=== PATIENT | female | born 1935 | race Caucasian/White ===

== ENCOUNTER 2018-03-11 20:31 | Inpatient (IN) | payer MEDICARE, OTHER ==
[2018-03-11] MEDS ORDERED: SODIUM CHLORIDE 0.9% 500 ML IV STA (21:39)
[2018-03-11] MEDS ORDERED: MORPHINE SULFATE 4 MG/ML SYRINGE IV STA (21:39)
[2018-03-11] MEDS ORDERED: ONDANSETRON 4 MG/2 ML VIAL IVP STA (21:39)
--- NOTE | 2018-03-11 21:50 | ED ---
Abdominal Pain HPI - General Chief Complaint: Abdominal Pain Stated Complaint: Abd Pain Time Seen by Provider: 03/11/18 21:25 Source: patient, family Mode of arrival: ambulatory Limitations: no limitations - History of Present Illness Initial Comments: Patient is an 82-year-old female presented for abdominal pain. She states that she called her PCP today and PCP told her that she was concerned about as by mouth because her last bowel movement was 3 days ago. The abdominal pain is described as diffuse and associated with bloating. The pain feels stabbing and constant and is better with laying down and worse with movement. She denies any fevers or chills as well as nausea/vomiting/diarrhea or urinary complaints. She also admits to some back pain for last 2 weeks - Related Data Home Medications Medication Instructions Recorded Confirmed Albuterol Sulfate [Proair Hfa] 1 - 2 puff INHALATION Q6HR PRN 03/03/16 03/03/16 Aspirin [Adult Low Dose Aspirin EC] 81 mg PO DAILY 03/03/16 03/03/16 Atorvastatin [Lipitor] 20 mg PO HS 03/03/16 03/03/16 Cetirizine HCl [Zyrtec] 10 mg PO DAILY 03/03/16 03/03/16 Cholecalciferol [Vitamin D3] 2,000 unit PO DAILY 03/03/16 03/03/16 Cyanocobalamin (Vitamin B-12) 5,000 mcg PO DAILY 03/03/16 03/03/16 [Vitamin B12] DULoxetine HCL [Cymbalta] 60 mg PO DAILY 03/03/16 03/03/16 Furosemide [Lasix] 20 mg PO DAILY PRN 03/03/16 03/03/16 HYDROcodone/APAP 10-325MG [[place] 1 tab PO Q6H PRN 03/03/16 03/03/16 10-325] Hyoscyamine Sulfate [Levsin] 0.125 mg PO AC-BRKFST 03/03/16 03/03/16 LORazepam [Ativan] 1 mg PO BID 03/03/16 03/03/16 Levothyroxine Sodium [Synthroid] 175 mcg PO DAILY 03/03/16 03/03/16 Losartan Potassium 100 mg PO DAILY 03/03/16 03/03/16 Metoprolol Succinate (ER) [Toprol 25 mg PO DAILY 03/03/16 03/03/16 Xl] Mometasone/Formoterol [Dulera 100 2 puff INHALATION BID PRN 03/03/16 03/03/16 Mcg/5 Mcg Inhaler] Multivit-Min36/Iron/Folic Acid 1 each PO DAILY 03/03/16 03/03/16 [Geritol Complete Tablet] Olympia-3 Fatty Acids [[place]-3] 1,000 mg PO DAILY 03/03/16 03/03/16 Omeprazole 40 mg PO BID 03/03/16 03/03/16 traZODone HCL [Desyrel] 100 mg PO HS 03/03/16 03/03/16 Allergies Allergy/AdvReac Type Severity Reaction Status Date / Time grass pollen Allergy Unknown Verified 03/11/18 20:59 Sulfa (Sulfonamide Allergy Rash/Hives Verified 03/11/18 21:00 Antibiotics) dust AdvReac Unknown Uncoded 03/11/18 20:59 Review of Systems ROS Statement: Those systems with pertinent positive or pertinent negative responses have been documented in the HPI. Constitutional: Negative for chills, fatigue and fever. HENT: Negative for congestion. Respiratory: Negative for chest tightness, shortness of breath and wheezing. Negative for cough Cardiovascular: Negative for chest pain and palpitations. Gastrointestinal: Positive for abdominal pain. Negative for abdominal distention , diarrhea, nausea and vomiting. Genitourinary: Negative for dysuria. Musculoskeletal: Positive for back pain, negative for neck pain and neck stiffness. Skin: Negative for color change. Neurological: Negative for dizziness, speech difficulty, weakness and light- headedness. Psychiatric/Behavioral: Negative for agitation and confusion. Negative for anxiety ROS Other: All systems not noted in ROS Statement are negative. Past Medical History Past Medical History: Asthma, Fibromyalgia, GERD/Reflux, Hyperlipidemia, Hypertension, Rheumatoid Arthritis (RA), Thyroid Disorder History of Any Multi-Drug Resistant Organisms: None Reported Past Surgical History: Appendectomy, Bariatric Surgery, Cholecystectomy, Heart Catheterization With Stent, Hysterectomy, Orthopedic Surgery Additional Past Surgical History / Comment(s): lap band 05/06/2004, left shoulder replaced, Right ear growth Past Anesthesia/Blood Transfusion Reactions: No Reported Reaction Date of Last Stent Placement:: 03/19/2010 Past Psychological History: Depression Smoking Status: Former smoker Past Alcohol Use History: Rare Past Drug Use History: None Reported - Past Family History Mother Family Medical History: Congestive Heart Failure (CHF) General Exam - General Exam Comments Initial Comments: Constitutional: Pt is oriented to person, place, and time. Pt appears well- developed and well-nourished. No distress. HENT: Head: Normocephalic and atraumatic. Eyes: EOM are normal. Neck: Normal range of motion. Neck supple. Cardiovascular: Normal rate, regular rhythm, S1 normal, S2 normal and normal heart sounds. Exam reveals no gallop and no friction rub. No murmur heard. Pulmonary/Chest: Effort normal and breath sounds normal. No tachypnea and no bradypnea. No respiratory distress. No wheezes or rales noted. Abdominal: Soft. Bowel sounds are normal. Pt exhibits no shifting dullness, no distension, no pulsatile liver, no fluid wave, no abdominal bruit and no ascites. There is no tenderness. There is no rigidity, no rebound, no guarding, no tenderness at McBurney's point and negative Abraham's sign. Musculoskeletal: Normal range of motion. Tenderness to palpation of the right paraspinal muscles in the thoracic region. No midline tenderness. Neurological: Pt is alert and oriented to person, place, and time. No cranial nerve deficit. Skin: Skin is warm and dry. No rash noted. Pt is not diaphoretic. No erythema. No pallor. Psychiatric: Pt has a normal mood and affect. Pt behavior is normal. Thought content normal. Limitations: no limitations Course Vital Signs 03/11/18 03/11/18 20:54 22:26 Temperature 99.4 F Pulse Rate 100 94 Respiratory 20 15 Rate Blood Pressure 145/69 155/67 O2 Sat by Pulse 95 93 L Oximetry Medical Decision Making - Medical Decision Making Sepsis was identified at approximately 11:30 PM secondary to diverticulitis. There is also a leukocytosis of 24 and patient was started on Rocephin and Flagyl. She was also given 30 ml/kg bolus of ideal body weight. CT was read as inflammatory changes consistent with diverticulitis in the proximal and mid sigmoid colon. Because of the significant leukocytosis and patient's comorbidities, it is felt that the patient was a poor candidate for outpatient treatment. Because of this, the patient will be admitted to the hospital. - Lab Data Result diagrams: 03/11/18 22:14 03/11/18 22:14 Lab Results 03/11/18 03/11/18 03/11/18 Range/Units 22:14 22:14 22:14 WBC 24.0 H (3.8-10.6) k/uL RBC 4.85 (3.80-5.40) m/uL Hgb 14.7 (11.4-16.0) gm/dL Hct 45.8 (34.0-46.0) % MCV 94.4 (80.0-100.0) fL MCH 30.4 (25.0-35.0) pg MCHC 32.2 (31.0-37.0) g/dL RDW 14.1 (11.5-15.5) % Plt Count 375 (150-450) k/uL Neutrophils % 85 % Lymphocytes % 8 % Monocytes % 5 % Eosinophils % 1 % Basophils % 0 % Neutrophils # 20.4 H (1.3-7.7) k/uL Lymphocytes # 2.0 (1.0-4.8) k/uL Monocytes # 1.2 H (0-1.0) k/uL Eosinophils # 0.2 (0-0.7) k/uL Basophils # 0.1 (0-0.2) k/uL Sodium 136 L (137-145) mmol/L Potassium 4.5 (3.5-5.1) mmol/L Chloride 98 (98-107) mmol/L Carbon Dioxide 25 (22-30) mmol/L Anion Gap 13 mmol/L BUN 48 H (7-17) mg/dL Creatinine 1.30 H (0.52-1.04) mg/dL Est GFR (CKD-EPI)AfAm 44 (>60 ml/min/1.73 sqM) Est GFR (CKD-EPI)NonAf 38 (>60 ml/min/1.73 sqM) Glucose 176 H (74-99) mg/dL Calcium 9.9 (8.4-10.2) mg/dL Magnesium 2.0 (1.6-2.3) mg/dL Total Bilirubin 2.1 H (0.2-1.3) mg/dL AST 17 (14-36) U/L ALT 29 (9-52) U/L Alkaline Phosphatase 75 (38-126) U/L Total Protein 6.5 (6.3-8.2) g/dL Albumin 3.9 (3.5-5.0) g/dL Lipase 37 (23-300) U/L Urine Color Yellow Urine Appearance Cloudy H (Clear) Urine pH 5.5 (5.0-8.0) Ur Specific [place] 1.016 (1.001-1.035) Urine Protein Trace H (Negative) Urine Glucose (UA) Negative (Negative) Urine Ketones Negative (Negative) Urine Blood Negative (Negative) Urine Nitrite Negative (Negative) Urine Bilirubin Negative (Negative) Urine Urobilinogen <2.0 (<2.0) mg/dL Ur Leukocyte Esterase Moderate H (Negative) Urine RBC <1 (0-5) /hpf Urine WBC 14 H (0-5) /hpf Ur Squamous Epith Cells 8 H (0-4) /hpf Hyaline Casts 3 H (0-2) /lpf Urine Mucus Rare H (None) /hpf Disposition Clinical Impression: Diverticulitis, Sepsis Disposition: ADMITTED IP TO THIS [facility] Condition: Fair Referrals: Kristin Pollard MD [Primary Care Provider] - 1-2 days Decision to Admit Reason: Admit from EC Decision Date: 03/12/18 Decision Time: 00:14
[2018-03-11 22:28] LABS: Appearance,Urine Cloudy (Clear); Basophils # (A) 0.1 k/uL (0-0.2); Basophils % (A) 0 %; Bilirubin,Urine Negative (Negative); Blood,Urine Negative (Negative); Color,Urine Yellow; Eosinophils # (A) 0.2 k/uL (0-0.7); Eosinophils % (A) 1 %; Glucose,Urine (UA) Negative (Negative); HCT 45.8 % (34.0-46.0); HGB 14.7 gm/dL (11.4-16.0); Hyaline Casts,Urine 3 /lpf (0-2); Ketones,Urine Negative (Negative); Leukocyte Esterase,Urine Moderate (Negative); Lymphocytes % (A) 8 %; MCH 30.4 pg (25.0-35.0); MCHC 32.2 g/dL (31.0-37.0); MCV 94.4 fL (80.0-100.0); Mean Platelet Volume 7.2; Monocytes # (A) 1.2 k/uL (0-1.0); Monocytes % (A) 5 %; Mucus,Urine Rare /hpf; Neutrophils # (A) 20.4 k/uL (1.3-7.7); Neutrophils % (A) 85 %; Nitrite,Urine Negative (Negative); PH, Urine 5.5 (5.0-8.0); Platelet Count 375 k/uL (150-450); Protein,Urine Trace (Negative); RBC 4.85 m/uL (3.80-5.40); RBC,Urine <1 /hpf (0-5); RDW 14.1 % (11.5-15.5); Specific Gravity,Urine 1.016 (1.001-1.035); Squamous Epithelial Cell,Urine 8 /hpf (0-4); Urobilinogen,Urine <2.0 mg/dL (<2.0); WBC,Urine 14 /hpf (0-5)
[2018-03-11 22:37] LABS: Albumin 3.9 g/dL (3.5-5.0); Calcium 9.9 mg/dL (8.4-10.2); Potassium 4.5 mmol/L (3.5-5.1); Total Bilirubin 2.1 mg/dL (0.2-1.3); Total Protein 6.5 g/dL (6.3-8.2)
--- NOTE | 2018-03-11 23:04 | CT ---
EXAMINATION TYPE: CT abdomen pelvis wo con DATE OF EXAM: 03/11/2018 COMPARISON: 06/12/2011 HISTORY: Right flank pain and constipation. CT DLP: 1361.5 mGycm Automated exposure control for dose reduction was used. TECHNIQUE: Helical acquisition of images was performed from the lung bases through the pelvis. FINDINGS: Lung bases are clear. There is no pleural effusion. There is small hiatal hernia. There is a gastric sleeve. There are clips from cholecystectomy. Liver and spleen appear normal. There is no pancreatic mass. Bi le ducts are not dilated. There is no adrenal mass. Kidneys have normal size. There is 4.5 cm cyst on the lower pole right kidn ey. There is no hydronephrosis. Ureters are not dilated. There is inferior vena cava filter noted. Ab dominal aorta is atheromatous. There is some fat stranding around the proximal sigmoid colon and mid sigmoid colon. There are taisha us sigmoid diverticula. There is umbilical hernia that contains fat. The lumbar vertebra have normal alignment. There is no compression fracture. Bladder distends smoothly. There is no pelvic mass. IMPRESSION: THERE ARE INFLAMMATORY CHANGES CONSISTENT WITH DIVERTICULITIS IN THE PROXIMAL AND MID SIGMOID COLON. THIS IS NEW COMPARED TO OLD CT SCAN. RIGHT RENAL CORTICAL CYST.
[2018-03-12] MEDS ORDERED: cefTRIAXone IN SWFI 1,000 MG/10 ML SYRINGE IVP STA (00:02)
[2018-03-12] MEDS ORDERED: ONDANSETRON 4 MG/2 ML VIAL IVP PRN (00:07)
[2018-03-12] MEDS ORDERED: NALOXONE 0.4 MG/ML 1 ML VIAL IV PRN (00:07)
[2018-03-12] MEDS ORDERED: metroNIDAZOLE-NS PMX 500 MG in SALINE 1 100ML.BAG IVPB ONE (00:15)
[2018-03-12] MEDS: SODIUM CHLORIDE 0.9% 500 ML IV SCH ×2 (00:46→01:42)
[2018-03-12] MEDS: MORPHINE SULFATE 4 MG/ML SYRINGE IV PRN ×4 (01:03→21:50)
[2018-03-12] MEDS: metroNIDAZOLE-NS PMX 500 MG in SALINE 1 100ML.BAG IVPB SCH ×3 (08:30→23:53)
[2018-03-12 12:14] LABS: Albumin 2.9 g/dL (3.5-5.0); Potassium 4.7 mmol/L (3.5-5.1); Total Bilirubin 1.3 mg/dL (0.2-1.3); Total Protein 5.2 g/dL (6.3-8.2)
[2018-03-12 12:16] LABS: Basophils # (A) 0.1 k/uL (0-0.2); Basophils % (A) 0 %; Eosinophils # (A) 0.2 k/uL (0-0.7); Eosinophils % (A) 1 %; HCT 39.2 % (34.0-46.0); HGB 12.6 gm/dL (11.4-16.0); Lymphocytes # (A) 1.6 k/uL (1.0-4.8); Lymphocytes % (A) 9 %; MCH 30.6 pg (25.0-35.0); MCHC 32.2 g/dL (31.0-37.0); MCV 94.8 fL (80.0-100.0); Mean Platelet Volume 7.3; Monocytes % (A) 5 %; Neutrophils # (A) 15.8 k/uL (1.3-7.7); Neutrophils % (A) 84 %; Platelet Count 277 k/uL (150-450); RBC 4.14 m/uL (3.80-5.40); RDW 13.8 % (11.5-15.5); WBC 18.8 k/uL (3.8-10.6)
[2018-03-12] MEDS: LEVOFLOXACIN 500MG-D5W PMX 500 MG in DEXTROSE/WATER 1 100ML.BAG IVPB SCH (12:50)
[2018-03-12] MEDS: HEPARIN SODIUM,PORCINE 5,000 UNIT/ML 1 ML VIAL SQ SCH ×2 (15:34→23:54)
[2018-03-12] MEDS ORDERED: FAMOTIDINE 20 MG TAB PO PRN (17:07)
[2018-03-12] MEDS ORDERED: KETOTIFEN 0.025% OPHTH DROPS 5 ML BTL BOTH EYES PRN (17:07)
[2018-03-12] MEDS: ATORVASTATIN 20 MG TAB PO SCH (21:50)
[2018-03-12] MEDS: GABAPENTIN 300 MG CAP PO SCH (21:50)
[2018-03-13] MEDS: LORazepam 1 MG TAB PO SCH ×3 (03:25→20:50)
[2018-03-13] MEDS: LEVOTHYROXINE 100 MCG TAB PO SCH (06:23)
[2018-03-13] MEDS: metroNIDAZOLE-NS PMX 500 MG in SALINE 1 100ML.BAG IVPB SCH ×3 (07:38→23:39)
[2018-03-13] MEDS: ASPIRIN 81 MG PO SCH (07:38)
[2018-03-13] MEDS: DULoxetine HCL 60 MG CAPSULE.DR PO SCH (07:38)
[2018-03-13] MEDS: HEPARIN SODIUM,PORCINE 5,000 UNIT/ML 1 ML VIAL SQ SCH ×3 (07:38→21:57)
[2018-03-13] MEDS: CHOLECALCIFEROL 1,000 UNIT TAB PO SCH (07:38)
[2018-03-13] MEDS: MULTIVITAMINS, THERA 1 EACH TAB PO SCH (07:39)
[2018-03-13] MEDS: GABAPENTIN 300 MG CAP PO SCH ×3 (07:39→20:50)
[2018-03-13] MEDS: MONTELUKAST 10 MG TAB PO SCH (07:39)
[2018-03-13] MEDS: LOSARTAN 50 MG TAB PO SCH (07:39)
[2018-03-13] MEDS: LORATADINE 10 MG TAB PO SCH (07:39)
[2018-03-13 08:24] LABS: Basophils % (A) 0 %; Eosinophils # (A) 0.3 k/uL (0-0.7); Eosinophils % (A) 2 %; HCT 35.3 % (34.0-46.0); HGB 11.5 gm/dL (11.4-16.0); Lymphocytes # (A) 1.8 k/uL (1.0-4.8); Lymphocytes % (A) 14 %; MCH 31.1 pg (25.0-35.0); MCHC 32.6 g/dL (31.0-37.0); MCV 95.3 fL (80.0-100.0); Mean Platelet Volume 7.2; Monocytes # (A) 0.8 k/uL (0-1.0); Monocytes % (A) 6 %; Neutrophils % (A) 77 %; Platelet Count 259 k/uL (150-450); RDW 13.8 % (11.5-15.5); WBC 13.1 k/uL (3.8-10.6)
[2018-03-13 08:32] LABS: Albumin 2.7 g/dL (3.5-5.0); Calcium 8.9 mg/dL (8.4-10.2); Potassium 4.2 mmol/L (3.5-5.1); Total Protein 4.9 g/dL (6.3-8.2)
[2018-03-13] MEDS: LEVOFLOXACIN 500MG-D5W PMX 500 MG in DEXTROSE/WATER 1 100ML.BAG IVPB SCH (13:26)
[2018-03-13] MEDS ORDERED: SODIUM CHLORIDE 0.9% 500 ML IV ONE (14:27)
--- NOTE | 2018-03-13 18:44 | P.HPIM ---
History of Present Illness H&P Date: 03/12/18 Chief Complaint: Abdominal pain Patient is a 80-year-old female with a known history of hypertension, hyperlipidemia, coronary artery disease and stent placement, rheumatoid arthritis and fibromyalgia as well as hypothyroidism presented to ER with complaints of abdominal pain started about 3 days ago. Patient was also having constipation and not eating very well. Patient was having nausea and vomiting.Abdominalpainismainlydiffuseandassociatedwithbloating-likefeeling. Patient does have subjective fevers and denied any chills. Denied any dysuria or hematuria. No commerce of chest pain or shortness of breath. CT of the abdominal pelvis in the ER showed there are inflammatory changes consistent with diverticulitis in the proximal sigmoid colon. This is new compared to old computed tomography scan. Right renal cortical cyst. WBC 24 on admission. Review of Systems Constitutional: Patient denies any fever or chills . No generalized weakness or weight loss. Abdomen: Patient does have diffuse abdominal pain and nausea. No vomiting. Patient does have constipation. Cardiovascular: Patient denies any chest pain or short of breath no palpitations. Respiratory: patient denied any cough is from production. No shortness of breath Neurologic: Patient denied any numbness or tingling headache. Musculoskeletal: Patient denies any complaints of joint swelling or deformity. Skin: Negative Psychiatric: Negative Endocrine: No heat or cold intolerance. No recent weight gain. Genitourinary: No dysuria or hematuria. All other 14 point ROS negative except the above Past Medical History Past Medical History: Asthma, Fibromyalgia, GERD/Reflux, Hyperlipidemia, Hypertension, Rheumatoid Arthritis (RA), Thyroid Disorder History of Any Multi-Drug Resistant Organisms: None Reported Past Surgical History: Appendectomy, Bariatric Surgery, Cholecystectomy, Heart Catheterization With Stent, Hysterectomy, Orthopedic Surgery Additional Past Surgical History / Comment(s): lap band 05/06/2004, left shoulder replaced, Right ear growth Past Anesthesia/Blood Transfusion Reactions: No Reported Reaction Date of Last Stent Placement:: 03/19/2010 Past Psychological History: Depression Smoking Status: Former smoker Past Alcohol Use History: Rare Past Drug Use History: None Reported - Past Family History Mother Family Medical History: Congestive Heart Failure (CHF) Medications and Allergies Home Medications Medication Instructions Recorded Confirmed Type Aspirin [Adult Low Dose Aspirin EC] 81 mg PO DAILY 03/03/16 03/12/18 History Atorvastatin [Lipitor] 20 mg PO HS 03/03/16 03/12/18 History Cetirizine HCl [Zyrtec] 10 mg PO DAILY 03/03/16 03/12/18 History Cholecalciferol [Vitamin D3] 2,000 unit PO DAILY 03/03/16 03/12/18 History DULoxetine HCL [Cymbalta] 60 mg PO DAILY 03/03/16 03/12/18 History HYDROcodone/APAP 10-325MG [[place] 1 tab PO Q6H PRN 03/03/16 03/12/18 History 10-325] Hyoscyamine Sulfate [Levsin] 0.125 mg PO DAILY 03/03/16 03/12/18 History LORazepam [Ativan] 1 mg PO BID 03/03/16 03/12/18 History Multivit-Min36/Iron/Folic Acid 1 tab PO DAILY 03/03/16 03/12/18 History [Geritol Complete Tablet] Famotidine [Pepcid] 20 mg PO DAILY PRN 03/12/18 03/12/18 History Gabapentin 600 mg PO TID 03/12/18 03/12/18 History Levothyroxine Sodium [Synthroid] 200 mcg PO DAILY 03/12/18 03/12/18 History Losartan [Cozaar] 50 mg PO DAILY 03/12/18 03/12/18 History Montelukast [Singulair] 10 mg PO DAILY 03/12/18 03/12/18 History Olopatadine HCl [Pataday] 1 - 2 drop BOTH EYES Q8H PRN 03/12/18 03/12/18 History Allergies Allergy/AdvReac Type Severity Reaction Status Date / Time grass pollen Allergy Unknown Verified 03/12/18 12:34 Sulfa (Sulfonamide Allergy Rash/Hives Verified 03/12/18 12:34 Antibiotics) dust AdvReac Unknown Uncoded 03/11/18 20:59 Physical Exam Vitals: Vital Signs Temp Pulse Pulse Resp BP BP Pulse Ox 03/12/18 05:57 96.6 F L 78 18 145/58 96 03/12/18 01:39 97.5 F L 87 18 110/56 90 L 03/12/18 01:30 87 18 03/12/18 00:59 97.5 F L 64 16 134/60 98 03/11/18 22:26 94 15 155/67 93 L 03/11/18 20:54 99.4 F 100 20 145/69 95 Intake and Output 03/11/18 03/12/18 03/12/18 22:59 06:59 14:59 Other: # Voids 1 Weight 117.934 kg PHYSICAL EXAMINATION: Patient is lying in the bed comfortably, no acute distress, awake alert and oriented.. HEENT: Normocephalic. Neck is supple. Pupils reactive. Nostrils clear. Oral cavity is moist. Ears reveal no drainage. Neck reveals no JVD, carotid bruits, or thyromegaly. CHEST EXAMINATION: Trachea is central. Symmetrical expansion. Lung peck clear to auscultation and percussion. CARDIAC: Normal S1, S2 with no gallops. No murmurs ABDOMEN: Soft. Mild lower abdominal tenderness. Bowel sounds diminished. No organomegaly. No abdominal bruits. Extremities: reveal no edema. No clubbing or cyanosis Neurologically awake, alert, oriented x3 with well-coordinated movements. No focal deficits noted Skin: No rash or skin lesions. Psychiatric: Coperative. Nonsuicidal Musculoskeletal: No joint swelling or deformity. Normal range of motion. Results CBC & Chem 7: 03/13/18 07:32 03/13/18 07:32 Labs: Abnormal Lab Results - Last 24 Hours (Table) 03/11/18 03/11/18 03/11/18 Range/Units 22:14 22:14 22:14 WBC 24.0 H (3.8-10.6) k/uL Neutrophils # 20.4 H (1.3-7.7) k/uL Monocytes # 1.2 H (0-1.0) k/uL Sodium 136 L (137-145) mmol/L BUN 48 H (7-17) mg/dL Creatinine 1.30 H (0.52-1.04) mg/dL Glucose 176 H (74-99) mg/dL Total Bilirubin 2.1 H (0.2-1.3) mg/dL Urine Appearance Cloudy H (Clear) Urine Protein Trace H (Negative) Ur Leukocyte Esterase Moderate H (Negative) Urine WBC 14 H (0-5) /hpf Ur Squamous Epith Cells 8 H (0-4) /hpf Hyaline Casts 3 H (0-2) /lpf Urine Mucus Rare H (None) /hpf Microbiology - Last 24 Hours (Table) 03/12/18 00:00 Urine Culture - Preliminary Urine,Clean Catch Thrombosis Risk Factor Assmnt - DVT/VTE Prophylaxis DVT/VTE Prophylaxis: Pharmacologic Prophylaxis ordered - Choose All That Apply Any of the Below Risk Factors Present?: Yes Each Factor Represents 1 point: Abnormal pulmonary function (COPD), Heart failure (<1month), Medical pt on bed rest, Obesity (BMI >25) Other Risk Factors: Yes Each Risk Factor Represents 3 Points: Age 75 years or older, History of DVT/PE Thrombosis Risk Factor Assessment Total Risk Factor Score: 10 Thrombosis Risk Factor Assessment Level: High Risk Assessment and Plan Assessment: Abdominal pain secondary to acute diverticulitis Possible urinary tract infection Sepsis secondary to above Hypertension Hyperlipidemia Rheumatoid arthritis Fibromyalgia Asthma stable Coronary artery disease with history of stent placement Hypothyroidism Depression History of smoking Osteoarthritis Morbid obesity BMI 50.8 DVT prophylaxis with heparin subcu Plan: Patient be continued on antibiotics in the form of Levaquin and Flagyl. Continue with IV fluids and pain management. Continue with nothing by mouth for now and start on liquid diet when symptomatically improves. Follow-up CBC and renal function. We'll check TSH and free T4 level Continue with home medications and further recommendations based on the clinical course. Time with Patient: Greater than 30
--- NOTE | 2018-03-13 18:49 | P.PN ---
Subjective Progress Note Date: 03/13/18 Principal diagnosis: Acute diverticulitis Patient is a 80-year-old female with a known history of hypertension, hyperlipidemia, coronary artery disease and stent placement, rheumatoid arthritis and fibromyalgia as well as hypothyroidism presented to ER with complaints of abdominal pain started about 3 days ago. Patient was also having constipation and not eating very well. Patient was having nausea and vomiting.Abdominalpainismainlydiffuseandassociatedwithbloating-likefeeling. Patient does have subjective fevers and denied any chills. Denied any dysuria or hematuria. No commerce of chest pain or shortness of breath. CT of the abdominal pelvis in the ER showed there are inflammatory changes consistent with diverticulitis in the proximal sigmoid colon. This is new compared to old computed tomography scan. Right renal cortical cyst. WBC 24 on admission. 03/13/2018 Patient says that she is having generalized weakness and fatigue. Abdominal pain improved otherwise. WBC count improved to 13.1 today. Creatinine still at 1.3. Otherwise urine culture showed Pseudomonas species. Patient is being continued on antibiotics and IV fluids. will consult ID for antibiotic regimen. Patient did not have any bowel movement for the last 2-3 days.. Stool soft will be added. Patient is tolerating liquid diet. All other review of systems negative except the above Current medications reviewed Objective - Vital Signs Vital signs: Vital Signs Temp 98.4 F 03/13/18 14:45 Pulse 68 03/13/18 15:31 Resp 16 03/13/18 14:45 BP 111/52 03/13/18 15:31 Pulse Ox 90 L 03/13/18 14:45 Intake & Output 03/12/18 03/13/18 03/13/18 18:59 06:59 18:59 Other: Voiding Method Toilet Toilet # Voids 3 2 2 # Bowel Movements 0 0 - Exam PHYSICAL EXAMINATION: Patient is lying in the bed comfortably, no acute distress, awake alert and oriented.. HEENT: Normocephalic. Neck is supple. Pupils reactive. Nostrils clear. Oral cavity is moist. Ears reveal no drainage. Neck reveals no JVD, carotid bruits, or thyromegaly. CHEST EXAMINATION: Trachea is central. Symmetrical expansion. Lung peck clear to auscultation and percussion. CARDIAC: Normal S1, S2 with no gallops. No murmurs ABDOMEN: Soft. Mild lower abdominal tenderness. Bowel sounds diminished. No organomegaly. No abdominal bruits. Extremities: reveal no edema. No clubbing or cyanosis Neurologically awake, alert, oriented x3 with well-coordinated movements. No focal deficits noted Skin: No rash or skin lesions. Psychiatric: Coperative. Nonsuicidal Musculoskeletal: No joint swelling or deformity. Normal range of motion. - Labs CBC & Chem 7: 03/13/18 07:32 03/13/18 07:32 Labs: Abnormal Lab Results - Last 24 Hours (Table) 03/13/18 03/13/18 Range/Units 07:32 07:32 WBC 13.1 H (3.8-10.6) k/uL RBC 3.70 L (3.80-5.40) m/uL Neutrophils # 10.0 H (1.3-7.7) k/uL Sodium 135 L (137-145) mmol/L Carbon Dioxide 31 H (22-30) mmol/L BUN 43 H (7-17) mg/dL Creatinine 1.38 H (0.52-1.04) mg/dL Glucose 109 H (74-99) mg/dL AST 12 L (14-36) U/L Total Protein 4.9 L (6.3-8.2) g/dL Albumin 2.7 L (3.5-5.0) g/dL Microbiology - Last 24 Hours (Table) 03/12/18 00:00 Urine Culture - Preliminary Urine,Clean Catch Pseudomonas spec 03/12/18 00:34 Blood Culture - Preliminary Blood No Growth after 24 hours Assessment and Plan Assessment: Abdominal pain secondary to acute diverticulitis Pseudomonas urinary tract infection. Urine culture showed 10-49,000 CFU Sepsis secondary to above Hypertension Hyperlipidemia Rheumatoid arthritis Fibromyalgia Asthma stable Coronary artery disease with history of stent placement Hypothyroidism Depression History of smoking Osteoarthritis Morbid obesity BMI 50.8 DVT prophylaxis with heparin subcu Plan: Patient be continued on antibiotics in the form of Levaquin and Flagyl. Continue with IV fluids and pain management. Continue with nothing by mouth for now and start on liquid diet when symptomatically improves. Follow-up CBC and renal function. We'll check TSH and free T4 level Continue with home medications and further recommendations based on the clinical course. Time with Patient: Greater than 30
[2018-03-13] MEDS: SODIUM CHLORIDE 0.9% 1,000 ML IV SCH (20:48)
[2018-03-13] MEDS: ATORVASTATIN 20 MG TAB PO SCH (20:50)
[2018-03-13] MEDS: DOCUSATE 100 MG CAP PO SCH (20:50)
[2018-03-13] MEDS: Acetaminophen-Codeine 300-30mg TAB PO PRN (21:55)
[2018-03-14] MEDS: SODIUM CHLORIDE 0.9% 1,000 ML IV SCH ×3 (06:08→23:57)
[2018-03-14] MEDS: LEVOTHYROXINE 100 MCG TAB PO SCH (06:26)
[2018-03-14 08:22] LABS: Basophils % (A) 0 %; Eosinophils # (A) 0.2 k/uL (0-0.7); Eosinophils % (A) 2 %; HCT 34.4 % (34.0-46.0); HGB 11.1 gm/dL (11.4-16.0); Lymphocytes # (A) 1.9 k/uL (1.0-4.8); Lymphocytes % (A) 19 %; MCHC 32.2 g/dL (31.0-37.0); MCV 96.1 fL (80.0-100.0); Mean Platelet Volume 7.4; Monocytes # (A) 0.6 k/uL (0-1.0); Monocytes % (A) 6 %; Neutrophils # (A) 6.8 k/uL (1.3-7.7); Neutrophils % (A) 70 %; Platelet Count 253 k/uL (150-450); RBC 3.57 m/uL (3.80-5.40); RDW 13.9 % (11.5-15.5); WBC 9.6 k/uL (3.8-10.6)
[2018-03-14 08:46] LABS: Calcium 8.6 mg/dL (8.4-10.2); Potassium 3.9 mmol/L (3.5-5.1)
[2018-03-14] MEDS: HEPARIN SODIUM,PORCINE 5,000 UNIT/ML 1 ML VIAL SQ SCH ×3 (09:01→23:57)
[2018-03-14] MEDS: metroNIDAZOLE-NS PMX 500 MG in SALINE 1 100ML.BAG IVPB SCH (09:01)
[2018-03-14] MEDS: GABAPENTIN 300 MG CAP PO SCH ×3 (09:02→21:43)
[2018-03-14] MEDS: MULTIVITAMINS, THERA 1 EACH TAB PO SCH (09:02)
[2018-03-14] MEDS: CHOLECALCIFEROL 1,000 UNIT TAB PO SCH (09:02)
[2018-03-14] MEDS: DULoxetine HCL 60 MG CAPSULE.DR PO SCH (09:02)
[2018-03-14] MEDS: MONTELUKAST 10 MG TAB PO SCH (09:02)
[2018-03-14] MEDS: ASPIRIN 81 MG PO SCH (09:02)
[2018-03-14] MEDS: LORATADINE 10 MG TAB PO SCH (09:02)
[2018-03-14] MEDS: LORazepam 1 MG TAB PO SCH (09:03)
[2018-03-14] MEDS: DOCUSATE 100 MG CAP PO SCH ×2 (09:04→21:44)
--- NOTE | 2018-03-14 09:42 | XR ---
EXAMINATION TYPE: XR abdomen 1V DATE OF EXAM: 03/14/2018 COMPARISON: None INDICATION: Distention, diverticulitis TECHNIQUE: Single view abdomen supine view FINDINGS: There is a normal bowel gas pattern. Psoas margins are normal. No organomegaly is present. Filter is within the inferior vena cava region. Port and lap band are present. Surgical clips from ch olecystectomy are evident. IMPRESSION: 1. Unremarkable Abdomen
[2018-03-14 09:57] LABS: T4, Free (Free Thyroxine) 1.68 ng/dL (0.78-2.19)
[2018-03-14] MEDS: Acetaminophen-Codeine 300-30mg TAB PO PRN ×2 (11:25→21:49)
[2018-03-14] MEDS: LOSARTAN 50 MG TAB PO SCH (11:56)
[2018-03-14] MEDS ORDERED: LEVOFLOXACIN 250MG-D5W PMX 250 MG in DEXTROSE/WATER 1 50ML.BAG IVPB SCH (12:30)
[2018-03-14] MEDS: metroNIDAZOLE 500 MG TAB PO SCH ×2 (15:53→21:43)
--- NOTE | 2018-03-14 16:34 | P.PN ---
Subjective Progress Note Date: 03/14/18 Progress note being dictated for for Dr. Rodarte Interval history:Patient is a 80-year-old female with a known history of hypertension, hyperlipidemia, coronary artery disease and stent placement, rheumatoid arthritis and fibromyalgia as well as hypothyroidism presented to ER with complaints of abdominal pain started about 3 days ago. Patient was also having constipation and not eating very well. Patient was having nausea and vomiting.Abdominalpainismainlydiffuseandassociatedwithbloating-likefeeling. Patient does have subjective fevers and denied any chills. Denied any dysuria or hematuria. No commerce of chest pain or shortness of breath. CT of the abdominal pelvis in the ER showed there are inflammatory changes consistent with diverticulitis in the proximal sigmoid colon. This is new compared to old computed tomography scan. Right renal cortical cyst. WBC 24 on admission. 03/13/2018 Patient says that she is having generalized weakness and fatigue. Abdominal pain improved otherwise. WBC count improved to 13.1 today. Creatinine still at 1.3. Otherwise urine culture showed Pseudomonas species. Patient is being continued on antibiotics and IV fluids. will consult ID for antibiotic regimen. Patient did not have any bowel movement for the last 2-3 days.. Stool soft will be added. Patient is tolerating liquid diet. All other review of systems negative except the above Current medications reviewed 03/14/2018 tolerating regular diet. Mild nausea with diarrhea earlier this morning. Denies abdominal pain .abdominal x-ray, unremarkable .Urine cultures reporting pseudomonas aeruginosa. Antibiotics adjusted, Levaquin discontinued, ceftazidime initiated. Maintained on gentle IV fluid hydration with creatinine 1.53. Complains of right lower posterior shoulder blade pain, reports it has been present prior to admission-had slept on couch and woke up with it. Objective - Vital Signs Vital signs: Vital Signs Temp 97.1 F L 03/14/18 15:00 Pulse 73 03/14/18 15:00 Resp 16 03/14/18 15:00 BP 130/68 03/14/18 15:00 Pulse Ox 96 03/14/18 15:00 Intake & Output 03/13/18 03/14/18 03/14/18 18:59 06:59 18:59 Other: Voiding Method Toilet Toilet Toilet Bedside Commode Bedside Commode # Voids 2 4 2 # Bowel Movements 0 4 2 - Exam PHYSICAL EXAMINATION: Patient is sitting up in the bed comfortably, no acute distress, awake alert and oriented.. HEENT: Normocephalic. Neck is supple. Pupils reactive. Nostrils clear. Oral cavity is moist. Neck reveals no JVD, carotid bruits, or thyromegaly. CHEST EXAMINATION: Trachea is central. Symmetrical expansion. Lung peck clear to auscultation and percussion. CARDIAC: Normal S1, S2 with no gallops. No murmurs ABDOMEN: Soft. Mild lower abdominal tenderness. Bowel sounds diminished. No organomegaly. No abdominal bruits. Extremities: reveal no edema. No clubbing or cyanosis Neurologically awake, alert, oriented x3 with well-coordinated movements. No focal deficits noted Skin: No rash or skin lesions. Psychiatric: Coperative. Nonsuicidal Musculoskeletal: No joint swelling or deformity. Normal range of motion. - Labs CBC & Chem 7: 03/14/18 07:20 03/14/18 07:20 Labs: Abnormal Lab Results - Last 24 Hours (Table) 03/14/18 03/14/18 Range/Units 07:20 07:20 RBC 3.57 L (3.80-5.40) m/uL Hgb 11.1 L (11.4-16.0) gm/dL Sodium 135 L (137-145) mmol/L BUN 42 H (7-17) mg/dL Creatinine 1.53 H (0.52-1.04) mg/dL Glucose 112 H (74-99) mg/dL TSH 0.198 L (0.465-4.680) mIU/L Microbiology - Last 24 Hours (Table) 03/12/18 00:00 Urine Culture - Final Urine,Clean Catch Pseudomonas aeruginosa 03/12/18 00:34 Blood Culture - Preliminary Blood No Growth after 48 hours Assessment and Plan Assessment: Abdominal pain secondary to acute diverticulitis Pseudomonas urinary tract infection. Urine culture showed 10-49,000 CFU Sepsis secondary to above Hypertension Hyperlipidemia Rheumatoid arthritis Fibromyalgia Asthma stable Coronary artery disease with history of stent placement Hypothyroidism Depression History of smoking Osteoarthritis Morbid obesity BMI 50.8 DVT prophylaxis with heparin subcu Plan: Continue on current medication regime ,monitoring. Maintain Fortaz , Flagyl. Continue with IV fluids and pain management. Cozaar and morphine have been discontinued . Close monitoring of renal function with Follow-up CBC and renal function. Discharge planning in progress for tomorrow to subacute rehab. The impression and plan of care has been dictated as directed. : I performed a history and examination of this patient, discussed the same with the dictator. I agree with the dictator's note ,documented as a scribe. Any additional findings or plans will be noted.
[2018-03-14] MEDS: ATORVASTATIN 20 MG TAB PO SCH (21:43)
[2018-03-14] MEDS: LORazepam 1 MG TAB PO PRN (21:49)
[2018-03-15] MEDS: LEVOTHYROXINE 100 MCG TAB PO SCH (06:20)
[2018-03-15] MEDS: HEPARIN SODIUM,PORCINE 5,000 UNIT/ML 1 ML VIAL SQ SCH ×2 (08:12→16:17)
[2018-03-15] MEDS: ASPIRIN 81 MG PO SCH (08:12)
[2018-03-15] MEDS: GABAPENTIN 300 MG CAP PO SCH ×3 (08:13→22:11)
[2018-03-15] MEDS: metroNIDAZOLE 500 MG TAB PO SCH ×3 (08:13→22:11)
[2018-03-15] MEDS: DULoxetine HCL 60 MG CAPSULE.DR PO SCH (08:13)
[2018-03-15] MEDS: LORATADINE 10 MG TAB PO SCH (08:13)
[2018-03-15] MEDS: DOCUSATE 100 MG CAP PO SCH ×2 (08:13→22:10)
[2018-03-15] MEDS: CHOLECALCIFEROL 1,000 UNIT TAB PO SCH (08:13)
[2018-03-15] MEDS: MONTELUKAST 10 MG TAB PO SCH (08:14)
--- NOTE | 2018-03-15 09:38 | CONS ---
CONSULTATION DATE OF SERVICE: 03/14/2018. REASON FOR CONSULTATION: Pseudomonas urinary tract infection. HISTORY OF PRESENT ILLNESS: The patient is an 82-year-old female presenting to the ER at [facility] 03/11/2018 with chief complaint of abdominal pain. The patient's pain has been lower abdominal, more of a diffuse in nature. This was associated with bloating with intensity about 6 to 7 to 8 out of 10, and no radiation. The patient at times felt stabbing. The patient's abdominal pain was associated with constipation for 3 days. The patient nausea, but no vomiting. With these symptoms, the patient was evaluated by the ER physician. The patient did have abdomen and pelvis CT that was suggestive of a diverticulitis acute. The patient on presentation did have a low-grade fever of 99.4. She did have elevated white count 24,000. The patient also did have UA which did show moderate leukocyte esterases, 14 WBCs with culture positive for Pseudomonas aeruginosa and Infectious Disease was consulted for further recommendation. The patient has been complaining of pain mostly in the low back area, now more of dull aching pain, 4 to 5 out of 10 and no radiation. REVIEW OF SYSTEMS: CONSTITUTIONAL: Positive for weakness and low-grade fever. EYES: No complaint. ENT: No complaint. RESPIRATORY: No complaint. CARDIOVASCULAR: No complaint. GENITOURINARY: No complaint. GASTROINTESTINAL: As per HPI. MUSCULOSKELETAL: As per HPI. INTEGUMENTARY: No complaint. PSYCHOLOGICAL: No complaint. ENDOCRINE: No complaint. NEUROLOGIC: No complaint. PAST MEDICAL HISTORY: Hypertension, hyperlipidemia, gastroesophageal reflux disease, fibromyalgia, asthma, hypothyroidism, rheumatoid arthritis, and depression. PAST SURGICAL HISTORY: Lap band, left shoulder replaced, heart catheterization, cholecystectomy, bariatric surgery and appendectomy. SOCIAL HISTORY: Remote history of smoking. No drinking or any drug use. FAMILY HISTORY: Mother with history of congestive heart failure. ALLERGIES: Allergies to SULFA. MEDICATION: Medications include the patient is currently on Tylenol No.3. She is on aspirin, Lipitor, Levaquin, vitamin D3, Colace, Cymbalta, Pepcid, Neurontin, heparin, Synthroid, Claritin, Ativan, Flagyl, Singulair, Theragran, Narcan, Zofran. PHYSICAL EXAMINATION: On examination, her blood pressure is 130/68 with a pulse of 73, temperature 97.1. She is 96% on 2 L nasal cannula. General description is an elderly female up in the chair in no distress. No tachypnea or accessory muscle of respiration use. HEENT examination shows slight pallor, no scleral icterus. Oral mucosa is dry. No pharyngeal erythema or thrush. NECK: Trachea central. No thyromegaly. LUNGS: Unlabored breathing, clear to auscultation. No wheeze or crackle. HEART: S1, S2. Regular rate and rhythm. No added sound. ABDOMEN: Soft, no tenderness. No guarding or rigidity. EXTREMITIES: No edema feet. SKIN EXAMINATION: No rashes or masses palpable. NEUROLOGICAL: Patient is awake, alert, oriented x3. Mood and affect normal. LABS: Hemoglobin is 11.1, white count 13, admission white count 24,000. The BUN of 42, creatinine 1.53. Urine has been positive, urine culture with Pseudomonas aeruginosa. Blood culture has been negative. DIAGNOSTIC IMPRESSION AND PLAN: Patient admitted to the hospital with abdominal pain and constipation for the diagnosis of acute diverticulitis in the patient who also had a positive UA with underlying urinary tract infection secondary to Pseudomonas being colonized with this pathogen underlying diverticulitis could be related to the same pathogen. PLAN: 1. Discontinue Levaquin. 2. We will start the patient on Fortaz 2 gram q.8 and continue the oral Flagyl. 3. Depending upon her clinical response as well as cultures, will adjust her medications further if needed. Thank you for this consultation. Will follow this patient along with you. MMODL / IJN: [id number] /
[2018-03-15] MEDS: SODIUM CHLORIDE 0.9% 1,000 ML IV SCH ×2 (10:56→22:10)
[2018-03-15] MEDS: MULTIVITAMINS, THERA 1 EACH TAB PO SCH (11:31)
[2018-03-15] MEDS: Acetaminophen-Codeine 300-30mg TAB PO PRN (14:51)
[2018-03-15 15:39] LABS: Calcium 9.3 mg/dL (8.4-10.2); Potassium 4.4 mmol/L (3.5-5.1)
--- NOTE | 2018-03-15 16:11 | PN ---
PROGRESS NOTE DATE OF SERVICE: 03/15/2018 REASON FOR FOLLOWUP: 1. Acute sigmoid diverticulitis. 2. UTI. INTERVAL HISTORY: The patient did have a low-grade fever this morning of 99.4. The patient is breathing comfortably. Denies having any chest pain, shortness of breath or cough. Abdominal pain has improved. No diarrhea. Her back pain has improved as well. PHYSICAL EXAMINATION: Blood pressure 121/51 with a pulse of 72, temperature 99.4. She is 92% on room air. General description is an elderly female lying in bed in no distress. RESPIRATORY SYSTEM: Unlabored breathing. Clear to auscultation anteriorly. HEART: S1, S2. Regular rate and rhythm. ABDOMEN: Soft. No tenderness. EXTREMITIES: No edema of the feet. LABS: Hemoglobin is 11.1, white count normalized to 9.6 with a BUN of 42, creatinine 1.53. DIAGNOSTIC IMPRESSION AND PLAN: Patient admitted to hospital with abdominal pain in a patient who has been diagnosed with acute sigmoid diverticulitis, and the patient also has evidence of Pseudomonas aeruginosa urinary tract infection. Plan at this time is to give the patient Fortaz and Flagyl, and if she continues to improve, to finish therapy with oral Cipro 500 mg b.i.d. along with the Flagyl 500 mg t.i.d. for another 10 days with close outpatient followup. MMODL / IJN: [id number] /
[2018-03-15] MEDS: CHOLESTYRAMINE (WITH SUGAR) 4 GM PACKET PO SCH ×2 (16:16→18:21)
--- NOTE | 2018-03-15 18:17 | P.PN ---
Subjective Progress Note Date: 03/15/18 Progress note being dictated for for Dr. Rodarte Interval history:Patient is a 80-year-old female with a known history of hypertension, hyperlipidemia, coronary artery disease and stent placement, rheumatoid arthritis and fibromyalgia as well as hypothyroidism presented to ER with complaints of abdominal pain started about 3 days ago. Patient was also having constipation and not eating very well. Patient was having nausea and vomiting.Abdominalpainismainlydiffuseandassociatedwithbloating-likefeeling. Patient does have subjective fevers and denied any chills. Denied any dysuria or hematuria. No commerce of chest pain or shortness of breath. CT of the abdominal pelvis in the ER showed there are inflammatory changes consistent with diverticulitis in the proximal sigmoid colon. This is new compared to old computed tomography scan. Right renal cortical cyst. WBC 24 on admission. 03/13/2018 Patient says that she is having generalized weakness and fatigue. Abdominal pain improved otherwise. WBC count improved to 13.1 today. Creatinine still at 1.3. Otherwise urine culture showed Pseudomonas species. Patient is being continued on antibiotics and IV fluids. will consult ID for antibiotic regimen. Patient did not have any bowel movement for the last 2-3 days.. Stool soft will be added. Patient is tolerating liquid diet. All other review of systems negative except the above Current medications reviewed 03/14/2018 tolerating regular diet. Mild nausea with diarrhea earlier this morning. Denies abdominal pain .abdominal x-ray, unremarkable .Urine cultures reporting pseudomonas aeruginosa. Antibiotics adjusted, Levaquin discontinued, ceftazidime initiated. Maintained on gentle IV fluid hydration with creatinine 1.53. Complains of right lower posterior shoulder blade pain, reports it has been present prior to admission-had slept on couch and woke up with it. 03/15/18 reports couple episodes of diarrhea last night, once today. T-max 99.4. No nausea. Denies abdominal pain. Back pain controlled/better. Gentle IV fluid hydration with significant improvement in renal function. Objective - Vital Signs Vital signs: Vital Signs Temp 97.8 F 03/15/18 15:00 Pulse 94 03/15/18 15:00 Resp 16 03/15/18 15:00 BP 144/80 03/15/18 15:00 Pulse Ox 92 L 03/15/18 15:00 Intake & Output 03/14/18 03/15/18 03/15/18 18:59 06:59 18:59 Intake Total 1000 Balance 1000 Intake: Oral 1000 Other: Voiding Method Toilet Toilet Bedside Commode Bedside Commode # Voids 2 3 2 # Bowel Movements 2 3 1 - Exam PHYSICAL EXAMINATION: Patient is sitting up at bedside chair, no acute distress, awake alert and oriented.. HEENT: Normocephalic. Neck is supple. Pupils reactive. Nostrils clear. Oral cavity is moist. Neck reveals no JVD, carotid bruits, or thyromegaly. CHEST EXAMINATION: Trachea is central. Symmetrical expansion. Lung peck clear to auscultation and percussion. CARDIAC: Normal S1, S2 with no gallops. No murmurs ABDOMEN: Soft. Mild lower abdominal tenderness. Bowel sounds diminished. No organomegaly. No abdominal bruits. Extremities: reveal no edema. No clubbing or cyanosis Neurologically awake, alert, oriented x3 with well-coordinated movements. No focal deficits noted Skin: No rash or skin lesions. Psychiatric: Coperative. Nonsuicidal Musculoskeletal: No joint swelling or deformity. Normal range of motion. - Labs CBC & Chem 7: 03/14/18 07:20 03/15/18 15:11 Labs: Abnormal Lab Results - Last 24 Hours (Table) 03/15/18 Range/Units 15:11 Chloride 111 H (98-107) mmol/L BUN 22 H (7-17) mg/dL Creatinine 1.08 H (0.52-1.04) mg/dL Glucose 158 H (74-99) mg/dL Microbiology - Last 24 Hours (Table) 03/12/18 00:34 Blood Culture - Preliminary Blood No Growth after 72 hours Assessment and Plan Assessment: Abdominal pain secondary to acute diverticulitis Acute urinary tract infection with Pseudomonas. Urine culture showed 10-49,000 CFU Sepsis secondary to above Hypertension Hyperlipidemia Rheumatoid arthritis Fibromyalgia Asthma stable Coronary artery disease with history of stent placement Hypothyroidism Depression History of smoking Osteoarthritis Morbid obesity BMI 50.8 DVT prophylaxis with heparin subcu Plan: Continue on current medication regime ,monitoring. Maintain IV antibiotics as per infectious disease. Close monitoring of diarrhea with culture ordred for C. difficile colitis. Discharge planning in progress for tomorrow to subacute rehab. The impression and plan of care has been dictated as directed. : I performed a history and examination of this patient, discussed the same with the dictator. I agree with the dictator's note ,documented as a scribe. Any additional findings or plans will be noted.
[2018-03-15] MEDS: ATORVASTATIN 20 MG TAB PO SCH (22:10)
[2018-03-16] MEDS: Acetaminophen-Codeine 300-30mg TAB PO PRN (00:04)
[2018-03-16] MEDS: HEPARIN SODIUM,PORCINE 5,000 UNIT/ML 1 ML VIAL SQ SCH ×3 (00:04→09:05)
[2018-03-16] MEDS: LORazepam 1 MG TAB PO PRN (03:15)
[2018-03-16] MEDS: SODIUM CHLORIDE 0.9% 1,000 ML IV SCH (06:29)
[2018-03-16] MEDS: LEVOTHYROXINE 100 MCG TAB PO SCH (06:29)
[2018-03-16] MEDS: metroNIDAZOLE 500 MG TAB PO SCH (08:55)
[2018-03-16] MEDS: LORATADINE 10 MG TAB PO SCH (08:55)
[2018-03-16] MEDS: GABAPENTIN 300 MG CAP PO SCH (08:55)
[2018-03-16] MEDS: MONTELUKAST 10 MG TAB PO SCH (08:56)
[2018-03-16] MEDS: CHOLECALCIFEROL 1,000 UNIT TAB PO SCH (08:56)
[2018-03-16] MEDS: DOCUSATE 100 MG CAP PO SCH (08:56)
[2018-03-16] MEDS: ASPIRIN 81 MG PO SCH (08:58)
[2018-03-16] MEDS: DULoxetine HCL 60 MG CAPSULE.DR PO SCH (08:58)
[2018-03-16] MEDS: MULTIVITAMINS, THERA 1 EACH TAB PO SCH (08:58)
[2018-03-16] MEDS: CHOLESTYRAMINE (WITH SUGAR) 4 GM PACKET PO SCH (08:58)
[2018-03-16 09:02] VITALS: BP 152/68; PULSE 70; RESP 16; TEMP 99.6
--- NOTE | 2018-03-16 10:29 | P.DS ---
Providers Date of admission: 03/12/18 00:11 Expected date of discharge: 03/16/18 Attending physician: Sarah Rodarte Consults: 03/13/18 18:40 Consult Physician Routine Consulting Provider: Rosalina Carter Consult Reason/Comments: Pseudomonas UTI Do you want consulting provider notified?: Yes Primary care physician: Kristin Pollard Hospital Course: Final Diagnoses: Abdominal pain secondary to acute diverticulitis Acute urinary tract infection with Pseudomonas. Urine culture showed 10-49,000 CFU Sepsis secondary to above Acute renal failure secondary to the above Hypertension Hyperlipidemia Rheumatoid arthritis Fibromyalgia Asthma stable Coronary artery disease with history of stent placement Hypothyroidism Depression History of smoking Osteoarthritis Morbid obesity BMI 50.8 Hospital course:Patient is a 80-year-old female with a known history of hypertension, hyperlipidemia, coronary artery disease and stent placement, rheumatoid arthritis and fibromyalgia as well as hypothyroidism presented to ER with complaints of abdominal pain started about 3 days ago, renal failure. Patient was also having constipation and not eating very well. Patient was having nausea and vomiting.Abdominalpainismainlydiffuseandassociatedwithbloating -likefeeling. Patient does have subjective fevers and denied any chills. Denied any dysuria or hematuria. No commerce of chest pain or shortness of breath. CT of the abdominal pelvis in the ER showed there are inflammatory changes consistent with diverticulitis in the proximal sigmoid colon. This is new compared to old computed tomography scan. Right renal cortical cyst. WBC 24 on admission.Urine cultures reported pseudomonas aeruginosa. Evaluated by infectious disease. Maintained on antibiotics and IV fluids. Mild diarrhea yesterday, subsided. Significant clinical improvement. Cleared by infectious disease for discharge. Patient is being discharged to [facility] subacute rehab in a stable condition with guarded prognosis. Exam General: no acute distress, alert and oriented 3 CHEST EXAMINATION: Trachea is central. Symmetrical expansion. Lung peck clear to auscultation and percussion. CARDIAC: Normal S1, S2 with no gallops. No murmurs ABDOMEN: Soft. Mild lower abdominal tenderness. Bowel sounds diminished. Neurologically No focal deficits noted The impression and plan of care has been dictated as directed. : I performed a history and examination of this patient, discussed the same with the dictator. I agree with the dictator's note ,documented as a scribe. Any additional findings or plans will be noted. Time taken: 35 minutes Patient Condition at Discharge: Stable Plan - Discharge Summary New Discharge Prescriptions: New Ciprofloxacin HCl [Cipro] 500 mg PO Q12HR #20 tablet metroNIDAZOLE [Flagyl] 500 mg PO TID #30 tab Cholestyramine (with Sugar) [Questran Packet] 4 gm PO TID BETWEEN MEALS packet Continue Cholecalciferol [Vitamin D3] 2,000 unit PO DAILY Cetirizine HCl [Zyrtec] 10 mg PO DAILY DULoxetine HCL [Cymbalta] 60 mg PO DAILY Hyoscyamine Sulfate [Levsin] 0.125 mg PO DAILY Atorvastatin [Lipitor] 20 mg PO HS Multivit-Min36/Iron/Folic Acid [Geritol Complete Tablet] 1 tab PO DAILY Aspirin [Adult Low Dose Aspirin EC] 81 mg PO DAILY Gabapentin 600 mg PO TID Olopatadine HCl [Pataday] 1 - 2 drop BOTH EYES Q8H PRN PRN Reason: ITCHING EYE(S) Levothyroxine Sodium [Synthroid] 200 mcg PO DAILY Famotidine [Pepcid] 20 mg PO DAILY PRN PRN Reason: Heartburn Montelukast [Singulair] 10 mg PO DAILY Changed LORazepam [Ativan] 1 mg PO BID PRN #6 tab PRN Reason: Anxiety Discontinued HYDROcodone/APAP 10-325MG [[place] 10-325] 1 tab PO Q6H PRN PRN Reason: Pain Discharge Medication List Aspirin [Adult Low Dose Aspirin EC] 81 mg PO DAILY 03/03/16 [History] Atorvastatin [Lipitor] 20 mg PO HS 03/03/16 [History] Cetirizine HCl [Zyrtec] 10 mg PO DAILY 03/03/16 [History] Cholecalciferol [Vitamin D3] 2,000 unit PO DAILY 03/03/16 [History] DULoxetine HCL [Cymbalta] 60 mg PO DAILY 03/03/16 [History] Hyoscyamine Sulfate [Levsin] 0.125 mg PO DAILY 03/03/16 [History] Multivit-Min36/Iron/Folic Acid [Geritol Complete Tablet] 1 tab PO DAILY [History] Famotidine [Pepcid] 20 mg PO DAILY PRN 03/12/18 [History] Gabapentin 600 mg PO TID 03/12/18 [History] Levothyroxine Sodium [Synthroid] 200 mcg PO DAILY 03/12/18 [History] Montelukast [Singulair] 10 mg PO DAILY 03/12/18 [History] Olopatadine HCl [Pataday] 1 - 2 drop BOTH EYES Q8H PRN 03/12/18 [History] Ciprofloxacin HCl [Cipro] 500 mg PO Q12HR #20 tablet 03/15/18 [Rx] metroNIDAZOLE [Flagyl] 500 mg PO TID #30 tab 03/15/18 [Rx] Cholestyramine (with Sugar) [Questran Packet] 4 gm PO TID BETWEEN MEALS packet 03/16/18 [Rx] LORazepam [Ativan] 1 mg PO BID PRN #6 tab 03/16/18 [Rx] Follow up Appointment(s)/Referral(s): Wing Garcia MD [STAFF PHYSICIAN] - 3 Days (while at subacute rehab) Kristin Pollard MD [Primary Care Provider] - 3 Days (After DC from ECF) Rosalina Carter MD [STAFF PHYSICIAN] - 1 Week Patient Instructions/Handouts: Diverticulitis (DC) Activity/Diet/Wound Care/Special Instructions: Ana Rosa NOBLES, BMP in 3 days Diet: Soft bland Activity: As tolerated Discharge Disposition: TRANSFER TO SNF/ECF
[2018-03-16] MEDS ORDERED: traMADol 50 MG TAB PO PRN (10:44)
--- NOTE | 2018-03-16 10:57 | PN ---
PROGRESS NOTE DATE OF SERVICE: 03/16/2018. REASON FOR FOLLOWUP: 1. Acute sigmoid diverticulitis. 2. Pseudomonas urinary tract infection. INTERVAL HISTORY: The patient is afebrile. She is breathing comfortably. Denies having any chest pain or any cough. No abdominal pain. No diarrhea. The back pain has improved as well. PHYSICAL EXAMINATION: Blood pressure 152/68 with a pulse of 70, temperature of 99.6. She is 94% on room air. General description is an elderly female up in the bed in no distress. RESPIRATORY SYSTEM: Unlabored breathing, clear to auscultation anteriorly. HEART: S1, S2. Regular rate and rhythm. ABDOMEN: Soft, no tenderness. LABS: White count 9.6. Creatinine 1.08. DIAGNOSTIC IMPRESSION AND PLAN: Patient with acute sigmoid diverticulitis, also with Pseudomonas aeruginosa urinary tract infection, currently on Fortaz and Flagyl that will be transitioned to oral Cipro and Flagyl for 10 days with close outpatient followup. MMODL / IJN: [id number] /
== END 2018-03-16 14:27 | DRG 872 ==
LOC: EC 20:31 → 4MS4W 03-12 00:11
PROVIDERS: ADMIT Hospitalist; ATTEND Hospitalist
DX: A41.9 Sepsis, unspecified organism (principal); K57.32 Diverticulitis of large intestine without perforation or abscess without bleeding; N39.0 Urinary tract infection, site not specified; N17.9 Acute kidney failure, unspecified; Z68.43 Body mass index [BMI] 50.0-59.9, adult; E66.01 Morbid (severe) obesity due to excess calories; E03.9 Hypothyroidism, unspecified; E78.5 Hyperlipidemia, unspecified; F32.9 Major depressive disorder, single episode, unspecified; I10 Essential (primary) hypertension; I25.10 Atherosclerotic heart disease of native coronary artery without angina pectoris; J45.909 Unspecified asthma, uncomplicated; K21.9 Gastro-esophageal reflux disease without esophagitis; B96.5 Pseudomonas (aeruginosa) (mallei) (pseudomallei) as the cause of diseases classified elsewhere; K59.00 Constipation, unspecified; M06.9 Rheumatoid arthritis, unspecified; M19.90 Unspecified osteoarthritis, unspecified site; M79.7 Fibromyalgia; Z79.51 Long term (current) use of inhaled steroids; Z79.82 Long term (current) use of aspirin; Z82.49 Family history of ischemic heart disease and other diseases of the circulatory system; Z87.891 Personal history of nicotine dependence; Z90.710 Acquired absence of both cervix and uterus; Z95.5 Presence of coronary angioplasty implant and graft; Z96.612 Presence of left artificial shoulder joint; Z79.890 Hormone replacement therapy; Z79.899 Other long term (current) drug therapy; Z88.2 Allergy status to sulfonamides; Z98.84 Bariatric surgery status
CPT/HCPCS: 36415; 74018; 74176; 80048; 80053; 81001; 83605; 83690; 83735; 84439; 84443; 85025; 87040; 87077; 87086; 87186; 96361; 96374; 96375; 99285

== ENCOUNTER 2019-01-05 19:32 | Emergency (ER) | payer MEDICARE, OTHER ==
--- NOTE | 2019-01-05 19:56 | ED ---
SOB HPI - General Chief Complaint: Shortness of Breath Stated Complaint: Possible PE Time Seen by Provider: 01/05/19 19:49 Source: patient, RN notes reviewed, old records reviewed Mode of arrival: wheelchair Limitations: no limitations - History of Present Illness Initial Comments: This is an 83-year-old female who presents for evaluation recheck secondary to abnormal lab tests. Patient was sent in for abnormal with a bleeding with a d- dimer per daughter. Denies really any significant complaint has been feeling good as of late with no fevers cough or congestion no exertional dyspnea no chest pain no leg pain no leg swelling. 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 MD Complaint: shortness of breath (Patient without any real significant complaint) -: unknown Radiation: other (Patient has no pain or shortness of breath) Severity: mild Quality: other (Again patient without complaint here for abnormal lab value) Improves With: nothing Worsens With: nothing - Related Data Home Medications Medication Instructions Recorded Confirmed Aspirin [Adult Low Dose Aspirin EC] 81 mg PO DAILY 03/03/16 01/05/19 Atorvastatin [Lipitor] 20 mg PO HS 03/03/16 01/05/19 Cetirizine HCl [Zyrtec] 10 mg PO DAILY 03/03/16 01/05/19 Cholecalciferol [Vitamin D3 (25 2,000 unit PO DAILY 03/03/16 01/05/19 Mcg = 1000 Iu)] Hyoscyamine Sulfate [Levsin] 0.125 mg PO DAILY 03/03/16 01/05/19 Multivit-Min36/Iron/Folic Acid 1 tab PO DAILY 03/03/16 01/05/19 [Geritol Complete Tablet] Famotidine [Pepcid] 20 mg PO BID 03/12/18 01/05/19 Montelukast [Singulair] 10 mg PO DAILY 03/12/18 01/05/19 Albuterol Inhaler [Ventolin Hfa 1 - 2 puff INHALATION RT-Q6H PRN 01/05/19 01/05/19 Inhaler] Albuterol Nebulized [Ventolin 2.5 mg INHALATION RT-QID PRN 01/05/19 01/05/19 Nebulized] DULoxetine HCL [Cymbalta] 60 mg PO DAILY 01/05/19 01/05/19 Fluticasone Nasal [place] [Flonase 1 spray EA NOSTRIL DAILY 01/05/19 01/05/19 Nasal [place]] Fluticasone/Salmeterol [Advair 1 puff INHALATION RT-HS 01/05/19 01/05/19 250-50 Diskus] Furosemide [Lasix] 20 mg PO DAILY PRN 01/05/19 01/05/19 HYDROcodone/APAP 10-325MG [[place] 1 tab PO BID 01/05/19 01/05/19 10-325] LORazepam [Ativan] 1 mg PO HS PRN 01/05/19 01/05/19 Levothyroxine Sodium [Synthroid] 25 mcg PO HS 01/05/19 01/05/19 Levothyroxine Sodium [Synthroid] 200 mcg PO DAILY 01/05/19 01/05/19 Losartan [Cozaar] 50 mg PO DAILY 01/05/19 01/05/19 Metoprolol Succinate (ER) [Toprol 25 mg PO HS 01/05/19 01/05/19 Xl] [place]-3 Fatty Acids [[place]-3] 1,000 mg PO DAILY 01/05/19 01/05/19 Temazepam 7.5 mg PO HS 01/05/19 01/05/19 diphenhydrAMINE HCL [Benadryl] 25 mg PO HS 01/05/19 01/05/19 Allergies Allergy/AdvReac Type Severity Reaction Status Date / Time grass pollen Allergy Unknown Verified 01/05/19 20:35 Sulfa (Sulfonamide Allergy Rash/Hives Verified 01/05/19 20:35 Antibiotics) dust AdvReac Unknown Uncoded 01/05/19 19:45 Review of Systems ROS Statement: Those systems with pertinent positive or pertinent negative responses have been documented in the HPI. ROS Other: All systems not noted in ROS Statement are negative. Past Medical History Past Medical History: Asthma, Fibromyalgia, GERD/Reflux, Hyperlipidemia, H ypertension, Rheumatoid Arthritis (RA), Thyroid Disorder History of Any Multi-Drug Resistant Organisms: None Reported Past Surgical History: Appendectomy, Bariatric Surgery, Cholecystectomy, Heart Catheterization With Stent, Hysterectomy, Orthopedic Surgery Additional Past Surgical History / Comment(s): lap band 05/06/2004, left shoulder replaced, Right ear growth Past Anesthesia/Blood Transfusion Reactions: No Reported Reaction Date of Last Stent Placement:: 03/19/2010 Past Psychological History: Depression Smoking Status: Former smoker Past Alcohol Use History: Rare Past Drug Use History: None Reported - Past Family History Mother Family Medical History: Congestive Heart Failure (CHF) General Exam Limitations: no limitations General appearance: alert, in no apparent distress Head exam: Present: atraumatic, normocephalic, normal inspection Eye exam: Present: normal appearance, PERRL, EOMI. Absent: scleral icterus, conjunctival injection, periorbital swelling ENT exam: Present: normal exam, mucous membranes moist Neck exam: Present: normal inspection. Absent: tenderness, meningismus, lymphadenopathy Respiratory exam: Present: normal lung sounds bilaterally. Absent: respiratory distress, wheezes, rales, rhonchi, stridor Cardiovascular Exam: Present: regular rate, normal rhythm, normal heart sounds. Absent: systolic murmur, diastolic murmur, rubs, gallop, clicks GI/Abdominal exam: Present: soft, normal bowel sounds. Absent: distended, tenderness, guarding, rebound, rigid Extremities exam: Present: normal inspection, full ROM, normal capillary refill. Absent: tenderness, pedal edema, joint swelling, calf tenderness Back exam: Present: normal inspection Neurological exam: Present: alert, oriented X3, CN II-XII intact Psychiatric exam: Present: normal affect, normal mood Skin exam: Present: warm, dry, intact, normal color. Absent: rash Course Vital Signs 01/05/19 01/05/19 01/05/19 19:42 20:41 20:49 Temperature 98.4 F Pulse Rate 81 79 79 Respiratory 20 Rate Blood Pressure 156/62 O2 Sat by Pulse 95 Oximetry - Reevaluation(s) Reevaluation #1: 01/05/19 22:39 Medical records reviewed Reevaluation #2: 01/05/19 22:39 Patient was sent to ER for evaluation of abnormal lab tests, patient remains without complaint or distress here in the ER Medical Decision Making - Medical Decision Making 83 female the ER for evaluation, patient has no acute findings, CTA is negative for PE ultrasound lower extremities negative for DVT and patient can be discharged home - Lab Data Result diagrams: 01/05/19 20:13 01/05/19 20:13 Lab Results 01/05/19 01/05/19 01/05/19 Range/Units 20:13 20:13 20:13 WBC 9.9 (3.8-10.6) k/uL RBC 4.10 (3.80-5.40) m/uL Hgb 12.6 (11.4-16.0) gm/dL Hct 39.6 (34.0-46.0) % MCV 96.5 (80.0-100.0) fL MCH 30.7 (25.0-35.0) pg MCHC 31.8 (31.0-37.0) g/dL RDW 13.8 (11.5-15.5) % Plt Count 292 (150-450) k/uL Neutrophils % 81 % Lymphocytes % 12 % Monocytes % 5 % Eosinophils % 2 % Basophils % 0 % Neutrophils # 8.0 H (1.3-7.7) k/uL Lymphocytes # 1.2 (1.0-4.8) k/uL Monocytes # 0.4 (0-1.0) k/uL Eosinophils # 0.2 (0-0.7) k/uL Basophils # 0.0 (0-0.2) k/uL PT (9.0-12.0) sec INR (<1.2) APTT (22.0-30.0) sec Sodium 140 (137-145) mmol/L Potassium 4.1 (3.5-5.1) mmol/L Chloride 107 (98-107) mmol/L Carbon Dioxide 26 (22-30) mmol/L Anion Gap 7 mmol/L BUN 28 H (7-17) mg/dL Creatinine 0.98 (0.52-1.04) mg/dL Est GFR (CKD-EPI)AfAm 62 (>60 ml/min/1.73 sqM) Est GFR (CKD-EPI)NonAf 54 (>60 ml/min/1.73 sqM) Glucose 78 (74-99) mg/dL Calcium 10.0 (8.4-10.2) mg/dL Magnesium 2.0 (1.6-2.3) mg/dL Total Bilirubin 0.8 (0.2-1.3) mg/dL AST 17 (14-36) U/L ALT 11 (9-52) U/L Alkaline Phosphatase 71 (38-126) U/L Troponin I (0.000-0.034) ng/mL NT-Pro-B Natriuret Pep 601 pg/mL Total Protein 6.5 (6.3-8.2) g/dL Albumin 4.0 (3.5-5.0) g/dL 01/05/19 01/05/19 Range/Units 20:13 20:13 WBC (3.8-10.6) k/uL RBC (3.80-5.40) m/uL Hgb (11.4-16.0) gm/dL Hct (34.0-46.0) % MCV (80.0-100.0) fL MCH (25.0-35.0) pg MCHC (31.0-37.0) g/dL RDW (11.5-15.5) % Plt Count (150-450) k/uL Neutrophils % % Lymphocytes % % Monocytes % % Eosinophils % % Basophils % % Neutrophils # (1.3-7.7) k/uL Lymphocytes # (1.0-4.8) k/uL Monocytes # (0-1.0) k/uL Eosinophils # (0-0.7) k/uL Basophils # (0-0.2) k/uL PT 10.0 (9.0-12.0) sec INR 0.9 (<1.2) APTT 22.1 (22.0-30.0) sec Sodium (137-145) mmol/L Potassium (3.5-5.1) mmol/L Chloride (98-107) mmol/L Carbon Dioxide (22-30) mmol/L Anion Gap mmol/L BUN (7-17) mg/dL Creatinine (0.52-1.04) mg/dL Est GFR (CKD-EPI)AfAm (>60 ml/min/1.73 sqM) Est GFR (CKD-EPI)NonAf (>60 ml/min/1.73 sqM) Glucose (74-99) mg/dL Calcium (8.4-10.2) mg/dL Magnesium (1.6-2.3) mg/dL Total Bilirubin (0.2-1.3) mg/dL AST (14-36) U/L ALT (9-52) U/L Alkaline Phosphatase (38-126) U/L Troponin I <0.012 (0.000-0.034) ng/mL NT-Pro-B Natriuret Pep pg/mL Total Protein (6.3-8.2) g/dL Albumin (3.5-5.0) g/dL - EKG Data -: EKG Interpreted by Me (EKG shows sinus rhythm areas of 87, AR 140, QRS 86, QTc 457) - Radiology Data Radiology results: report reviewed (CTA negative for PE, ultrasound bilateral lower extremity is negative for PE), image reviewed Disposition Clinical Impression: Abnormal laboratory test Disposition: HOME SELF-CARE Condition: Good Instructions (If sedation given, give patient instructions): Normal Exam (ED) Is patient prescribed a controlled substance at d/c from ED?: No Referrals: Kristin Pollard MD [Primary Care Provider] - 1-2 days
[2019-01-05] MEDS ORDERED: IPRATROPIUM-ALBUTEROL 3 ML NEB INHALATION STA (20:15)
[2019-01-05] MEDS ORDERED: SODIUM CHLORIDE 0.9% 1,000 ML IV STA (20:25)
[2019-01-05 20:31] LABS: Basophils % (A) 0 %; Eosinophils # (A) 0.2 k/uL (0-0.7); Eosinophils % (A) 2 %; HCT 39.6 % (34.0-46.0); HGB 12.6 gm/dL (11.4-16.0); Lymphocytes # (A) 1.2 k/uL (1.0-4.8); Lymphocytes % (A) 12 %; MCH 30.7 pg (25.0-35.0); MCHC 31.8 g/dL (31.0-37.0); MCV 96.5 fL (80.0-100.0); Mean Platelet Volume 7.1; Monocytes # (A) 0.4 k/uL (0-1.0); Monocytes % (A) 5 %; Neutrophils % (A) 81 %; Platelet Count 292 k/uL (150-450); RDW 13.8 % (11.5-15.5); WBC 9.9 k/uL (3.8-10.6)
[2019-01-05 20:35] LABS: Potassium 4.1 mmol/L (3.5-5.1); Total Bilirubin 0.8 mg/dL (0.2-1.3); Total Protein 6.5 g/dL (6.3-8.2)
[2019-01-05 20:46] LABS: INR 0.9 (<1.2); Partial Thromboplastin Time 22.1 sec (22.0-30.0)
--- NOTE | 2019-01-05 21:41 | US ---
EXAMINATION TYPE: US venous doppler duplex LE BI DATE OF EXAM: 01/05/2019 9:30 PM COMPARISON: US CLINICAL HISTORY: Pain. Pain bilateral leg x 5 years intermittently. Hx PE, esthela filter in plac e. Pt takes baby aspirin. SIDE PERFORMED: Bilateral TECHNIQUE: The lower extremity deep venous system is examined utilizing real time linear array sonog neo with graded compression, doppler sonography and color-flow sonography. VESSELS IMAGED: External Iliac Vein (EIV) Common Femoral Vein Deep Femoral Vein Greater Saphenous Vein * Femoral Vein Popliteal Vein Proximal Calf Veins (* superficial vessels) Very limited due to large pt body habitus and pt's inability to tolerate compressions in the bilat eral femoral vein mid - distal. Right Leg: No evidence of DVT, although exam is limited. Left Leg: No evidence of DVT , although exam is limited. IMPRESSION: Negative bilateral leg duplex venous sonogram.
--- NOTE | 2019-01-05 22:04 | CT ---
EXAMINATION TYPE: CT angio chest DATE OF EXAM: 01/05/2019 9:52 PM COMPARISON: 06/09/2011 HISTORY: chest pain/sob/ elevated d dimmer CT DLP: 701.6 mGycm Automated exposure control for dose reduction was used. CONTRAST: CTA scan of the thorax is performed with IV Contrast, patient injected with 80 mL of Isovue 370, pulm onary embolism protocol. . There are 3-D post processed images. FINDINGS: There is coarse reticular interstitial density in the lung bases. There is no suspicious pulmonary ma ss. Thoracic aorta is atheromatous. There is normal contrast opacification of the pulmonary arteries. There are no filling defects. There is a few mediastinal lymph nodes that measure up to 1 cm. There are no hilar masses. Bony thorax is intact. There is 10% anterior wedging of T9 vertebra that appears old. IMPRESSION: NO EVIDENCE OF PULMONARY EMBOLISM. INTERSTITIAL PULMONARY FIBROTIC CHANGES.
[2019-01-05 23:27] VITALS: BP 187/66; PULSE 76; RESP 16; TEMP 98
== END 2019-01-05 23:27 | disposition home or self-care (01) ==
LOC: EC 19:32
DX: R79.89 Other specified abnormal findings of blood chemistry (principal); J45.909 Unspecified asthma, uncomplicated; M79.7 Fibromyalgia; K21.9 Gastro-esophageal reflux disease without esophagitis; E78.5 Hyperlipidemia, unspecified; I10 Essential (primary) hypertension; M06.9 Rheumatoid arthritis, unspecified; E07.9 Disorder of thyroid, unspecified; F32.9 Major depressive disorder, single episode, unspecified; Z87.891 Personal history of nicotine dependence; Z79.51 Long term (current) use of inhaled steroids; Z79.890 Hormone replacement therapy; Z79.899 Other long term (current) drug therapy; Z79.82 Long term (current) use of aspirin; Z88.2 Allergy status to sulfonamides; Z91.09 Other allergy status, other than to drugs and biological substances; Z91.048 Other nonmedicinal substance allergy status; Z96.612 Presence of left artificial shoulder joint
CPT/HCPCS: 36415; 94640; 93005; 83880; 80053; 83735; 84484; 85025; 85610; 85730; 93970; 71275; 99285; 96360; 96361 ×2; Q9967

== ENCOUNTER → 2019-01-05 | Outpatient (CLI) | payer MEDICARE, OTHER ==
[2019-01-05 15:42] LABS: African American GFR (CKD) 62 (>60 ml/min/1.73 sqM); Anion Gap 8 mmol/L; Blood Urea Nitrogen 23 mg/dL (7-17); Calcium 9.7 mg/dL (8.4-10.2); Carbon Dioxide 25 mmol/L (22-30); Chloride 106 mmol/L (98-107); Glucose 135 mg/dL (74-99); Potassium 4.4 mmol/L (3.5-5.1); Sodium 139 mmol/L (137-145)
== END | disposition home or self-care (01) ==
LOC: LABWHC1 15:17
PROVIDERS: ATTEND Internal Medicine
DX: R06.00 Dyspnea, unspecified (principal)
CPT/HCPCS: 36415; 80048; 85379

== ENCOUNTER 2019-04-19 17:41 | Observation (INO) | payer MEDICARE, OTHER ==
[2019-04-19] MEDS ORDERED: IPRATROPIUM-ALBUTEROL 3 ML NEB INHALATION STA (18:02)
--- NOTE | 2019-04-19 18:30 | XR ---
EXAMINATION TYPE: XR chest 2V DATE OF EXAM: 04/19/2019 COMPARISON: 06/07/2015 HISTORY: Shortness of breath with history of asthma TECHNIQUE: Frontal and lateral views of the chest are obtained. FINDINGS: There is new mild pulmonary vascular congestion and trace layering pleural effusions. Card iomediastinal silhouette is enlarged. Left humeral arthroplasty is partially visualized. Lung bases a re suboptimally evaluated given patient body habitus. No sizable pneumothorax. Moderate degenerative changes of the thoracic spine. IMPRESSION: Fluid overload with trace pleural effusions and new pulmonary vascular congestion. Consi natalie congestive heart failure.
[2019-04-19 18:34] LABS: Basophils # (A) 0.1 k/uL (0-0.2); Basophils % (A) 1 %; Eosinophils # (A) 0.1 k/uL (0-0.7); Eosinophils % (A) 2 %; HCT 39.2 % (34.0-46.0); HGB 13.4 gm/dL (11.4-16.0); Lymphocytes # (A) 0.8 k/uL (1.0-4.8); Lymphocytes % (A) 10 %; MCHC 34.1 g/dL (31.0-37.0); MCV 93.9 fL (80.0-100.0); Mean Platelet Volume 7.5; Monocytes # (A) 0.4 k/uL (0-1.0); Monocytes % (A) 5 %; Neutrophils # (A) 6.7 k/uL (1.3-7.7); Neutrophils % (A) 81 %; Platelet Count 287 k/uL (150-450); RBC 4.18 m/uL (3.80-5.40); RDW 14.4 % (11.5-15.5); WBC 8.2 k/uL (3.8-10.6)
--- NOTE | 2019-04-19 18:42 | ED ---
Chest Pain HPI - General Chief Complaint: Chest Pain Stated Complaint: SOB/chest pain Time Seen by Provider: 04/19/19 18:02 Source: patient, RN notes reviewed, old records reviewed Mode of arrival: wheelchair Limitations: no limitations - History of Present Illness Initial Comments: This is an 83-year-old female the effects for evaluation. Patient resents today for evaluation of chest pain chest pain shortness of breath 2 days. Symptoms began after taking Keflex for urinary tract infection 2 days ago. Patient was told initial antibiotic coverage was not going to switch to Keflex took it once began to experience chest pain. Patient is anxious here in the ER complaining of chest pain not feeling well and shortness of breath. She does have history of asthma high blood pressure high cholesterol MD Complaint: chest pain, other (Shortness of breath) -: days(s) (2) Onset: during rest, other (After taking antibiotics) Pain Location: substernal, left chest Pain Radiation: none Severity: mild Quality: tightness, heaviness Consistency: constant Improves With: nothing Worsens With: nothing Context: recent illness (Ureter tract infection) Anginal Symptoms: dyspnea, sense of impending doom Other Symptoms: palpitations Treatments Prior to Arrival: none - Related Data Home Medications Medication Instructions Recorded Confirmed Aspirin [Adult Low Dose Aspirin EC] 81 mg PO DAILY 03/03/16 04/19/19 Atorvastatin [Lipitor] 20 mg PO HS 03/03/16 04/19/19 Cholecalciferol [Vitamin D3 (25 2,000 unit PO DAILY 03/03/16 04/19/19 Mcg = 1000 Iu)] Hyoscyamine Sulfate [Levsin] 0.125 mg PO DAILY 03/03/16 04/19/19 Multivit-Min36/Iron/Folic Acid 1 tab PO DAILY 03/03/16 04/19/19 [Geritol Complete Tablet] Famotidine [Pepcid] 20 mg PO BID 03/12/18 04/19/19 Montelukast [Singulair] 10 mg PO DAILY 03/12/18 04/19/19 Albuterol Nebulized [Ventolin 2.5 mg INHALATION RT-QID PRN 01/05/19 04/19/19 Nebulized] DULoxetine HCL [Cymbalta] 60 mg PO DAILY 01/05/19 04/19/19 Fluticasone Nasal [place] [Flonase 1 spray EA NOSTRIL HS 01/05/19 04/19/19 Nasal [place]] Fluticasone/Salmeterol [Advair 1 puff INHALATION RT-HS 01/05/19 04/19/19 250-50 Diskus] Furosemide [Lasix] 20 mg PO DAILY PRN 01/05/19 04/19/19 HYDROcodone/APAP 10-325MG [[place] 1 tab PO BID PRN 01/05/19 04/19/19 10-325] LORazepam [Ativan] 1 mg PO BID 01/05/19 04/19/19 Levothyroxine Sodium [Synthroid] 25 mcg PO HS 01/05/19 04/19/19 Levothyroxine Sodium [Synthroid] 200 mcg PO DAILY 01/05/19 04/19/19 [place]-3 Fatty Acids [[place]-3] 1,000 mg PO DAILY 01/05/19 04/19/19 diphenhydrAMINE HCL [Benadryl] 25 mg PO HS 01/05/19 04/19/19 Gabapentin [Neurontin] 300 mg PO BID 04/19/19 04/19/19 Losartan [Cozaar] 50 mg PO DAILY 04/19/19 04/19/19 Metoprolol Succinate [Toprol XL] 25 mg PO DAILY 04/19/19 04/19/19 Allergies Allergy/AdvReac Type Severity Reaction Status Date / Time grass pollen Allergy Unknown Verified 04/19/19 18:28 Sulfa (Sulfonamide Allergy Rash/Hives Verified 04/19/19 18:28 Antibiotics) cephalexin [From Keflex] AdvReac Chest Pain Verified 04/19/19 18:28 dust AdvReac Unknown Uncoded 04/19/19 17:51 Review of Systems ROS Statement: Those systems with pertinent positive or pertinent negative responses have been documented in the HPI. ROS Other: All systems not noted in ROS Statement are negative. EKG Findings - EKG Comments: EKG Findings:: EKG shows sinus rhythm rate of 70, NH 134, QRS 80, QTC 440 Past Medical History Past Medical History: Asthma, Fibromyalgia, GERD/Reflux, Hyperlipidemia, Hypertension, Rheumatoid Arthritis (RA), Thyroid Disorder History of Any Multi-Drug Resistant Organisms: None Reported Past Surgical History: Appendectomy, Bariatric Surgery, Cholecystectomy, Heart Catheterization With Stent, Hysterectomy, Orthopedic Surgery Additional Past Surgical History / Comment(s): lap band 05/06/2004, left shoulder replaced, Right ear growth Past Anesthesia/Blood Transfusion Reactions: No Reported Reaction Date of Last Stent Placement:: 03/19/2010 Past Psychological History: Depression Smoking Status: Former smoker Past Alcohol Use History: Rare Past Drug Use History: None Reported - Past Family History Mother Family Medical History: Congestive Heart Failure (CHF) General Exam Limitations: no limitations General appearance: alert, in no apparent distress, anxious Head exam: Present: atraumatic, normocephalic, normal inspection Eye exam: Present: normal appearance, PERRL, EOMI. Absent: scleral icterus, conjunctival injection, periorbital swelling ENT exam: Present: normal exam, mucous membranes moist Neck exam: Present: normal inspection. Absent: tenderness, meningismus, lymphadenopathy Respiratory exam: Present: normal lung sounds bilaterally. Absent: respiratory distress, wheezes, rales, rhonchi, stridor Cardiovascular Exam: Present: regular rate, normal rhythm, normal heart sounds. Absent: systolic murmur, diastolic murmur, rubs, gallop, clicks GI/Abdominal exam: Present: soft, normal bowel sounds. Absent: distended, tenderness, guarding, rebound, rigid Extremities exam: Present: normal inspection, full ROM, normal capillary refill. Absent: tenderness, pedal edema, joint swelling, calf tenderness Back exam: Present: normal inspection Neurological exam: Present: alert, oriented X3, CN II-XII intact Psychiatric exam: Present: normal affect, normal mood Skin exam: Present: warm, dry, intact, normal color. Absent: rash Course Vital Signs 04/19/19 04/19/19 04/19/19 17:46 18:08 18:10 Temperature 97.9 F Pulse Rate 81 71 73 Respiratory 20 Rate Blood Pressure 180/74 O2 Sat by Pulse 98 98 79 L Oximetry 04/19/19 04/19/19 04/19/19 18:20 18:30 18:38 Temperature Pulse Rate 71 70 Respiratory Rate Blood Pressure 145/94 145/94 O2 Sat by Pulse 97 Oximetry 04/19/19 04/19/19 04/19/19 18:40 18:50 18:52 Temperature Pulse Rate 71 67 66 Respiratory Rate Blood Pressure 152/79 152/79 O2 Sat by Pulse 97 100 Oximetry Chest Pain MDM - MDM 83 female with chest pain chest pain 2 days feels like heaviness or someone standing on her chest. Patient is mildly anxious no shortness of breath currently no diaphoresis. Chest x-ray negative troponin negative EKG is unchanged Critical Care Time Critical Care Time: Yes Total Critical Care Time: 31 Disposition Clinical Impression: Chest pain Disposition: ADMITTED IP TO THIS HOSP Condition: Undetermined Is patient prescribed a controlled substance at d/c from ED?: No Referrals: Kristin Pollard MD [Primary Care Provider] - 1-2 days
[2019-04-19 18:45] LABS: INR 0.9 (<1.2); Partial Thromboplastin Time 22.5 sec (22.0-30.0)
[2019-04-19 18:47] LABS: Albumin 3.7 g/dL (3.5-5.0); Calcium 9.9 mg/dL (8.4-10.2); Magnesium 2.2 mg/dL (1.6-2.3); Potassium 4.2 mmol/L (3.5-5.1); Total Bilirubin 0.9 mg/dL (0.2-1.3); Total Protein 6.6 g/dL (6.3-8.2)
[2019-04-19] MEDS ORDERED: HEPARIN SODIUM,PORCINE 5,000 UNIT/ML 1 ML VIAL IV ONE (19:10)
[2019-04-19] MEDS ORDERED: ASPIRIN 81 MG PO STA (19:10)
[2019-04-19] MEDS ORDERED: HEPARIN SODIUM,PORCINE 5,000 UNIT/ML 1 ML VIAL IV PRN (19:10)
[2019-04-19] MEDS ORDERED: NITROGLYCERIN SL TABS 0.4 MG TAB SUBLINGUAL PRN (19:10)
[2019-04-19] MEDS ORDERED: HEPARIN SOD,PORK IN 0.45% NACL 25,000 UNIT in 0.45% NACL 1 250ML.BAG IV SCH (19:15)
[2019-04-19] MEDS: SODIUM CHLORIDE 0.9% 1,000 ML IV SCH (20:26)
[2019-04-19] MEDS ORDERED: CYCLOBENZAPRINE 10 MG TAB PO PRN (20:47)
[2019-04-19] MEDS ORDERED: ALBUTEROL NEBULIZED 2.5 MG/3 ML INHALATION PRN (20:47)
[2019-04-19] MEDS ORDERED: FUROSEMIDE 20 MG TAB PO PRN (20:47)
[2019-04-19] MEDS ORDERED: ATORVASTATIN 20 MG TAB PO SCH (21:00)
[2019-04-19] MEDS ORDERED: LEVOTHYROXINE 25 MCG TAB PO SCH (21:00)
[2019-04-19] MEDS: LORazepam 1 MG TAB PO SCH (21:53)
[2019-04-19] MEDS: FAMOTIDINE 20 MG TAB PO SCH (21:54)
[2019-04-19] MEDS: GABAPENTIN 300 MG CAP PO SCH (23:07)
[2019-04-19] MEDS: HYDROcodone/APAP 10-325MG 1 EACH TAB PO SCH (23:07)
[2019-04-20 05:45] LABS: Mean Platelet Volume 7.7; Platelet Count 265 k/uL (150-450)
[2019-04-20 05:54] LABS: Cholesterol 120 mg/dL (<200); HDL Cholesterol 34 mg/dL (40-60); LDL Cholesterol,Calculated 72 mg/dL (0-99); Triglycerides 71 mg/dL (<150)
[2019-04-20] MEDS: SODIUM CHLORIDE 0.9% 1,000 ML IV SCH ×2 (06:00→11:50)
[2019-04-20] MEDS ORDERED: LEVOTHYROXINE 100 MCG TAB PO SCH (06:30)
[2019-04-20 08:32] VITALS: RESP 16
[2019-04-20] MEDS: LORazepam 1 MG TAB PO SCH (08:46)
[2019-04-20] MEDS: HYDROcodone/APAP 10-325MG 1 EACH TAB PO SCH (08:46)
[2019-04-20] MEDS: GABAPENTIN 300 MG CAP PO SCH (08:46)
[2019-04-20] MEDS: FAMOTIDINE 20 MG TAB PO SCH (08:46)
[2019-04-20] MEDS ORDERED: MONTELUKAST 10 MG TAB PO SCH (09:00)
[2019-04-20] MEDS ORDERED: METOPROLOL SUCCINATE (ER) 25 MG TAB.ER.24H PO SCH (09:00)
[2019-04-20] MEDS ORDERED: LOSARTAN 50 MG TAB PO SCH (09:00)
[2019-04-20] MEDS ORDERED: ASPIRIN 81 MG PO SCH (09:00)
[2019-04-20] MEDS ORDERED: HYOSCYAMINE SULFATE 0.125 MG TAB PO SCH (09:00)
[2019-04-20] MEDS ORDERED: DULoxetine HCL 60 MG CAPSULE.DR PO SCH (09:00)
[2019-04-20] MEDS ORDERED: ASPIRIN 325 MG TAB PO SCH (09:00)
--- NOTE | 2019-04-20 09:40 | P.CRDCN ---
History of Present Illness History of present illness: This is a pleasant 83-year-old female past medical history significant for coronary artery disease status post stent placement approximately 6 years ago per the patient exact details unavailable, hypertension, dyslipidemia and rheumatoid arthritis. She follows with Dr. Gupta for cardiology. We have been asked to see the patient in consultation secondary to chest pain. She states this first started 2 days ago. She has been undergoing outpatient treatment for urinary tract infection per her primary care physician. She went to the office 2 days ago because her symptoms were worsening and her antibiotics were changed. She was placed on Keflex. She took her first dose of Keflex and about 30 minutes after she started feeling a discomfort in the midsternal region. This discomfort was worse with deep inspiration, cough or sneeze. She denies associated shortness of breath, dizziness, palpitations, nausea, vomiting or diaphoresis. Her PCP and rope cutter advised her to come to the hospital for further evaluation. She stayed home for the first day to see if her symptoms improved. When she woke up yesterday with ongoing chest discomfort with deep inspiration she came to the hospital for evaluation. She is seen and examined resting comfortably in bed in no acute distress. She continues to have discomfort in the chest. She states when she sneezed this morning she had significant pain. There is no radiation to the arm, back, neck or jaw. EKG reveals sinus mechanism with PACs. No acute ST or T wave abnormalities noted. Chest x-ray reveals trace pleural effusions and new pulmonary vascular congestion. Laboratory data reviewed, CBC unremarkable, d-dimer 0.53, sodium 139, potassium 4.2, creatinine 0.99, magnesium 2.2, cardiac enzymes negative 3, proBNP 490, LDL 72. Current daily cardiac medications include aspirin 81 mg daily, atorvastatin 20 mg daily, Toprol 25 mg daily, Lasix 20 mg daily as needed and losartan 50 mg daily. At the time of my exam: CONSTITUTIONAL: Denies fever. Denies chills. EYES: Denies blurred vision. Denies vision changes. Denies eye pain. EARS, NOSE, MOUTH & THROAT: Denies headache. Denies sore throat. Denies ear pain. CARDIOVASCULAR: Complains of pleuritic chest pain. Denies shortness of breath. Denies orthopnea. Denies PND. Denies palpitations. RESPIRATORY: Denies cough. GASTROINTESTINAL: Denies abdominal pain. Denies diarrhea. Denies constipation. Denies nausea. Denies vomiting. MUSCULOSKELETAL: Denies myalgias. INTEGUMENTARY: Denies pruitis. Denies rash. NEUROLOGIC: Denies numbness. Denies tingling. Denies weakness. PSYCHIATRIC: Denies anxiety. Denies depression. ENDOCRINE: Denies fatigue. Denies weight change. Denies polydipsia. Denies polyurina. GENITOURINARY: Denies burning, hematuria or urgency with micturation. HEMATOLOGIC: Denies history of anemia. Denies bleeding. Blood pressure 165/70 heart rate 60 afebrile maintaining oxygen saturation on nasal cannula GENERAL: This is a 83-year-old female in no apparent distress at the time of my examination. Morbidly obese. HEENT: Head is atraumatic, normocephalic. Pupils are equal, round. Sclerae anicteric. Conjunctivae are clear. Mucous membranes of the mouth are moist. Neck is supple. There is no jugular venous distention. No carotid bruit is heard. LUNGS: Clear to auscultation no wheezes, rales or rhonchi. No chest wall tenderness is noted on palpation or with deep breathing. Diminished bilaterally. HEART: Regular rate and rhythm with systolic ejection murmur at the left sternal border, no rubs or gallops. S1 and S2 heard. ABDOMEN: Soft, nontender. Bowel sounds are heard. No organomegaly noted. EXTREMITIES: No evidence of peripheral edema and no calf tenderness noted. VASCULAR: Radial and dorsalis pedis pulses palpated, no evidence of clubbing. NEUROLOGIC: Patient is awake, alert and oriented x3. ASSESSMENT Chest pain, pleuritic. Atypical for angina. An acute coronary event has been ruled out. History of underlying coronary artery disease s/p PCI Hypertension Dyslipidemia History of rheumatoid arthritis PLAN Pt had recent stress test with her rope cutter in the spring, we will request that record for review. Obtain 2D echocardiogram and doppler study to assess cardiac structure and function. Symptoms likely related to inflammation or musckuloskeletal strain. Follow up with Dr. Gupta upon discharge. Thank you kindly for this consultation. Nurse Practitioner note has been reviewed, I agree with a documented findings and plan of care. Patient was seen and examined. Past Medical History Past Medical History: Asthma, Fibromyalgia, GERD/Reflux, Hyperlipidemia, Hypertension, Rheumatoid Arthritis (RA), Thyroid Disorder History of Any Multi-Drug Resistant Organisms: None Reported Past Surgical History: Appendectomy, Bariatric Surgery, Cholecystectomy, Heart Catheterization With Stent, Hysterectomy, Orthopedic Surgery Additional Past Surgical History / Comment(s): lap band 05/06/2004, left shoulder replaced, Right ear growth, cardiac Stent Past Anesthesia/Blood Transfusion Reactions: No Reported Reaction Date of Last Stent Placement:: 03/19/2010 Past Psychological History: Depression Smoking Status: Former smoker Past Alcohol Use History: Rare Past Drug Use History: None Reported - Past Family History Mother Family Medical History: Congestive Heart Failure (CHF) Medications and Allergies Home Medications Medication Instructions Recorded Confirmed Type Aspirin [Adult Low Dose Aspirin EC] 81 mg PO DAILY 03/03/16 04/19/19 History Atorvastatin [Lipitor] 20 mg PO HS 03/03/16 04/19/19 History Cholecalciferol [Vitamin D3 (25 2,000 unit PO DAILY 03/03/16 04/19/19 History Mcg = 1000 Iu)] Hyoscyamine Sulfate [Levsin] 0.125 mg PO DAILY 03/03/16 04/19/19 History Multivit-Min36/Iron/Folic Acid 1 tab PO DAILY 03/03/16 04/19/19 History [Geritol Complete Tablet] Famotidine [Pepcid] 20 mg PO BID 03/12/18 04/19/19 History Montelukast [Singulair] 10 mg PO DAILY 03/12/18 04/19/19 History Albuterol Nebulized [Ventolin 2.5 mg INHALATION RT-QID PRN 01/05/19 04/19/19 History Nebulized] DULoxetine HCL [Cymbalta] 60 mg PO DAILY 01/05/19 04/19/19 History Fluticasone Nasal [place] [Flonase 1 spray EA NOSTRIL HS 01/05/19 04/19/19 History Nasal [place]] Fluticasone/Salmeterol [Advair 1 puff INHALATION RT-HS 01/05/19 04/19/19 History 250-50 Diskus] Furosemide [Lasix] 20 mg PO DAILY PRN 01/05/19 04/19/19 History HYDROcodone/APAP 10-325MG [[place] 1 tab PO TID 01/05/19 04/19/19 History 10-325] LORazepam [Ativan] 1 mg PO BID 01/05/19 04/19/19 History Levothyroxine Sodium [Synthroid] 25 mcg PO HS 01/05/19 04/19/19 History Levothyroxine Sodium [Synthroid] 200 mcg PO DAILY 01/05/19 04/19/19 History [place]-3 Fatty Acids [[place]-3] 1,000 mg PO DAILY 01/05/19 04/19/19 History diphenhydrAMINE HCL [Benadryl] 25 mg PO HS 01/05/19 04/19/19 History Cyclobenzaprine [Flexeril] 10 mg PO HS PRN 04/19/19 04/19/19 History Gabapentin [Neurontin] 600 mg PO TID 04/19/19 04/19/19 History Losartan [Cozaar] 50 mg PO DAILY 04/19/19 04/19/19 History Metoprolol Succinate [Toprol XL] 25 mg PO DAILY 04/19/19 04/19/19 History Allergies Allergy/AdvReac Type Severity Reaction Status Date / Time grass pollen Allergy Unknown Verified 04/19/19 18:28 Sulfa (Sulfonamide Allergy Rash/Hives Verified 04/19/19 18:28 Antibiotics) cephalexin [From Keflex] AdvReac Chest Pain Verified 04/19/19 18:28 dust AdvReac Unknown Uncoded 04/19/19 17:51 Physical Exam Vitals: Vital Signs Temp Pulse Pulse Resp BP BP Pulse Ox 04/20/19 07:52 97.9 F 60 20 165/70 97 04/20/19 07:31 96 04/20/19 03:58 98.0 F 69 15 151/78 96 04/20/19 03:40 61 16 04/19/19 23:43 98.2 F 69 16 126/54 97 04/19/19 23:42 82 15 04/19/19 20:15 97 04/19/19 20:00 97.9 F 82 15 117/54 97 04/19/19 19:32 79 20 126/84 04/19/19 18:52 66 04/19/19 18:50 67 152/79 100 04/19/19 18:40 71 152/79 97 04/19/19 18:38 70 04/19/19 18:30 71 145/94 97 04/19/19 18:20 145/94 04/19/19 18:10 73 79 L 04/19/19 18:08 71 98 04/19/19 17:46 97.9 F 81 20 180/74 98 Intake and Output 04/19/19 04/20/19 04/20/19 22:59 06:59 14:59 Intake Total 400 77.5 Balance 400 77.5 Intake: Intake, IV Titration 77.5 Amount Heparin Sod,Pork in 0.45% 77.5 NaCl 25,000 unit In 0.45 % NaCl 1 250ml.bag @ 8. 646 UNITS/KG/HR 10 mls/hr IV .Q24H [facility] Rx#: [id number] Oral 400 Other: # Voids 1 1 Weight 115.666 kg Results 04/20/19 05:32 04/19/19 18:00 Cardiac Enzymes 04/19/19 04/19/19 04/20/19 Range/Units 18:00 18:00 00:21 AST 29 (14-36) U/L Troponin I <0.012 <0.012 (0.000-0.034) ng/mL 04/20/19 Range/Units 05:32 AST (14-36) U/L Troponin I <0.012 (0.000-0.034) ng/mL Coagulation 04/19/19 04/20/19 Range/Units 18:00 02:24 PT 10.0 (9.0-12.0) sec APTT 22.5 34.7 H (22.0-30.0) sec Lipids 04/20/19 Range/Units 05:32 Triglycerides 71 (<150) mg/dL Cholesterol 120 (<200) mg/dL HDL Cholesterol 34 L (40-60) mg/dL CBC 04/19/19 04/20/19 Range/Units 18:00 05:32 WBC 8.2 (3.8-10.6) k/uL RBC 4.18 (3.80-5.40) m/uL Hgb 13.4 (11.4-16.0) gm/dL Hct 39.2 (34.0-46.0) % Plt Count 287 265 (150-450) k/uL Comprehensive Metabolic Panel 04/19/19 Range/Units 18:00 Sodium 139 (137-145) mmol/L Potassium 4.2 (3.5-5.1) mmol/L Chloride 103 (98-107) mmol/L Carbon Dioxide 28 (22-30) mmol/L BUN 29 H (7-17) mg/dL Creatinine 0.99 (0.52-1.04) mg/dL Glucose 106 H (74-99) mg/dL Calcium 9.9 (8.4-10.2) mg/dL AST 29 (14-36) U/L ALT 28 (9-52) U/L Alkaline Phosphatase 85 (38-126) U/L Total Protein 6.6 (6.3-8.2) g/dL Albumin 3.7 (3.5-5.0) g/dL Current Medications Generic Name Dose Route Start Last Admin Trade Name Freq PRN Reason Stop Dose Admin Hydrocodone Bitart/Acetaminophen 1 each 04/19/19 22:00 04/19/19 23:07 [place] 10 PO Not Given TID [facility] Albuterol Sulfate 2.5 mg 04/19/19 20:47 Ventolin Nebulized INHALATION RT-QID PRN Shortness Of Breath Aspirin 81 mg 04/20/19 09:00 Aspirin PO DAILY [facility] Atorvastatin Calcium 20 mg 04/19/19 21:00 04/19/19 21:53 Lipitor PO 20 mg HS [facility] Administration Budesonide/Formoterol Fumarate 2 puff 04/20/19 20:00 Symbicort 80-4.5 Mcg Inhaler INHALATION RT-BID [facility] Cyclobenzaprine HCl 10 mg 04/19/19 20:47 Flexeril PO HS PRN Pain Duloxetine HCl 60 mg 04/20/19 09:00 Cymbalta PO DAILY [facility] Famotidine 20 mg 04/19/19 21:00 04/19/19 21:54 Pepcid PO 20 mg BID [facility] Administration Furosemide 20 mg 04/19/19 20:47 Lasix PO DAILY PRN Edema Gabapentin 600 mg 04/19/19 22:00 04/19/19 23:07 Neurontin PO Not Given TID [facility] Heparin Sodium (Porcine) 0 unit 04/19/19 19:10 04/20/19 03:15 Heparin IV 4,000 unit Q6HR PRN Administration Low PTT Protocol Hyoscyamine 0.125 mg 04/20/19 09:00 Levsin PO DAILY [facility] Sodium Chloride 1,000 mls @ 100 mls/hr 04/19/19 19:15 04/20/19 06:00 Saline 0.9% IV Not Given .Q10H [facility] Levothyroxine Sodium 200 mcg 04/20/19 06:30 04/20/19 06:16 Synthroid PO 200 mcg DAILY@0630 [facility] Administration Levothyroxine Sodium 25 mcg 04/19/19 21:00 04/19/19 21:53 Synthroid PO 25 mcg HS [facility] Administration Lorazepam 1 mg 04/19/19 21:00 04/19/19 21:53 Ativan PO 1 mg BID [facility] Administration Losartan Potassium 50 mg 04/20/19 09:00 Cozaar PO DAILY [facility] Metoprolol Succinate 25 mg 04/20/19 09:00 Toprol Xl PO DAILY [facility] Montelukast Sodium 10 mg 04/20/19 09:00 Singulair PO DAILY [facility] Nitroglycerin 0.4 mg 04/19/19 19:10 Nitrostat SUBLINGUAL Q5M PRN Chest Pain Intake and Output 04/19/19 04/20/19 04/20/19 22:59 06:59 14:59 Intake Total 400 77.5 Balance 400 77.5 Intake: Intake, IV Titration 77.5 Amount Heparin Sod,Pork in 0.45% 77.5 NaCl 25,000 unit In 0.45 % NaCl 1 250ml.bag @ 8. 646 UNITS/KG/HR 10 mls/hr IV .Q24H [facility] Rx#: [id number] Oral 400 Other: # Voids 1 1 Weight 115.666 kg 04/20/19 05:32 04/19/19 18:00
--- NOTE | 2019-04-20 10:47 | ECHOF ---
Referral Reason:cp, sob MEASUREMENTS -------- HEIGHT: 154.9 cm WEIGHT: 115.7 kg BP: 165/70 RVIDd: 3.3 cm (< 3.3) IVSd: 1.2 cm (0.6 - 1.1) LVIDd: 3.6 cm (3.9 - 5.3) LVPWd: 1.2 cm (0.6 - 1.1) IVSs: 1.8 cm LVIDs: 2.6 cm LVPWs: 1.8 cm LA Diam: 3.5 cm (2.7 - 3.8) LAESV Index (A-L): 12.17 ml/m Ao Diam: 2.9 cm (2.0 - 3.7) AV Cusp: 2.0 cm (1.5 - 2.6) MV EXCURSION: 8.200 mm (> 18.000) MV EF SLOPE: 61 mm/s (70 - 150) EPSS: 0.3 cm MV E Carl: 0.76 m/s MV DecT: 220 ms MV A Carl: 0.89 m/s MV E/A Ratio: 0.86 RAP: 5.00 mmHg RVSP: 41.53 mmHg TAPSE: 18.74 mm FINDINGS -------- Sinus rhythm. This was a technically adequate study. The left ventricular size is normal. There is borderline concentric left ventricular hypertrophy. Overall left ventricular systolic function is normal with, an EF between 55 - 60 %. The right ventricle is mildly enlarged. Normal LA size by volume 22+/-6 ml/m2. The right atrial size is normal. The aortic valve is trileaflet, and appears structurally normal. No aortic stenosis or regurgitation. The mitral valve is normal. Mild tricuspid regurgitation present. There is mild pulmonary hypertension. The right ventricular systolic pressure, as measured by Doppler, is 41.53mmHg. The pulmonic valve was not well visualized. Trace/mild (physiologic) pulmonic regurgitation. The aortic root size is normal. IVC Not well visulized. There is no pericardial effusion. CONCLUSIONS -------- 1. Sinus rhythm. 2. This was a technically adequate study. 3. The left ventricular size is normal. 4. There is borderline concentric left ventricular hypertrophy. 5. Overall left ventricular systolic function is normal with, an EF between 55 - 60 %. 6. The right ventricle is mildly enlarged. 7. Normal LA size by volume 22+/-6 ml/m2. 8. The aortic valve is trileaflet, and appears structurally normal. No aortic stenosis or regurgitati on. 9. The mitral valve is normal. 10. Mild tricuspid regurgitation present. 11. There is mild pulmonary hypertension. 12. Trace/mild (physiologic) pulmonic regurgitation. 13. The aortic root size is normal. 14. IVC Not well visulized. 15. There is no pericardial effusion. PRODUCTION TECHNICIAN: Yumiko Gandhi RDCS
[2019-04-20 12:16] VITALS: BP 127/68; PULSE 75; TEMP 97.8
[2019-04-20] MEDS ORDERED: RX INFO: IV CONTRAST WAS GIVEN 1 EACH MISC MISCELLANE PRN (14:07)
--- NOTE | 2019-04-20 15:18 | CT ---
EXAMINATION TYPE: CT chest w con DATE OF EXAM: 04/20/2019 COMPARISON: 01/05/2019 HISTORY: Chest pain with shortness of breath. CT DLP: 747.2 mGycm, Automated exposure control for dose reduction was used. CONTRAST: Performed injected with 100 mL of Isovue 370. TECHNIQUE: Axial images were obtained at 5 mm thick sections. Reconstructed images are reviewed on [employer] computer in the coronal plane. FINDINGS: Portion of the thyroid visualized is normal. There is a small left pleural effusion. Small right pleural effusion with adjacent atelectasis is pre sent. No enlarged mediastinal or hilar adenopathy is evident. The ascending aorta diameter at the level o f the main pulmonary artery is 3.6 cm. The main pulmonary artery diameter at the bifurcation is 3.[address] sections are obtained through the upper abdomen. LAP Band is present. IMPRESSIONS: 1. Small bilateral pleural effusions. Some atelectasis is likely at the right lung base.
[2019-04-20] MEDS ORDERED: SYMBICORT 80-4.5 MCG INHALER INHALATION SCH (20:00)
--- NOTE | 2019-04-20 20:31 | P.HPIM ---
History of Present Illness H&P Date: 04/20/19 Chief Complaint: Chest pain History of presenting complaint: This is a very pleasant [address] Radha Pollard. Chronic stable medical conditions include asthma, fibromyalgia, GERD, hyperlipidemia, hypertension, rheumatoid arthritis, hypothyroid. Coronary artery disease with stent. In 2009. For 2 days has been having central sharp pain increasing with deep breath. Feels like a knife some shortness of breath. No fever no chills. No radiation. No fever no chills. No sputum production. Presented to rule out a cardiac cause. Review of systems: GEN.: None EYES: None HEENT: None NECK: None RESPIRATORY: As above CARDIOVASCULAR: As above GASTROINTESTINAL: None GENITOURINARY: None MUSCULOSKELETAL: Pain in joints LYMPHATICS: None HEMATOLOGICAL: None PSYCHIATRY: None NEUROLOGICAL: None Social history: Does smoke in the past. Alcohol rarely. Physical examination: VITAL SIGNS: 97.9, 81, 20, 1 4594, 98% room air GENERAL: BMI 48.2, sitting up not in distress. EYES: Pupils equal. Conjunctiva normal. HEENT: External appearance of nose and ears normal, oral cavity grossly normal. NECK: JVD not raised; masses not palpable. HEART: First and second heart sounds are normal; no edema. LUNGS: Respiratory rate normal; clear to auscultation. ABDOMEN: Soft, nontender, liver spleen not palpable, no masses palpable. PSYCH: Alert and oriented x3; mood and affect normal. NEUROLOGICAL: Cranial nerves grossly intact; no facial asymmetry, power and sensation grossly intact. LYMPHATICS: No lymph nodes palpable in the axilla and neck MUSCULOSKELETAL: Evidence of OA especially in the hands INVESTIGATIONS, reviewed in the clinical context: White count 8.2 hemoglobin 13.4 platelets 27 potassium 4.2 creatinine 0.99 line d-dimer 0.053 EKG tracing personally reviewed by me-normal sinus rhythm with PACs Chest x-ray film personally reviewed by me-possibly underpenetration ProBNP 419 Troponin I 3 negative Assessment: -Atypical chest pain in a patient known coronary artery disease -Asthma -Chronic outer margin -GERD -Hyperlipidemia -Essential hypertension -Rheumatoid arthritis -Hypothyroid -Coronary artery disease with stent in 2009 -Morbid obesity BMI 48.2 Plan: Cardiology was consulted. According to the notes patient had a recent stress test was negative. Did order 2-D echocardiogram. Usual patient's pain was very sharp symptoms are greatly improved. I did order a computed tomography scan scan of the chest with contrast Past Medical History Past Medical History: Asthma, Fibromyalgia, GERD/Reflux, Hyperlipidemia, Hypertension, Rheumatoid Arthritis (RA), Thyroid Disorder History of Any Multi-Drug Resistant Organisms: None Reported Past Surgical History: Appendectomy, Bariatric Surgery, Cholecystectomy, Heart Catheterization With Stent, Hysterectomy, Orthopedic Surgery Additional Past Surgical History / Comment(s): lap band 05/06/2004, left shoulder replaced, Right ear growth, cardiac Stent Past Anesthesia/Blood Transfusion Reactions: No Reported Reaction Date of Last Stent Placement:: 03/19/2010 Past Psychological History: Depression Smoking Status: Former smoker Past Alcohol Use History: Rare Past Drug Use History: None Reported - Past Family History Mother Family Medical History: Congestive Heart Failure (CHF) Medications and Allergies Home Medications Medication Instructions Recorded Confirmed Type Aspirin [Adult Low Dose Aspirin EC] 81 mg PO DAILY 03/03/16 04/19/19 History Atorvastatin [Lipitor] 20 mg PO HS 03/03/16 04/19/19 History Cholecalciferol [Vitamin D3 (25 2,000 unit PO DAILY 03/03/16 04/19/19 History Mcg = 1000 Iu)] Hyoscyamine Sulfate [Levsin] 0.125 mg PO DAILY 03/03/16 04/19/19 History Multivit-Min36/Iron/Folic Acid 1 tab PO DAILY 03/03/16 04/19/19 History [Geritol Complete Tablet] Famotidine [Pepcid] 20 mg PO BID 03/12/18 04/19/19 History Montelukast [Singulair] 10 mg PO DAILY 03/12/18 04/19/19 History Albuterol Nebulized [Ventolin 2.5 mg INHALATION RT-QID PRN 01/05/19 04/19/19 History Nebulized] DULoxetine HCL [Cymbalta] 60 mg PO DAILY 01/05/19 04/19/19 History Fluticasone Nasal [place] [Flonase 1 spray EA NOSTRIL HS 01/05/19 04/19/19 History Nasal [place]] Fluticasone/Salmeterol [Advair 1 puff INHALATION RT-HS 01/05/19 04/19/19 History 250-50 Diskus] Furosemide [Lasix] 20 mg PO DAILY PRN 01/05/19 04/19/19 History HYDROcodone/APAP 10-325MG [[place] 1 tab PO TID 01/05/19 04/19/19 History 10-325] LORazepam [Ativan] 1 mg PO BID 01/05/19 04/19/19 History Levothyroxine Sodium [Synthroid] 25 mcg PO HS 01/05/19 04/19/19 History Levothyroxine Sodium [Synthroid] 200 mcg PO DAILY 01/05/19 04/19/19 History [place]-3 Fatty Acids [[place]-3] 1,000 mg PO DAILY 01/05/19 04/19/19 History Cyclobenzaprine [Flexeril] 10 mg PO HS PRN 04/19/19 04/19/19 History Gabapentin [Neurontin] 600 mg PO TID 04/19/19 04/19/19 History Losartan [Cozaar] 50 mg PO DAILY 04/19/19 04/19/19 History Metoprolol Succinate [Toprol XL] 25 mg PO DAILY 04/19/19 04/19/19 History Melatonin 2 mg PO HS #1 tablet 04/20/19 Rx Allergies Allergy/AdvReac Type Severity Reaction Status Date / Time grass pollen Allergy Unknown Verified 04/19/19 18:28 Sulfa (Sulfonamide Allergy Rash/Hives Verified 04/19/19 18:28 Antibiotics) cephalexin [From Keflex] AdvReac Chest Pain Verified 04/19/19 18:28 dust AdvReac Unknown Uncoded 04/19/19 17:51 Physical Exam Vitals: Vital Signs Temp Pulse Pulse Resp BP BP Pulse Ox 04/20/19 08:00 16 04/20/19 07:52 97.9 F 60 20 165/70 97 04/20/19 07:31 96 04/20/19 03:58 98.0 F 69 15 151/78 96 04/20/19 03:40 61 16 04/19/19 23:43 98.2 F 69 16 126/54 97 04/19/19 23:42 82 15 04/19/19 20:15 97 04/19/19 20:00 97.9 F 82 15 117/54 97 04/19/19 19:32 79 20 126/84 04/19/19 18:52 66 04/19/19 18:50 67 152/79 100 04/19/19 18:40 71 152/79 97 04/19/19 18:38 70 04/19/19 18:30 71 145/94 97 04/19/19 18:20 145/94 04/19/19 18:10 73 79 L 04/19/19 18:08 71 98 04/19/19 17:46 97.9 F 81 20 180/74 98 Intake and Output 04/19/19 04/20/19 04/20/19 22:59 06:59 14:59 Intake Total 400 77.5 Balance 400 77.5 Intake: Intake, IV Titration 77.5 Amount Heparin Sod,Pork in 0.45% 77.5 NaCl 25,000 unit In 0.45 % NaCl 1 250ml.bag @ 8. 646 UNITS/KG/HR 10 mls/hr IV .Q24H [facility] Rx#: [id number] Oral 400 Other: Voiding Method Toilet # Voids 1 1 Weight 115.666 kg Results CBC & Chem 7: 04/20/19 05:32 04/19/19 18:00 Labs: Abnormal Lab Results - Last 24 Hours (Table) 04/19/19 04/19/19 04/20/19 Range/Units 18:00 18:00 02:24 Lymphocytes # 0.8 L (1.0-4.8) k/uL APTT 34.7 H (22.0-30.0) sec BUN 29 H (7-17) mg/dL Glucose 106 H (74-99) mg/dL HDL Cholesterol (40-60) mg/dL 04/20/19 Range/Units 05:32 Lymphocytes # (1.0-4.8) k/uL APTT (22.0-30.0) sec BUN (7-17) mg/dL Glucose (74-99) mg/dL HDL Cholesterol 34 L (40-60) mg/dL Thrombosis Risk Factor Assmnt - Choose All That Apply Any of the Below Risk Factors Present?: Yes Each Factor Represents 1 point: Age 41-60 years, Heart failure (<1month), Obesity (BMI >25), Swollen legs (current) Thrombosis Risk Factor Assessment Total Risk Factor Score: 4 Thrombosis Risk Factor Assessment Level: Moderate Risk
--- NOTE | 2019-04-20 20:35 | P.DS ---
Providers Date of admission: 04/19/19 19:10 Expected date of discharge: 04/20/19 Attending physician: Ac Edwards Consults: 04/19/19 19:10 Consult Physician Urgent Consulting Provider: Efren Dean Consult Reason/Comments: cp Do you want consulting provider notified?: Yes Primary care physician: Kristin Pollard [facility] Course: Chief Complaint: Sharp Chest pain Hospital course: This is a very pleasant 83-year-old patient of Dr. Radha Pollard. Chronic stable medical conditions include asthma, fibromyalgia, GERD, hyperlipidemia, hypertension, rheumatoid arthritis, hypothyroid. Coronary artery disease with stent. In 2009. For 2 days has been having central sharp pain increasing with deep breath. Feels like a knife some shortness of breath. No fever no chills. No radiation. No fever no chills. No sputum production. Presented to rule out a cardiac cause. Patient clinical symptomatology was not compatible with cardiac sounding more l felicitas musculoskeletal. Seen by [facility]. They did a 2-D echocardiogram. Patient is reported of her recent stressors that was negative. I did do a computed tomography scan of the chest with contrast that came back to be negative. Patient's back to baseline before discharge. Consultation: Dr. Dean from cardiology Physical examination: VITAL SIGNS: 97.9, 81, 20, 127/68, 95% room air GENERAL: BMI 48.2, sitting upon a chair, comfortable EYES: Pupils equal. Conjunctiva normal. HEENT: External appearance of nose and ears normal, oral cavity grossly normal. NECK: JVD not raised; masses not palpable. HEART: First and second heart sounds are normal; no edema. LUNGS: Respiratory rate normal; clear to auscultation. ABDOMEN: Soft, nontender, liver spleen not palpable, no masses palpable. PSYCH: Alert and oriented x3; mood and affect MUSCULOSKELETAL: Evidence of OA especially in the hands INVESTIGATIONS, reviewed in the clinical context: CT of the chest with contrast negative 2-D echo shows EF of 55-60% White count 8.2 hemoglobin 13.4 platelets 27 potassium 4.2 creatinine 0.99 line d-dimer 0.053 EKG tracing personally reviewed by me-normal sinus rhythm with PACs Chest x-ray film personally reviewed by me-possibly underpenetration ProBNP 419 Troponin I 3 negative Discharge diagnosis: -Anterior chest pain in a patient known coronary artery disease, likely mus culoskeletal -Asthma -Chronic outer margin -GERD -Hyperlipidemia -Essential hypertension -Rheumatoid arthritis -Hypothyroid -Coronary artery disease with stent in 2009 -Morbid obesity BMI 48.2 Disposition: Home Patient Condition at Discharge: Stable Plan - Discharge Summary New Discharge Prescriptions: New Melatonin 2 mg PO HS #1 tablet Continue Cholecalciferol [Vitamin D3 (25 Mcg = 1000 Iu)] 2,000 unit PO DAILY Hyoscyamine Sulfate [Levsin] 0.125 mg PO DAILY Atorvastatin [Lipitor] 20 mg PO HS Multivit-Min36/Iron/Folic Acid [Geritol Complete Tablet] 1 tab PO DAILY Aspirin [Adult Low Dose Aspirin EC] 81 mg PO DAILY Famotidine [Pepcid] 20 mg PO BID Montelukast [Singulair] 10 mg PO DAILY [place]-3 Fatty Acids [[place]-3] 1,000 mg PO DAILY Levothyroxine Sodium [Synthroid] 25 mcg PO HS HYDROcodone/APAP 10-325MG [[place] 10-325] 1 tab PO TID Furosemide [Lasix] 20 mg PO DAILY PRN PRN Reason: Edema Fluticasone/Salmeterol [Advair 250-50 Diskus] 1 puff INHALATION RT-HS Fluticasone Nasal [place] [Flonase Nasal [place]] 1 spray EA NOSTRIL HS Albuterol Nebulized [Ventolin Nebulized] 2.5 mg INHALATION RT-QID PRN PRN Reason: Shortness Of Breath LORazepam [Ativan] 1 mg PO BID Levothyroxine Sodium [Synthroid] 200 mcg PO DAILY DULoxetine HCL [Cymbalta] 60 mg PO DAILY Metoprolol Succinate [Toprol XL] 25 mg PO DAILY Gabapentin [Neurontin] 600 mg PO TID Losartan [Cozaar] 50 mg PO DAILY Cyclobenzaprine [Flexeril] 10 mg PO HS PRN PRN Reason: Pain Discontinued diphenhydrAMINE HCL [Benadryl] 25 mg PO HS Discharge Medication List Aspirin [Adult Low Dose Aspirin EC] 81 mg PO DAILY 03/03/16 [History] Atorvastatin [Lipitor] 20 mg PO HS 03/03/16 [History] Cholecalciferol [Vitamin D3 (25 Mcg = 1000 Iu)] 2,000 unit PO DAILY 03/03/16 [History] Hyoscyamine Sulfate [Levsin] 0.125 mg PO DAILY 03/03/16 [History] Multivit-Min36/Iron/Folic Acid [Geritol Complete Tablet] 1 tab PO DAILY 03/03/16 [History] Famotidine [Pepcid] 20 mg PO BID 03/12/18 [History] Montelukast [Singulair] 10 mg PO DAILY 03/12/18 [History] Albuterol Nebulized [Ventolin Nebulized] 2.5 mg INHALATION RT-QID PRN 01/05/19 [History] DULoxetine HCL [Cymbalta] 60 mg PO DAILY 01/05/19 [History] Fluticasone Nasal [place] [Flonase Nasal [place]] 1 spray EA NOSTRIL HS 01/05/19 [History] Fluticasone/Salmeterol [Advair 250-50 Diskus] 1 puff INHALATION RT-HS 01/05/19 [History] Furosemide [Lasix] 20 mg PO DAILY PRN 01/05/19 [History] HYDROcodone/APAP 10-325MG [[place] 10-325] 1 tab PO TID 01/05/19 [History] LORazepam [Ativan] 1 mg PO BID 01/05/19 [History] Levothyroxine Sodium [Synthroid] 25 mcg PO HS 01/05/19 [History] Levothyroxine Sodium [Synthroid] 200 mcg PO DAILY 01/05/19 [History] [place]-3 Fatty Acids [[place]-3] 1,000 mg PO DAILY 01/05/19 [History] Cyclobenzaprine [Flexeril] 10 mg PO HS PRN 04/19/19 [History] Gabapentin [Neurontin] 600 mg PO TID 04/19/19 [History] Losartan [Cozaar] 50 mg PO DAILY 04/19/19 [History] Metoprolol Succinate [Toprol XL] 25 mg PO DAILY 04/19/19 [History] Melatonin 2 mg PO HS #1 tablet 04/20/19 [Rx] Follow up Appointment(s)/Referral(s): dr colton [Other] - 1 Week Kristin Pollard MD [Primary Care Provider] - 1-2 days Discharge Disposition: HOME SELF-CARE
[2019-04-21] MEDS ORDERED: FAMOTIDINE 20 MG TAB PO SCH (09:00)
== END 2019-04-20 16:00 | disposition home or self-care (01) ==
LOC: EC 17:41 → 1SOBS 19:10
PROVIDERS: ADMIT Hospitalist; ATTEND Hospitalist
DX: R07.89 Other chest pain (principal); R00.2 Palpitations; R07.81 Pleurodynia; M79.7 Fibromyalgia; J45.909 Unspecified asthma, uncomplicated; K21.9 Gastro-esophageal reflux disease without esophagitis; E78.5 Hyperlipidemia, unspecified; I11.9 Hypertensive heart disease without heart failure; I50.9 Heart failure, unspecified; M06.9 Rheumatoid arthritis, unspecified; E03.9 Hypothyroidism, unspecified; I25.10 Atherosclerotic heart disease of native coronary artery without angina pectoris; F32.9 Major depressive disorder, single episode, unspecified; F41.9 Anxiety disorder, unspecified; E78.00 Pure hypercholesterolemia, unspecified; Z95.5 Presence of coronary angioplasty implant and graft; E66.01 Morbid (severe) obesity due to excess calories; Z68.42 Body mass index [BMI] 45.0-49.9, adult; M19.042 Primary osteoarthritis, left hand; M19.041 Primary osteoarthritis, right hand; Z87.891 Personal history of nicotine dependence; Z79.82 Long term (current) use of aspirin; Z79.890 Hormone replacement therapy; Z79.899 Other long term (current) drug therapy; Z79.891 Long term (current) use of opiate analgesic; Z90.49 Acquired absence of other specified parts of digestive tract; Z98.84 Bariatric surgery status; Z88.1 Allergy status to other antibiotic agents; Z88.2 Allergy status to sulfonamides; Z91.048 Other nonmedicinal substance allergy status; Z82.49 Family history of ischemic heart disease and other diseases of the circulatory system
CPT/HCPCS: 96366 ×2; 96376 ×2; 96365; 99291; 36415; 94640; 93306; 85379; 83880; 80061; 80053; 82550; 83690; 83735; 84484 ×2; 85025; 85049; 85610; 85730 ×2; 71046; 71260; G0378 ×2; J1644 ×3; Q9967; 93005

== ENCOUNTER 2020-10-16 16:18 | Emergency (ER) | payer MEDICARE, OTHER ==
--- NOTE | 2020-10-16 19:29 | ED ---
General Adult HPI - General Chief complaint: Shortness of Breath Stated complaint: Sent by PCP SOB Time Seen by Provider: 10/16/20 18:41 Source: patient, RN notes reviewed, old records reviewed Mode of arrival: wheelchair Limitations: no limitations - History of Present Illness Initial comments: 84-year-old female presenting for evaluation of fatigue, dyspnea. Symptoms have been ongoing for approximately 8 months. She was seen by her primary care ph ysician within the last week and was told that her hemoglobin was low. She denies rectal bleeding. Denies melena. She denies chest pain. She states she did have an outpatient heart catheterization approximately 3 weeks ago at [facility] which she reported as negative. No fever. No cough. No abdominal pain nausea vomiting. - Related Data Home Medications Medication Instructions Recorded Confirmed Aspirin [Adult Low Dose Aspirin EC] 81 mg PO DAILY 03/03/16 04/19/19 Atorvastatin [Lipitor] 20 mg PO HS 03/03/16 04/19/19 Cholecalciferol [Vitamin D3 (25 2,000 unit PO DAILY 03/03/16 04/19/19 Mcg = 1000 Iu)] Hyoscyamine Sulfate [Levsin] 0.125 mg PO DAILY 03/03/16 04/19/19 Multivit-Min36/Iron/Folic Acid 1 tab PO DAILY 03/03/16 04/19/19 [Geritol Complete Tablet] Famotidine [Pepcid] 20 mg PO BID 03/12/18 04/19/19 Montelukast [Singulair] 10 mg PO DAILY 03/12/18 04/19/19 Albuterol Nebulized [Ventolin 2.5 mg INHALATION RT-QID PRN 01/05/19 04/19/19 Nebulized] DULoxetine HCL [Cymbalta] 60 mg PO DAILY 01/05/19 04/19/19 Fluticasone Nasal [place] [Flonase 1 spray EA NOSTRIL HS 01/05/19 04/19/19 Nasal [place]] Fluticasone/Salmeterol [Advair 1 puff INHALATION RT-HS 01/05/19 04/19/19 250-50 Diskus] Furosemide [Lasix] 20 mg PO DAILY PRN 01/05/19 04/19/19 HYDROcodone/APAP 10-325MG [[place] 1 tab PO TID 01/05/19 04/19/19 10-325] LORazepam [Ativan] 1 mg PO BID 01/05/19 04/19/19 Levothyroxine Sodium [Synthroid] 25 mcg PO HS 01/05/19 04/19/19 Levothyroxine Sodium [Synthroid] 200 mcg PO DAILY 01/05/19 04/19/19 [place]-3 Fatty Acids [Hope-3] 1,000 mg PO DAILY 01/05/19 04/19/19 Cyclobenzaprine [Flexeril] 10 mg PO HS PRN 04/19/19 04/19/19 Gabapentin [Neurontin] 600 mg PO TID 04/19/19 04/19/19 Losartan [Cozaar] 50 mg PO DAILY 04/19/19 04/19/19 Metoprolol Succinate [Toprol XL] 25 mg PO DAILY 04/19/19 04/19/19 Previous Rx's Medication Instructions Recorded Melatonin 2 mg PO HS #1 tablet 04/20/19 Nitrofurantoin Monohyd/M-Cryst 100 mg PO Q12HR #20 cap 10/16/20 [Macrobid] Allergies Allergy/AdvReac Type Severity Reaction Status Date / Time grass pollen Allergy Unknown Verified 10/16/20 18:07 Sulfa (Sulfonamide Allergy Rash/Hives Verified 10/16/20 18:07 Antibiotics) cephalexin [From Keflex] AdvReac Chest Pain Verified 10/16/20 18:07 dust AdvReac Unknown Uncoded 10/16/20 18:07 Review of Systems ROS Statement: Those systems with pertinent positive or pertinent negative responses have been documented in the HPI. ROS Other: All systems not noted in ROS Statement are negative. Past Medical History Past Medical History: Asthma, Fibromyalgia, GERD/Reflux, Hyperlipidemia, Hypertension, Rheumatoid Arthritis (RA), Thyroid Disorder Additional Past Medical History / Comment(s): anemia History of Any Multi-Drug Resistant Organisms: None Reported Past Surgical History: Appendectomy, Bariatric Surgery, Cholecystectomy, Heart Catheterization With Stent, Hysterectomy, Orthopedic Surgery Additional Past Surgical History / Comment(s): lap band 05/06/2004, left shoulder replaced, Right ear growth, cardiac Stent Past Anesthesia/Blood Transfusion Reactions: No Reported Reaction Date of Last Stent Placement:: 03/19/2010 Past Psychological History: Depression Smoking Status: Former smoker Past Alcohol Use History: Rare Past Drug Use History: None Reported - Past Family History Mother Family Medical History: Congestive Heart Failure (CHF) General Exam Limitations: no limitations General appearance: alert, in no apparent distress Head exam: Present: atraumatic, normocephalic Eye exam: Present: normal appearance, PERRL ENT exam: Present: normal exam Neck exam: Present: normal inspection. Absent: tenderness, meningismus Respiratory exam: Present: normal lung sounds bilaterally. Absent: respiratory distress, wheezes Cardiovascular Exam: Present: regular rate, normal rhythm GI/Abdominal exam: Present: soft. Absent: distended, tenderness, guarding, rebound Rectal exam: Present: normal inspection. Absent: black stool, bloody stool Extremities exam: Present: normal inspection, normal capillary refill. Absent: pedal edema Neurological exam: Present: alert, oriented X3, CN II-XII intact. Absent: motor sensory deficit Psychiatric exam: Present: normal affect, normal mood Skin exam: Present: warm, dry, intact, pallor Course Vital Signs 10/16/20 18:02 Temperature 98.6 F Pulse Rate 65 Respiratory 20 Rate Blood Pressure 141/60 O2 Sat by Pulse 96 Oximetry EKG Findings - EKG Comments: EKG Findings:: EKG: Normal sinus rhythm with sinus arrhythmia, no ST segment elevation, rate 64, NM interval 176, QRS duration 98, QTC 431. Medical Decision Making - Medical Decision Making 84-year-old female presented for evaluation of fatigue over the past 8 months. She was recently told she was anemic with no complaints of active bleeding. Exam reveals stable vitals, EKG is sinus. She has normal oxygenation on room air. She has a chest x-ray which is free of focal pneumonia, no acute findings. White blood cell count is 10.7, hemoglobin is 9.8 with no recent for comparison. Hemoccult is negative. Creatinine is 1.08. She does have signs of urinary tract infection. She is treated with antibiotics awaiting urine culture. Given the chronicity of her symptoms, I feel she is stable for discharge with close outpatient follow-up regarding her anemia as well as UTI. - Lab Data Result diagrams: 10/16/20 18:20 10/16/20 18:20 Lab Results 10/16/20 10/16/20 10/16/20 Range/Units 18:20 18:20 18:20 WBC 10.7 H (3.8-10.6) k/uL RBC 2.84 L (3.80-5.40) m/uL Hgb 9.8 L (11.4-16.0) gm/dL Hct 30.6 L (34.0-46.0) % MCV 107.6 H (80.0-100.0) fL MCH 34.4 (25.0-35.0) pg MCHC 32.0 (31.0-37.0) g/dL RDW 14.4 (11.5-15.5) % Plt Count 284 (150-450) k/uL MPV 7.8 Neutrophils % 78 % Lymphocytes % 12 % Monocytes % 5 % Eosinophils % 3 % Basophils % 1 % Neutrophils # 8.4 H (1.3-7.7) k/uL Lymphocytes # 1.3 (1.0-4.8) k/uL Monocytes # 0.6 (0-1.0) k/uL Eosinophils # 0.3 (0-0.7) k/uL Basophils # 0.1 (0-0.2) k/uL Macrocytosis Moderate PT 9.7 (9.0-12.0) sec INR 0.9 (<1.2) APTT 21.9 L (22.0-30.0) sec Sodium (137-145) mmol/L Potassium (3.5-5.1) mmol/L Chloride (98-107) mmol/L Carbon Dioxide (22-30) mmol/L Anion Gap mmol/L BUN (7-17) mg/dL Creatinine (0.52-1.04) mg/dL Est GFR (CKD-EPI)AfAm (>60 ml/min/1.73 sqM) Est GFR (CKD-EPI)NonAf (>60 ml/min/1.73 sqM) Glucose (74-99) mg/dL Plasma Lactic Acid Samuel (0.7-2.0) mmol/L Calcium (8.4-10.2) mg/dL Magnesium (1.6-2.3) mg/dL Total Bilirubin (0.2-1.3) mg/dL AST (14-36) U/L ALT (4-34) U/L Alkaline Phosphatase (38-126) U/L NT-Pro-B Natriuret Pep pg/mL Total Protein (6.3-8.2) g/dL Albumin (3.5-5.0) g/dL Urine Color Yellow Urine Appearance Cloudy H (Clear) Urine pH 6.0 (5.0-8.0) Ur Specific [place] 1.019 (1.001-1.035) Urine Protein Trace H (Negative) Urine Glucose (UA) Negative (Negative) Urine Ketones Negative (Negative) Urine Blood Negative (Negative) Urine Nitrite Positive H (Negative) Urine Bilirubin Negative (Negative) Urine Urobilinogen <2.0 (<2.0) mg/dL Ur Leukocyte Esterase Large H (Negative) Urine RBC 1 (0-5) /hpf Urine WBC 30 H (0-5) /hpf Ur Squamous Epith Cells 5 H (0-4) /hpf Urine Bacteria Many H (None) /hpf Hyaline Casts 10 H (0-2) /lpf Urine Mucus Rare H (None) /hpf Stool Occult Blood (Negative) Blood Type Blood Type Recheck Bld Type Recheck Status Antibody Screen Spec Expiration Date 10/16/20 10/16/20 10/16/20 Range/Units 18:20 18:20 18:20 WBC (3.8-10.6) k/uL RBC (3.80-5.40) m/uL Hgb (11.4-16.0) gm/dL Hct (34.0-46.0) % MCV (80.0-100.0) fL MCH (25.0-35.0) pg MCHC (31.0-37.0) g/dL RDW (11.5-15.5) % Plt Count (150-450) k/uL MPV Neutrophils % % Lymphocytes % % Monocytes % % Eosinophils % % Basophils % % Neutrophils # (1.3-7.7) k/uL Lymphocytes # (1.0-4.8) k/uL Monocytes # (0-1.0) k/uL Eosinophils # (0-0.7) k/uL Basophils # (0-0.2) k/uL Macrocytosis PT (9.0-12.0) sec INR (<1.2) APTT (22.0-30.0) sec Sodium 136 L (137-145) mmol/L Potassium 4.9 (3.5-5.1) mmol/L Chloride 103 (98-107) mmol/L Carbon Dioxide 27 (22-30) mmol/L Anion Gap 6 mmol/L BUN 31 H (7-17) mg/dL Creatinine 1.08 H (0.52-1.04) mg/dL Est GFR (CKD-EPI)AfAm 55 (>60 ml/min/1.73 sqM) Est GFR (CKD-EPI)NonAf 47 (>60 ml/min/1.73 sqM) Glucose 122 H (74-99) mg/dL Plasma Lactic Acid Samuel 1.2 (0.7-2.0) mmol/L Calcium 9.2 (8.4-10.2) mg/dL Magnesium 2.5 H (1.6-2.3) mg/dL Total Bilirubin 0.9 (0.2-1.3) mg/dL AST 27 (14-36) U/L ALT 27 (4-34) U/L Alkaline Phosphatase 65 (38-126) U/L NT-Pro-B Natriuret Pep 1050 pg/mL Total Protein 6.2 L (6.3-8.2) g/dL Albumin 3.8 (3.5-5.0) g/dL Urine Color Urine Appearance (Clear) Urine pH (5.0-8.0) Ur Specific [place] (1.001-1.035) Urine Protein (Negative) Urine Glucose (UA) (Negative) Urine Ketones (Negative) Urine Blood (Negative) Urine Nitrite (Negative) Urine Bilirubin (Negative) Urine Urobilinogen (<2.0) mg/dL Ur Leukocyte Esterase (Negative) Urine RBC (0-5) /hpf Urine WBC (0-5) /hpf Ur Squamous Epith Cells (0-4) /hpf Urine Bacteria (None) /hpf Hyaline Casts (0-2) /lpf Urine Mucus (None) /hpf Stool Occult Blood (Negative) Blood Type Blood Type Recheck Bld Type Recheck Status Antibody Screen Spec Expiration Date 10/16/20 10/16/20 Range/Units 18:20 20:23 WBC (3.8-10.6) k/uL RBC (3.80-5.40) m/uL Hgb (11.4-16.0) gm/dL Hct (34.0-46.0) % MCV (80.0-100.0) fL MCH (25.0-35.0) pg MCHC (31.0-37.0) g/dL RDW (11.5-15.5) % Plt Count (150-450) k/uL MPV Neutrophils % % Lymphocytes % % Monocytes % % Eosinophils % % Basophils % % Neutrophils # (1.3-7.7) k/uL Lymphocytes # (1.0-4.8) k/uL Monocytes # (0-1.0) k/uL Eosinophils # (0-0.7) k/uL Basophils # (0-0.2) k/uL Macrocytosis PT (9.0-12.0) sec INR (<1.2) APTT (22.0-30.0) sec Sodium (137-145) mmol/L Potassium (3.5-5.1) mmol/L Chloride (98-107) mmol/L Carbon Dioxide (22-30) mmol/L Anion Gap mmol/L BUN (7-17) mg/dL Creatinine (0.52-1.04) mg/dL Est GFR (CKD-EPI)AfAm (>60 ml/min/1.73 sqM) Est GFR (CKD-EPI)NonAf (>60 ml/min/1.73 sqM) Glucose (74-99) mg/dL Plasma Lactic Acid Samuel (0.7-2.0) mmol/L Calcium (8.4-10.2) mg/dL Magnesium (1.6-2.3) mg/dL Total Bilirubin (0.2-1.3) mg/dL AST (14-36) U/L ALT (4-34) U/L Alkaline Phosphatase (38-126) U/L NT-Pro-B Natriuret Pep pg/mL Total Protein (6.3-8.2) g/dL Albumin (3.5-5.0) g/dL Urine Color Urine Appearance (Clear) Urine pH (5.0-8.0) Ur Specific [place] (1.001-1.035) Urine Protein (Negative) Urine Glucose (UA) (Negative) Urine Ketones (Negative) Urine Blood (Negative) Urine Nitrite (Negative) Urine Bilirubin (Negative) Urine Urobilinogen (<2.0) mg/dL Ur Leukocyte Esterase (Negative) Urine RBC (0-5) /hpf Urine WBC (0-5) /hpf Ur Squamous Epith Cells (0-4) /hpf Urine Bacteria (None) /hpf Hyaline Casts (0-2) /lpf Urine Mucus (None) /hpf Stool Occult Blood Negative (Negative) Blood Type AB Positive Blood Type Recheck No Previous Record Bld Type Recheck Status CABO Indicated Antibody Screen NEGATIVE Spec Expiration Date 10/19/2020 - 2319 Disposition Clinical Impression: Anemia, UTI (urinary tract infection) Disposition: HOME SELF-CARE Condition: Good Instructions (If sedation given, give patient instructions): Anemia (ED), Urinary Tract Infection in Women (ED) Prescriptions: Nitrofurantoin Monohyd/M-Cryst [Macrobid] 100 mg PO Q12HR #20 cap Is patient prescribed a controlled substance at d/c from ED?: No Referrals: Kristin Pollard MD [Primary Care Provider] - 1-2 days Time of Disposition: 20:41
[2020-10-16 19:38] LABS: Appearance,Urine Cloudy (Clear); Bacteria,Urine Many /hpf; Bilirubin,Urine Negative (Negative); Blood,Urine Negative (Negative); Color,Urine Yellow; Glucose,Urine (UA) Negative (Negative); Hyaline Casts,Urine 10 /lpf (0-2); Ketones,Urine Negative (Negative); Leukocyte Esterase,Urine Large (Negative); Mucus,Urine Rare /hpf; Nitrite,Urine Positive (Negative); Protein,Urine Trace (Negative); RBC,Urine 1 /hpf (0-5); Specific Gravity,Urine 1.019 (1.001-1.035); Squamous Epithelial Cell,Urine 5 /hpf (0-4); Urobilinogen,Urine <2.0 mg/dL (<2.0); WBC,Urine 30 /hpf (0-5)
[2020-10-16 19:40] LABS: Albumin 3.8 g/dL (3.5-5.0); Calcium 9.2 mg/dL (8.4-10.2); Magnesium 2.5 mg/dL (1.6-2.3); Potassium 4.9 mmol/L (3.5-5.1); Total Bilirubin 0.9 mg/dL (0.2-1.3); Total Protein 6.2 g/dL (6.3-8.2)
[2020-10-16 19:45] LABS: Basophils # (A) 0.1 k/uL (0-0.2); Basophils % (A) 1 %; Eosinophils # (A) 0.3 k/uL (0-0.7); Eosinophils % (A) 3 %; HCT 30.6 % (34.0-46.0); HGB 9.8 gm/dL (11.4-16.0); Lymphocytes # (A) 1.3 k/uL (1.0-4.8); Lymphocytes % (A) 12 %; MCH 34.4 pg (25.0-35.0); MCV 107.6 fL (80.0-100.0); Macrocytosis Moderate; Mean Platelet Volume 7.8; Monocytes # (A) 0.6 k/uL (0-1.0); Monocytes % (A) 5 %; Neutrophils # (A) 8.4 k/uL (1.3-7.7); Neutrophils % (A) 78 %; Platelet Count 284 k/uL (150-450); RBC 2.84 m/uL (3.80-5.40); RDW 14.4 % (11.5-15.5); WBC 10.7 k/uL (3.8-10.6)
[2020-10-16 19:54] LABS: INR 0.9 (<1.2); Partial Thromboplastin Time 21.9 sec (22.0-30.0); Prothrombin Time 9.7 sec (9.0-12.0)
--- NOTE | 2020-10-16 19:54 | XR ---
EXAMINATION TYPE: XR chest 2V DATE OF EXAM: 10/16/2020 COMPARISON: 04/19/2015. HISTORY: Shortness of breath. TECHNIQUE: Frontal and lateral views of the chest are obtained. FINDINGS: There is no focal air space opacity, pleural effusion, or pneumothorax seen. The cardiac silhouette size is enlarged. The osseous structures are otherwise intact. Partially imaged left orestes ulder arthroplasty. IMPRESSION: No acute cardiopulmonary process.
[2020-10-16] MEDS ORDERED: cefTRIAXone IN SWFI 1,000 MG/10 ML SYRINGE IVP STA (20:23)
[2020-10-16 20:45] VITALS: BP 130/49; PULSE 66; RESP 18; TEMP 98.3
== END 2020-10-16 21:01 | disposition home or self-care (01) ==
LOC: EC 16:18
DX: N39.0 Urinary tract infection, site not specified (principal); D64.9 Anemia, unspecified; R06.00 Dyspnea, unspecified; F32.9 Major depressive disorder, single episode, unspecified; J45.909 Unspecified asthma, uncomplicated; K21.9 Gastro-esophageal reflux disease without esophagitis; E78.5 Hyperlipidemia, unspecified; I10 Essential (primary) hypertension; E07.9 Disorder of thyroid, unspecified; M79.7 Fibromyalgia; M06.9 Rheumatoid arthritis, unspecified; Z79.51 Long term (current) use of inhaled steroids; Z79.82 Long term (current) use of aspirin; Z79.890 Hormone replacement therapy; Z79.899 Other long term (current) drug therapy; Z88.1 Allergy status to other antibiotic agents; Z88.2 Allergy status to sulfonamides; Z91.048 Other nonmedicinal substance allergy status; Z90.49 Acquired absence of other specified parts of digestive tract; Z95.5 Presence of coronary angioplasty implant and graft; Z90.710 Acquired absence of both cervix and uterus; Z96.612 Presence of left artificial shoulder joint; Z87.891 Personal history of nicotine dependence
CPT/HCPCS: 36415; 93005; 86900; 86901; 83880; 80053; 83605; 83735; 85025; 85610; 85730; 86850; 82272; 81001; 87086; 71046; 99285; 96374; J0696

== ENCOUNTER 2023-11-19 19:09 | Emergency (ER) | payer MEDICARE, OTHER ==
--- NOTE | 2023-11-19 19:26 | ED ---
General Adult HPI - General Chief complaint: Recheck/Abnormal Lab/Rx Stated complaint: abd labs Time Seen by Provider: 11/19/23 19:11 Source: patient, EMS Mode of arrival: EMS - History of Present Illness Initial comments: Dictation was produced using Dat[employer] dictation software. please excuse any grammatical, word or spelling errors. Chief Complaint: 88-year-old female with known history of iron deficiency anemia presents to the ER for low hemoglobin History of Present Illness: Patient is an 80-year-old female she is at the half-way. She had blood work drawn today hemoglobin of 6.8. Patient has known iron deficiency anemia. Patient states that she has black stools from iron supplementation. Patient states she has been feeling weak for a year. She has no acute complaints. Denies any bloody stools. No abdominal pain. No shortness of breath. The ROS documented in this emergency department record has been reviewed and confirmed by me. Those systems with pertinent positive or negative responses have been documented in the HPI. All other systems are other negative and/or noncontributory. - Related Data Home Medications Medication Instructions Recorded Confirmed Famotidine [Pepcid] 20 mg PO DAILY@0800 03/12/18 11/19/23 Montelukast [Singulair] 10 mg PO HS@209903/12/18 11/19/23 DULoxetine HCL [Cymbalta] 60 mg PO BID@0800,1700 01/05/19 11/19/23 Fluticasone Nasal Portis [Flonase 1 spray EA NOSTRIL DAILY@0800 01/05/19 11/19/23 Nasal Portis] HYDROcodone/APAP 10-325MG [Bastrop 1 tab PO BID PRN 01/05/19 11/19/23 10-325] LORazepam [Ativan] 1 mg PO HS@209901/05/19 11/19/23 Albuterol Inhaler [Ventolin Hfa 2 puff INHALATION RT-QID PRN 11/19/23 11/19/23 Inhaler] Aspirin 81 mg PO DAILY@0800 11/19/23 11/19/23 Atorvastatin [Lipitor] 40 mg PO HS@209911/19/23 11/19/23 Calcium Carb/Mag Ox/Zinc Sulf 1 tab PO HS@209911/19/23 11/19/23 [Mhv-Eah-Hfka 334-134-5 mg Tab] Cetirizine HCl [Zyrtec] 10 mg PO DAILY@79911/19/23 11/19/23 Cholestyramine (with Sugar) 4 gm PO DAILY@169911/19/23 11/19/23 [Cholestyramine Packet] Cranberry 450mg 450 mg PO HS@209911/19/23 11/19/23 Docusate [Colace] 100 mg PO BID@0800,169911/19/23 11/19/23 Estrogens, Conjugated Cream 2 gm VAGINAL MOTHSA@79911/19/23 11/19/23 [Premarin Vaginal Cream] Ferrous Sulfate [Feosol] 325 mg PO BID@08,169911/19/23 11/19/23 Fish Oil/Dha/Epa [Fish Oil 1,200 1 cap PO DAILY@79911/19/23 11/19/23 mg Fish Oil] Fluticasone Propion/Salmeterol 1 puff PO RT-BID@799,209911/19/23 11/19/23 [Advair 100-50 Diskus] Folic Acid-Cholecalciferol 2 tab PO HS@209911/19/23 11/19/23 1-10,000mg LORazepam 1 mg PO DAILY PRN 11/19/23 11/19/23 Levothyroxine Sodium [Synthroid] 125 mcg PO BID@0800,169911/19/23 11/19/23 Magnesium Hydroxide [Milk of 7,200 mg PO DAILY PRN 11/19/23 11/19/23 Magnesia Concentrate] Menthol-Zinc Oxide Oint 1 applic TOPICAL Q6H PRN 11/19/23 11/19/23 [Calmoseptine Ointment] Metoprolol Succinate [Toprol XL] 50 mg PO DAILY@79911/19/23 11/19/23 Na Phos,M-B/Na Phos,Di-Ba [Fleet 133 ml RECTAL DAILY PRN 11/19/23 11/19/23 Adult] Nystatin 100,000 Unit/gm Powd 1 applic TOPICAL BID@0800,1700 11/19/23 11/19/23 [Mycostatin Powder] Wheat Dextrin (Benefiber) 1 tbsp PO DAILY@79911/19/2324 bisacodyL [Dulcolax] 10 mg RECTAL DAILY PRN 11/19/23 11/19/23 Allergies Allergy/AdvReac Type Severity Reaction Status Date / Time grass pollen Allergy cough, Verified 11/19/23 20:13 sneeze, runny nose Sulfa (Sulfonamide Allergy Rash/Hives Verified 11/19/23 20:13 Antibiotics) cephalexin [From Keflex] AdvReac Chest Pain Verified 11/19/23 20:13 dust AdvReac runny Uncoded 11/19/23 20:13 nose, sneezing Review of Systems ROS Statement: Those systems with pertinent positive or pertinent negative responses have been documented in the HPI. ROS Other: All systems not noted in ROS Statement are negative. Past Medical History Past Medical History: Asthma, Fibromyalgia, GERD/Reflux, Hyperlipidemia, Hypertension, Rheumatoid Arthritis (RA), Thyroid Disorder Additional Past Medical History / Comment(s): anemia History of Any Multi-Drug Resistant Organisms: None Reported Past Surgical History: Appendectomy, Bariatric Surgery, Cholecystectomy, Heart Catheterization With Stent, Hysterectomy, Orthopedic Surgery Additional Past Surgical History / Comment(s): lap band 05/06/2004, left shoulder replaced, Right ear growth, cardiac Stent Past Anesthesia/Blood Transfusion Reactions: No Reported Reaction Date of Last Stent Placement:: 03/19/2010 Past Psychological History: Depression Smoking Status: Former smoker Past Alcohol Use History: Rare Past Drug Use History: None Reported - Past Family History Mother Family Medical History: Congestive Heart Failure (CHF) General Exam - General Exam Comments Initial Comments: PHYSICAL EXAM: General Impression: Alert and oriented x3, not in acute distress HEENT: Normocephalic atraumatic, extra-ocular movements intact, pupils equal and reactive to light bilaterally, mucous membranes moist. Cardiovascular: Heart regular rate and rhythm Chest: Able to complete full sentences, no retractions, no tachypnea Abdomen: abdomen soft, non-tender, non-distended, no organomegaly Musculoskeletal: Pulses present and equal in all extremities, no peripheral edema Motor: no focal deficits noted Neurological: CN II-XII grossly intact, no focal motor or sensory deficits noted Skin: Intact with no visualized rashes Psych: Normal affect and mood Rectal exam: No gross blood Course Vital Signs 11/19/23 19:13 Temperature 98.1 F Pulse Rate 60 Respiratory 17 Rate Blood Pressure 110/63 O2 Sat by Pulse 99 Oximetry EKG Findings - EKG Comments: EKG Findings:: My EKG interpretation: Ventricular rate 57, sinus bradycardia,. 147, QRS 106, QTc 426. No CT prolongation, no QTC prolongation, no ST or T-wave changes noted. EKG compared to October 16, 2020 showing no changes. Overall, this EKG is unremarkable Medical Decision Making - Medical Decision Making Was pt. sent in by a medical professional or institution ([facility], HEALTH CARE COACH, urgent care, hospital, or half-way...) When possible be specific @ -No Did you speak to anyone other than the patient for history (EMS, parent, family, police, friend...)? What history was obtained from this source @ -No Did you review nursing and triage notes (agree or disagree)? Why? @ -I reviewed and agree with nursing and triage notes Were old charts reviewed (outside hosp., previous admission, EMS record, old EKG, old radiological studies, urgent care reports/EKG's, half-way records)? Report findings @ -No old charts were reviewed Differential Diagnosis (chest pain, altered mental status, abdominal pain women, abdominal pain men, vaginal bleeding, musculoskeletal, weakness, fever, dyspnea, syncope, headache, dizziness, GI bleed, back pain, seizure, CVA, palpatations, mental health)? @ -Not applicable EKG interpreted by me (3pts min.). @ -See above X-rays interpreted by me (1pt min.). @ -None done CT interpreted by me (1pt min.). @ -None done U/S interpreted by me (1pt. min.). @ -None done What testing was considered but not performed or refused? (CT, X-rays, U/S, labs)? Why? @ -None What meds were considered but not given or refused? Why? @ -None Did you discuss the management of the patient with other professionals (professionals i.e. [facility] Johnson, HEALTH CARE COACH, lab, RT, psych nurse, social media manager, weight reduction specialist, teacher, chief safety officer, child welfare caseworker)? Give summary @ -Case discussed with Dr. Edwards who did not feel that patient was amenable for admission due to stable labs, stable condition along with no available beds in the inpatient [facility]. Dr. Edwards request patient be discharged back to [facility]. Was smoking cessation discussed for >3mins.? @ -No Was critical care preformed (if so, how long)? @ -No Were there social determinants of health that impacted care today? How? (Homelessness, low income, unemployed, alcoholism, drug addiction, transportation, low edu. Level, literacy, decrease access to med. care, [facility], rehab)? @ -No Was there de-escalation of care discussed even if they declined (Discuss DNR or withdrawal of care, Hospice)? DNR status @ -No What co-morbidities impacted this encounter? (DM, HTN, Smoking, COPD, CAD, Cancer, CVA, ARF, Chemo, Hep., AIDS, mental health diagnosis, sleep apnea, morbid obesity)? @ -None Was patient admitted / discharged? Hospital course, mention meds given and route, prescriptions, significant lab abnormalities, going to OR and other pertinent info. @ -80-year-old female presents emergency department for abnormal outpatient lab. She has known history of iron deficiency anemia. She apparently had a outpatient hemoglobin level of 6.8. Vital signs stable. Patient is well- appearing she does not have any acute complaints. Labs ordered here in the emergency department with a hemoglobin of 8.0. Rest of labs within acceptable limits. She is however still occult blood positive. Does not take any anticoagulation medications. Disposition options were discussed with patient she is agreeable for discharge. She feels at baseline. Undiagnosed new problem with uncertain prognosis? @ -No Drug Therapy requiring intensive monitoring for toxicity (Heparin, Nitro, Insulin, Cardizem)? @ -No Were any procedures done? @ -No Diagnosis/symptom? Acute, or Chronic, or Acute on Chronic? Uncomplicated (without systemic symptoms) or Complicated (systemic symptoms)? @ -Anemia Side effects of treatment? @ -No Exacerbation, Progression, or Severe Exacerbation? @ -No Poses a threat to life or bodily function? How? (Chest pain, USA, CT, pneumonia, PE, COPD, DKA, ARF, appy, cholecystitis, CVA, Diverticulitis, Homicidal, Suici milton, threat to staff... and all critical care pts) @ -No - Lab Data Result diagrams: 11/19/23 19:54 11/19/23 19:54 Lab Results 11/19/23 11/19/23 11/19/23 Range/Units 19:54 19:54 19:54 WBC 12.5 H (3.8-10.6) k/uL RBC 2.34 L (3.80-5.40) m/uL Hgb 8.0 L (11.4-16.0) gm/dL Hct 25.9 L (34.0-46.0) % MCV 110.6 H (80.0-100.0) fL MCH 34.1 (25.0-35.0) pg MCHC 30.8 L (31.0-37.0) g/dL RDW 14.7 (11.5-15.5) % Plt Count 225 (150-450) k/uL MPV 9.2 Neutrophils % 78 % Lymphocytes % 10 % Monocytes % 5 % Eosinophils % 5 % Basophils % 1 % Neutrophils # 9.8 H (1.3-7.7) k/uL Lymphocytes # 1.3 (1.0-4.8) k/uL Monocytes # 0.6 (0-1.0) k/uL Eosinophils # 0.6 (0-0.7) k/uL Basophils # 0.1 (0-0.2) k/uL Manual Slide Review Performed Polychromasia Present Hypochromasia Slight Macrocytosis Marked A PT 11.2 (10.0-12.5) sec INR 1.0 (<1.2) APTT 25.6 (22.0-30.0) sec Sodium (137-145) mmol/L Potassium (3.5-5.1) mmol/L Chloride (98-107) mmol/L Carbon Dioxide (22-30) mmol/L Anion Gap mmol/L BUN (7-17) mg/dL Creatinine (0.52-1.04) mg/dL Est GFR (CKD-EPI)AfAm (>60 ml/min/1.73 sqM) Est GFR (CKD-EPI)NonAf (>60 ml/min/1.73 sqM) Glucose (74-99) mg/dL Calcium (8.4-10.2) mg/dL Stool Occult Blood Positive H (Negative) Blood Type Blood Type Recheck Bld Type Recheck Status Antibody Screen Spec Expiration Date 11/19/23 11/19/23 Range/Units 19:54 19:54 WBC (3.8-10.6) k/uL RBC (3.80-5.40) m/uL Hgb (11.4-16.0) gm/dL Hct (34.0-46.0) % MCV (80.0-100.0) fL MCH (25.0-35.0) pg MCHC (31.0-37.0) g/dL RDW (11.5-15.5) % Plt Count (150-450) k/uL MPV Neutrophils % % Lymphocytes % % Monocytes % % Eosinophils % % Basophils % % Neutrophils # (1.3-7.7) k/uL Lymphocytes # (1.0-4.8) k/uL Monocytes # (0-1.0) k/uL Eosinophils # (0-0.7) k/uL Basophils # (0-0.2) k/uL Manual Slide Review Polychromasia Hypochromasia Macrocytosis PT (10.0-12.5) sec INR (<1.2) APTT (22.0-30.0) sec Sodium 136 L (137-145) mmol/L Potassium 4.1 (3.5-5.1) mmol/L Chloride 106 (98-107) mmol/L Carbon Dioxide 24 (22-30) mmol/L Anion Gap 6 mmol/L BUN 35 H (7-17) mg/dL Creatinine 1.06 H (0.52-1.04) mg/dL Est GFR (CKD-EPI)AfAm 54 (>60 ml/min/1.73 sqM) Est GFR (CKD-EPI)NonAf 47 (>60 ml/min/1.73 sqM) Glucose 122 H (74-99) mg/dL Calcium 9.2 (8.4-10.2) mg/dL Stool Occult Blood (Negative) Blood Type AB Positive Blood Type Recheck AB Pos Bld Type Recheck Status No Antibody Screen NEGATIVE Spec Expiration Date 11/22/20232353 Disposition Clinical Impression: Anemia Disposition: HOME SELF-CARE Condition: Fair Is patient prescribed a controlled substance at d/c from ED?: No Referrals: Kristin Pollard MD [Primary Care Provider] - 1-2 days Time of Disposition: 21:45
[2023-11-19 19:37] VITALS: TEMP 98.1
[2023-11-19 20:09] LABS: Basophils # (A) 0.1 k/uL (0-0.2); Basophils % (A) 1 %; Eosinophils # (A) 0.6 k/uL (0-0.7); Eosinophils % (A) 5 %; HCT 25.9 % (34.0-46.0); Hypochromasia Slight; Lymphocytes # (A) 1.3 k/uL (1.0-4.8); Lymphocytes % (A) 10 %; MCH 34.1 pg (25.0-35.0); MCHC 30.8 g/dL (31.0-37.0); MCV 110.6 fL (80.0-100.0); Macrocytosis Marked; Mean Platelet Volume 9.2; Monocytes # (A) 0.6 k/uL (0-1.0); Monocytes % (A) 5 %; Neutrophils # (A) 9.8 k/uL (1.3-7.7); Neutrophils % (A) 78 %; Platelet Count 225 k/uL (150-450); RBC 2.34 m/uL (3.80-5.40); RDW 14.7 % (11.5-15.5); WBC 12.5 k/uL (3.8-10.6)
[2023-11-19 20:26] LABS: African American GFR (CKD) 54 (>60 ml/min/1.73 sqM); Anion Gap 6 mmol/L; Blood Urea Nitrogen 35 mg/dL (7-17); Calcium 9.2 mg/dL (8.4-10.2); Carbon Dioxide 24 mmol/L (22-30); Chloride 106 mmol/L (98-107); Glucose 122 mg/dL (74-99); Non-African American GFR(CKD) 47 (>60 ml/min/1.73 sqM); Potassium 4.1 mmol/L (3.5-5.1); Sodium 136 mmol/L (137-145)
[2023-11-19 20:45] LABS: Polychromasia Present
[2023-11-19 21:33] LABS: Partial Thromboplastin Time 25.6 sec (22.0-30.0); Prothrombin Time 11.2 sec (10.0-12.5)
[2023-11-19 22:56] VITALS: BP 121/44; PULSE 98; RESP 18
== END 2023-11-19 23:11 | disposition home or self-care (01) ==
LOC: EC 19:09
DX: D64.9 Anemia, unspecified (principal); R00.1 Bradycardia, unspecified; Z87.891 Personal history of nicotine dependence; Z88.2 Allergy status to sulfonamides; Z88.8 Allergy status to other drugs, medicaments and biological substances; Z88.1 Allergy status to other antibiotic agents
CPT/HCPCS: 36415; 80048; 82272; 85025; 85610; 85730; 86850; 86900; 86901; 93005; 99284

== ENCOUNTER → 2024-02-23 | Outpatient (CLI) | payer MEDICARE, OTHER ==
[2024-02-23 18:27] LABS: BUN/Creat Ratio 22.18 Ratio (12.00-20.00); Blood Urea Nitrogen 24.4 mg/dL (9.0-27.0); Calcium 9.2 mg/dL (8.7-10.3); Carbon Dioxide 27.2 mmol/L (21.6-31.8); Chloride 103 mmol/L (96-109); Glucose 102 mg/dL (70-110); Potassium 4.8 mmol/L (3.5-5.5); Sodium 139 mmol/L (135-145)
== END | disposition home or self-care (01) ==
LOC: LABWHC1 12:44
PROVIDERS: ATTEND Internal Medicine
DX: I50.9 Heart failure, unspecified (principal); E87.6 Hypokalemia
CPT/HCPCS: 36415; 80048

== ENCOUNTER 2024-03-23 20:28 | Inpatient (IN) | payer MEDICARE, OTHER ==
[2024-03-23] MEDS: IPRATROPIUM-ALBUTEROL 3 ML NEB INHALATION STA (21:30)
--- NOTE | 2024-03-23 21:47 | XR ---
EXAMINATION TYPE: XR chest 2V DATE OF EXAM: 03/23/2024 COMPARISON: 10/16/2020 HISTORY: 88 year-old female altered mental's status, confusion TECHNIQUE: AP and lateral views FINDINGS: Left shoulder arthroplasty. Moderate degenerative change right shoulder. Heart is mild to moderately enlarged. Patient is rotated toward the right artery and the cardiac mediastinal contours. There is d iffuse interstitial density. Fluid mildly thickening the minor fissure. Small bilateral pleural effus ions and interstitial density. IMPRESSION: Limited, rotated exam. Correlate for CHF with pulmonary vascular congestion. Small bilateral pleural effusions with adjacent atelectasis and/or consolidation.
--- NOTE | 2024-03-23 21:55 | CT ---
EXAMINATION TYPE: CT brain wo con DATE OF EXAM: 03/23/2024 COMPARISON: None HISTORY: 88-year-old female confusion, AMS TECHNIQUE: Examination was done in axial plane without intravenous contrast. Coronal and sagittal r econstructions performed. CT DLP: 1129.7 mGycm Automated exposure control for dose reduction was used. FINDINGS: There is no evidence of acute intracranial hemorrhage, acute ischemic changes, mass, mass-effect, or extra-axial fluid collection. There is no effacement of cerebral sulci or basal subarachnoid cister ns. There is no hydrocephalus. There is no midline shift. Cruz-white matter distinction is preserv ed. Mild to moderate generalized supratentorial volume loss. Atherosclerotic calcifications in the caroti d siphons. Partially empty sella. Paranasal sinuses and mastoid air cells are well-pneumatized. Leftward nasal septal deviation. Orbits and globes are intact. IMPRESSION: [id number] generalized cerebral atrophy. No acute intracranial abnormality seen.
[2024-03-23] MEDS: HYDROcodone/APAP 10-325MG 1 EACH TAB PO ONE (22:06)
[2024-03-23 22:13] LABS: Basophils % (A) 0 %; Eosinophils # (A) 0.9 k/uL (0-0.7); Eosinophils % (A) 14 %; HCT 30.5 % (34.0-46.0); HGB 9.8 gm/dL (11.4-16.0); Lymphocytes # (A) 1.2 k/uL (1.0-4.8); Lymphocytes % (A) 18 %; MCH 32.3 pg (25.0-35.0); MCHC 32.1 g/dL (31.0-37.0); MCV 100.6 fL (80.0-100.0); Macrocytosis Slight; Monocytes # (A) 0.4 k/uL (0-1.0); Monocytes % (A) 6 %; Neutrophils # (A) 3.9 k/uL (1.3-7.7); Neutrophils % (A) 59 %; Platelet Count 204 k/uL (150-450); RBC 3.03 m/uL (3.80-5.40); RDW 13.9 % (11.5-15.5); WBC 6.5 k/uL (3.8-10.6)
[2024-03-23 22:16] LABS: ALT 11 U/L (4-34); AST 19 U/L (14-36); African American GFR (CKD) 62 (>60 ml/min/1.73 sqM); Alkaline Phosphatase 69 U/L (38-126); Anion Gap 1 mmol/L; Blood Urea Nitrogen 26 mg/dL (7-17); Calcium 8.9 mg/dL (8.4-10.2); Carbon Dioxide 32 mmol/L (22-30); Chloride 101 mmol/L (98-107); Glucose 90 mg/dL (74-99); Magnesium 2.1 mg/dL (1.6-2.3); Non-African American GFR(CKD) 54 (>60 ml/min/1.73 sqM); Phosphorus 3.5 mg/dL (2.5-4.5); Potassium 5.1 mmol/L (3.5-5.1); Sodium 134 mmol/L (137-145); Total Bilirubin 0.8 mg/dL (0.2-1.3); Total Protein 5.3 g/dL (6.3-8.2)
[2024-03-23 22:22] LABS: Partial Thromboplastin Time 23.8 sec (22.0-30.0); Prothrombin Time 10.9 sec (10.0-12.5)
[2024-03-23 22:25] LABS: NT-Pro-B-Type Natriuretic Pept 2200 pg/mL
[2024-03-23 22:49] LABS: Appearance,Urine Clear (Clear); Bacteria,Urine Moderate /hpf; Bilirubin,Urine Negative (Negative); Blood,Urine Negative (Negative); Color,Urine Light Yellow; Glucose,Urine (UA) Negative (Negative); Ketones,Urine Negative (Negative); Leukocyte Esterase,Urine Large (Negative); Nitrite,Urine Positive (Negative); PH, Urine 6.5 (5.0-8.0); Protein,Urine Negative (Negative); RBC,Urine 1 /hpf (0-5); Specific Gravity,Urine 1.015 (1.001-1.035); Squamous Epithelial Cell,Urine 4 /hpf (0-4); Urobilinogen,Urine <2.0 mg/dL (<2.0); WBC,Urine 23 /hpf (0-5)
--- NOTE | 2024-03-23 23:11 | ED ---
Altered Mental Status HPI - General Chief Complaint: Altered Mental Status Stated Complaint: UTI Time Seen by Provider: 03/23/24 20:30 Source: patient, family, EMS, RN notes reviewed Mode of arrival: EMS Limitations: no limitations - History of Present Illness Initial Comments: This is an 88-year-old female who presents to the emergency department for jackson llucinations. Patient states that over the last few days she has had auditory and visual hallucinations. She is aware that these are happening but unable to control it. Denies any history of similar problems in the past. She does note decreased urine output. Additionally, she is oxygen dependent due to COPD and wears 2 L at baseline. She has felt increasingly short of breath over the last couple of days. Denies any chest pain. Patient does live alone. - Related Data Home Medications Medication Instructions Recorded Confirmed Famotidine [Pepcid] 20 mg PO DAILY@0800 03/12/18 02/23/24 Montelukast [Singulair] 10 mg PO HS@209903/12/18 02/23/24 DULoxetine HCL [Cymbalta] 60 mg PO BID@0800,17001/05/19 02/23/24 Fluticasone Nasal [place] [Flonase 1 spray EA NOSTRIL DAILY@79901/05/19 02/23/24 Nasal [place]] HYDROcodone/APAP 10-325MG [[place] 1 tab PO BID PRN 01/05/19 02/23/24 10-325] LORazepam [Ativan] 1 mg PO HS@209901/05/19 02/23/24 Albuterol Inhaler [Ventolin Hfa 2 puff INHALATION RT-QID PRN 11/19/23 02/23/24 Inhaler] Aspirin 81 mg PO DAILY@79911/19/23 02/23/24 Atorvastatin [Lipitor] 40 mg PO HS@209911/19/23 02/23/24 Calcium Carb/Mag Ox/Zinc Sulf 1 tab PO HS@209911/19/23 02/23/24 [Qce-Xce-Iuob 334-134-5 mg Tab] Cetirizine HCl [Zyrtec] 10 mg PO DAILY@79911/19/23 02/23/24 Cholestyramine (with Sugar) 4 gm PO DAILY@169911/19/23 02/23/24 [Cholestyramine Packet] Cranberry 450mg 450 mg PO HS@209911/19/23 02/23/24 Docusate [Colace] 100 mg PO BID@0800,169911/19/23 02/23/24 Estrogens, Conjugated Cream 2 gm VAGINAL MOTHSA@79911/19/23 02/23/24 [Premarin Vaginal Cream] Ferrous Sulfate [Feosol] 325 mg PO BID@0800,169911/19/23 02/23/24 Fish Oil/Dha/Epa [Fish Oil 1,200 1 cap PO DAILY@79911/19/23 02/23/24 mg Fish Oil] Fluticasone Propion/Salmeterol 1 puff PO RT-BID@00,209911/19/23 02/23/24 [Advair 100-50 Diskus] Folic Acid-Cholecalciferol 2 tab PO HS@209911/19/23 02/23/24 1-10,000mg LORazepam 1 mg PO DAILY PRN 11/19/23 02/23/24 Levothyroxine Sodium [Synthroid] 125 mcg PO BID@0800,169911/19/23 02/23/24 Magnesium Hydroxide [Milk of 7,200 mg PO DAILY PRN 11/19/23 02/23/24 Magnesia Concentrate] Menthol-Zinc Oxide Oint 1 applic TOPICAL Q6H PRN 11/19/23 02/23/24 [Calmoseptine Ointment] Metoprolol Succinate [Toprol XL] 50 mg PO DAILY@79911/19/23 02/23/24 Na Phos,M-B/Na Phos,Di-Ba [Fleet 133 ml RECTAL DAILY PRN 11/19/23 02/23/24 Adult] Nystatin 100,000 Unit/gm Powd 1 applic TOPICAL BID@0800,169911/19/23 02/23/24 [Mycostatin Powder] Wheat Dextrin (Benefiber) 1 tbsp PO DAILY@79911/19/23 02/23/24 bisacodyL [Dulcolax] 10 mg RECTAL DAILY PRN 11/19/23 02/23/24 Allergies Allergy/AdvReac Type Severity Reaction Status Date / Time grass pollen Allergy cough, Verified 02/23/24 13:44 sneeze, runny nose Sulfa (Sulfonamide Allergy Rash/Hives Verified 02/23/24 13:44 Antibiotics) cephalexin [From Keflex] AdvReac Chest Pain Verified 02/23/24 13:44 dust AdvReac runny Uncoded 02/23/24 13:44 nose, sneezing Review of Systems ROS Statement: Those systems with pertinent positive or pertinent negative responses have been documented in the HPI. ROS Other: All systems not noted in ROS Statement are negative. Past Medical History Past Medical History: Asthma, Fibromyalgia, GERD/Reflux, Hyperlipidemia, Hypertension, Rheumatoid Arthritis (RA), Thyroid Disorder Additional Past Medical History / Comment(s): anemia History of Any Multi-Drug Resistant Organisms: None Reported Past Surgical History: Appendectomy, Bariatric Surgery, Cholecystectomy, Heart Catheterization With Stent, Hysterectomy, Orthopedic Surgery Additional Past Surgical History / Comment(s): lap band 05/06/2004, left shoulder replaced, Right ear growth, cardiac Stent Past Anesthesia/Blood Transfusion Reactions: No Reported Reaction Date of Last Stent Placement:: 03/19/2010 Past Psychological History: Depression Smoking Status: Former smoker - Past Family History Mother Family Medical History: Congestive Heart Failure (CHF) General Exam Limitations: no limitations General appearance: alert, in no apparent distress Head exam: Present: atraumatic, normocephalic, normal inspection Eye exam: Present: normal appearance, PERRL, EOMI. Absent: scleral icterus, conjunctival injection, periorbital swelling Respiratory exam: Present: wheezes, decreased breath sounds, prolonged expiratory Cardiovascular Exam: Present: bradycardia GI/Abdominal exam: Present: soft, normal bowel sounds. Absent: distended, tenderness, guarding, rebound, rigid Neurological exam: Present: alert, oriented X3, CN II-XII intact Psychiatric exam: Present: normal affect, normal mood Skin exam: Present: warm, dry, intact, normal color. 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 Was pt. sent in by a medical professional or institution? @ -No Did you speak to anyone other than the patient for history? @ -No Did you review nursing and triage notes? @ -Yes, and I agree, it is accurate with regards to the patient's symptoms. Were old charts reviewed? @ -No Differential Diagnosis? @ -Differential Dyspnea: Coronary syndrome, arrhythmia, tamponade, asthma, COPD, pulmonary embolism, pneumonia, pneumothorax, pulmonary effusion, anaphylaxis, diabetic ketoacidosis, flailed chest, pulmonary contusion, diaphragmatic rupture, anemia, neuromuscular, this is not meant to be an all-inclusive list. EKG interpreted by me (3pts min.)? @ -EKG interpreted by me demonstrating the following: Sinus bradycardia. Ventricular rate 57 bpm, MS interval 155 ms, QRS duration 99 ms, QTc 433 ms. X-rays interpreted by me (1pt min.)? @ -Chest x-ray obtained. My interpretation identifies pulmonary vascular congestion. CT interpreted by me (1pt min.)? @ -CT scan of the brain obtained. My interpretation identifies no evidence of an acute intracranial hemorrhage. U/S interpreted by me (1pt. min.)? @ -Not obtained What testing was considered but not performed? (CT, X-rays, U/S, labs)? Why? @ -None What meds were considered but not given? Why? @ -None Did you discuss the management of the patient with other professionals? @ -Yes, Dr. Edwards, who accepts the patient for admission. Did you reconcile home meds? @ -No Was smoking cessation discussed for >3mins.? @ -No Was critical care preformed (if so, how long)? @ -No Were there social determinants of health that impacted care today? How? (Homelessness, low income, unemployed, alcoholism, drug addiction, transportation, low edu. Level, literacy, decrease access to med. care, long term, rehab)? @ -No Was there de-escalation of care discussed even if they declined? (Discuss DNR or withdrawal of care, Hospice)? @ -No What co-morbidities impacted this encounter? (DM, HTN, Smoking, COPD, CAD, Cancer, CVA, Hep., AIDS, mental health diagnosis, sleep apnea, morbid obesity)? @ -COPD, asthma, HTN, HLD, CHF, anemia Was patient admitted / discharged? @ -Admitted. Lab work demonstrates an elevated BNP of 2200. COVID, influenza, and RSV testing negative. Urinalysis consistent with infection. Chest x-ray reveals findings suggestive of CHF with pulmonary vascular congestion. She also has small bilateral pleural effusions. CT scan of the brain obtained revealing no acute process. Patient admitted to medicine for hallucinations with UTI as well as CHF exacerbation. Blood and urine cultures obtained. Patient has an allergy to cephalosporins and was started on 750 mg of Levaquin daily. 40 mg of IV Lasix administered as well. Case discussed with ED attending Dr. Plummer. Undiagnosed new problem with uncertain prognosis? @ -None Drug Therapy requiring intensive monitoring for toxicity (Heparin, Nitro, Insulin, Cardizem)? @ -None Were any procedures done? @ -None Diagnosis/symptom? @ -Hallucinations, UTI Acute, or Chronic, or Acute on Chronic? @ -Acute Uncomplicated (without systemic symptoms) or Complicated (systemic symptoms)? @ -Complicated Side effects of treatment? @ -None Exacerbation, Progression, or Severe Exacerbation] @ -Not applicable Poses a threat to life or bodily function? @ -Yes, can progress to septic shock and . Hallucinations are also interfering with her function. Diagnosis/symptom? @ -CHF exacerbation Acute, or Chronic, or Acute on Chronic? @ -Acute on chronic Uncomplicated (without systemic symptoms) or Complicated (systemic symptoms)? @ -Uncomplicated Side effects of treatment? @ -None Exacerbation, Progression, or Severe Exacerbation] @ -Exacerbation Poses a threat to life or bodily function? @ -Yes, can lead to progressive respiratory difficulties. - Lab Data Result diagrams: 03/23/24 21:49 03/23/24 21:49 Lab Results 03/23/24 03/23/24 03/23/24 Range/Units 21:49 21:49 21:49 WBC 6.5 (3.8-10.6) k/uL RBC 3.03 L (3.80-5.40) m/uL Hgb 9.8 L (11.4-16.0) gm/dL Hct 30.5 L (34.0-46.0) % MCV 100.6 H (80.0-100.0) fL MCH 32.3 (25.0-35.0) pg MCHC 32.1 (31.0-37.0) g/dL RDW 13.9 (11.5-15.5) % Plt Count 204 (150-450) k/uL MPV 9.0 Neutrophils % 59 % Lymphocytes % 18 % Monocytes % 6 % Eosinophils % 14 % Basophils % 0 % Neutrophils # 3.9 (1.3-7.7) k/uL Lymphocytes # 1.2 (1.0-4.8) k/uL Monocytes # 0.4 (0-1.0) k/uL Eosinophils # 0.9 H (0-0.7) k/uL Basophils # 0.0 (0-0.2) k/uL Macrocytosis Slight PT 10.9 (10.0-12.5) sec INR 1.0 (<1.2) APTT 23.8 (22.0-30.0) sec Sodium 134 L (137-145) mmol/L Potassium 5.1 (3.5-5.1) mmol/L Chloride 101 (98-107) mmol/L Carbon Dioxide 32 H (22-30) mmol/L Anion Gap 1 mmol/L BUN 26 H (7-17) mg/dL Creatinine 0.95 (0.52-1.04) mg/dL Est GFR (CKD-EPI)AfAm 62 (>60 ml/min/1.73 sqM) Est GFR (CKD-EPI)NonAf 54 (>60 ml/min/1.73 sqM) Glucose 90 (74-99) mg/dL Plasma Lactic Acid Samuel (0.7-2.0) mmol/L Calcium 8.9 (8.4-10.2) mg/dL Phosphorus 3.5 (2.5-4.5) mg/dL Magnesium 2.1 (1.6-2.3) mg/dL Total Bilirubin 0.8 (0.2-1.3) mg/dL AST 19 (14-36) U/L ALT 11 (4-34) U/L Alkaline Phosphatase 69 (38-126) U/L Troponin I (0.000-0.034) ng/mL NT-Pro-B Natriuret Pep 2200 pg/mL Total Protein 5.3 L (6.3-8.2) g/dL Albumin 3.0 L (3.5-5.0) g/dL Urine Color Urine Appearance (Clear) Urine pH (5.0-8.0) Ur Specific [place] (1.001-1.035) Urine Protein (Negative) Urine Glucose (UA) (Negative) Urine Ketones (Negative) Urine Blood (Negative) Urine Nitrite (Negative) Urine Bilirubin (Negative) Urine Urobilinogen (<2.0) mg/dL Ur Leukocyte Esterase (Negative) Urine RBC (0-5) /hpf Urine WBC (0-5) /hpf Ur Squamous Epith Cells (0-4) /hpf Urine Bacteria (None) /hpf 03/23/24 03/23/24 03/23/24 Range/Units 21:49 21:49 22:36 WBC (3.8-10.6) k/uL RBC (3.80-5.40) m/uL Hgb (11.4-16.0) gm/dL Hct (34.0-46.0) % MCV (80.0-100.0) fL MCH (25.0-35.0) pg MCHC (31.0-37.0) g/dL RDW (11.5-15.5) % Plt Count (150-450) k/uL MPV Neutrophils % % Lymphocytes % % Monocytes % % Eosinophils % % Basophils % % Neutrophils # (1.3-7.7) k/uL Lymphocytes # (1.0-4.8) k/uL Monocytes # (0-1.0) k/uL Eosinophils # (0-0.7) k/uL Basophils # (0-0.2) k/uL Macrocytosis PT (10.0-12.5) sec INR (<1.2) APTT (22.0-30.0) sec Sodium (137-145) mmol/L Potassium (3.5-5.1) mmol/L Chloride (98-107) mmol/L Carbon Dioxide (22-30) mmol/L Anion Gap mmol/L BUN (7-17) mg/dL Creatinine (0.52-1.04) mg/dL Est GFR (CKD-EPI)AfAm (>60 ml/min/1.73 sqM) Est GFR (CKD-EPI)NonAf (>60 ml/min/1.73 sqM) Glucose (74-99) mg/dL Plasma Lactic Acid Samuel 0.6 L (0.7-2.0) mmol/L Calcium (8.4-10.2) mg/dL Phosphorus (2.5-4.5) mg/dL Magnesium (1.6-2.3) mg/dL Total Bilirubin (0.2-1.3) mg/dL AST (14-36) U/L ALT (4-34) U/L Alkaline Phosphatase (38-126) U/L Troponin I <0.012 (0.000-0.034) ng/mL NT-Pro-B Natriuret Pep pg/mL Total Protein (6.3-8.2) g/dL Albumin (3.5-5.0) g/dL Urine Color Light Yellow Urine Appearance Clear (Clear) Urine pH 6.5 (5.0-8.0) Ur Specific [place] 1.015 (1.001-1.035) Urine Protein Negative (Negative) Urine Glucose (UA) Negative (Negative) Urine Ketones Negative (Negative) Urine Blood Negative (Negative) Urine Nitrite Positive H (Negative) Urine Bilirubin Negative (Negative) Urine Urobilinogen <2.0 (<2.0) mg/dL Ur Leukocyte Esterase Large H (Negative) Urine RBC 1 (0-5) /hpf Urine WBC 23 H (0-5) /hpf Ur Squamous Epith Cells 4 (0-4) /hpf Urine Bacteria Moderate H (None) /hpf - Radiology Data Radiology results: report reviewed, image reviewed Disposition Clinical Impression: UTI (urinary tract infection), Hallucinations, CHF exacerbation Disposition: ADMITTED IP TO THIS HOSP
[2024-03-23] MEDS ORDERED: NALOXONE 0.4 MG/ML 1 ML VIAL IV PRN (23:12)
[2024-03-23] MEDS ORDERED: MORPHINE SULFATE 4 MG/ML SYRINGE IV PRN (23:12)
[2024-03-23] MEDS: LEVOFLOXACIN 750MG-D5W PMX 750 MG in DEXTROSE/WATER 1 150ML.BAG IVPB SCH (23:41)
[2024-03-23] MEDS: FUROSEMIDE 10 MG/ML 4 ML VIAL IV STA (23:41)
[2024-03-24] MEDS: PANTOPRAZOLE 40 MG/10 ML VIAL IV SCH (08:55)
[2024-03-24] MEDS: HYDROcodone/APAP 5-325MG 1 EACH TAB PO PRN (09:21)
[2024-03-24] MEDS ORDERED: NALOXONE 0.4 MG/ML 1 ML VIAL IV PRN (10:38)
[2024-03-24] MEDS: LEVOTHYROXINE 125 MCG TAB PO SCH (10:57)
[2024-03-24] MEDS: SPIRONOLACTONE 25 MG TAB PO SCH (10:57)
[2024-03-24] MEDS: FAMOTIDINE 20 MG TAB PO SCH (10:57)
[2024-03-24] MEDS: DULoxetine HCL 60 MG CAPSULE.DR PO SCH (10:57)
[2024-03-24] MEDS: POTASSIUM CHLORIDE ER 10 MEQ TAB.ER.PRT PO SCH (10:57)
[2024-03-24] MEDS: ENOXAPARIN 40 MG/0.4 ML SYRINGE SQ SCH (10:57)
[2024-03-24] MEDS: FOLIC ACID 1 MG TAB PO SCH (10:57)
[2024-03-24] MEDS: DAPAGLIFLOZIN PROPANEDIOL 10 MG TABLET PO SCH (10:57)
[2024-03-24] MEDS: METOPROLOL SUCCINATE (ER) 25 MG TAB.ER.24H PO SCH (10:57)
[2024-03-24] MEDS: ASPIRIN 81 MG PO SCH (10:57)
[2024-03-24] MEDS: RANOLAZINE 500 MG TAB.ER.12H PO SCH (10:57)
[2024-03-24] MEDS: SYMBICORT 80-4.5 MCG INHALER INHALATION SCH (11:41)
[2024-03-24] MEDS: ONDANSETRON 4 MG/2 ML VIAL IVP PRN (13:36)
--- NOTE | 2024-03-24 14:53 | P.HPIM ---
History of Present Illness H&P Date: 03/24/24 Chief Complaint: Not feeling well Pleasant 88-year-old patient follows Dr. Dong. Lives alone. Does use a walker. Stable medical conditions include fibromyalgia, GERD, hyperlipidemia, hypertension, rheumatoid arthritis, hypothyroid, anemia, CAD with stent. Patient not been feeling well for quite some time. Feels tired all the time. Good urine infections. Does take laxatives for a bowel movement though has not every day. Decreased appetite. Joints hurt her quite a bit. Does not sleep too well. She sees people sitting in the room. Sometimes talking. Her daughter is living with her right now sometimes hear her talking at night. Decreased appetite. Denies any fever and chills Review of systems: GEN.: Tired decreased appetite EYES: None HEENT: None NECK: None RESPIRATORY: None CARDIOVASCULAR: None GASTROINTESTINAL: None GENITOURINARY: Burning in the urine] MUSCULOSKELETAL: Joint pains LYMPHATICS: None HEMATOLOGICAL: None PSYCHIATRY: Auditory and visual hallucinations e NEUROLOGICAL: [Uses a walker Social history: Lives alone. Uses a wheeled walker.. Currently daughter is living with her. Did smoke in the past. Rarely alcohol Physical examination: VITAL SIGNS: 97.6, 60, 14, 148/51, 95% on 2 L GENERAL: BMI 47.1, reclining bed slightly withdrawn. EYES: Pupils equal. Conjunctiva joel l. HEENT: External appearance of nose and ears normal, oral cavity grossly normal. NECK: JVD not raised; masses not palpable. HEART: First and second heart sounds are normal; no edema. LUNGS: Respiratory rate normal; decreased breath sounds. ABDOMEN: Soft, nontender, liver spleen not palpable, no masses palpable. PSYCH: [Alert and oriented x3; mood and affect but anxious. MUSCULOSKELETAL:No Clubbing/cyanosis;muscles-grossly intact. OA NEUROLOGICAL: Cranial nerves grossly intact; no facial asymmetry, power and sensation grossly intact. LYMPHATICS: No lymph nodes palpable in the axilla and neck INVESTIGATIONS, reviewed in the clinical context: March 23, 2024: White count 6.5 hemoglobin 9.8 platelets 204 sodium 134 pot assium 5.1 BUN 26 creatinine 0.95 UA positive for nitrite, leukoesterase, WBC 23 Influenza type A, type B, RSV, COVID-19: Not detected EKG tracing personally reviewed by me-sinus bradycardia. Chest x-ray film personally reviewed by me-a bit underpenetrated due to body mass cardiomegaly questionable venous prominence Assessment plan: -Acute UTI with cystitis, recurrent Levaquin -Auditory and visual hallucinations. Will try dose of Risperdal at night. Sleep hygiene discussed with the patient. -COPD no prior smoker Advair. 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 -DNR, patient wishes Past Medical History Past Medical History: Asthma, Fibromyalgia, GERD/Reflux, Hyperlipidemia, Hypertension, Rheumatoid Arthritis (RA), Thyroid Disorder Additional Past Medical History / Comment(s): anemia History of Any Multi-Drug Resistant Organisms: None Reported Past Surgical History: Appendectomy, Bariatric Surgery, Cholecystectomy, Heart Catheterization With Stent, Hysterectomy, Orthopedic Surgery Additional Past Surgical History / Comment(s): lap band 05/06/2004, left shoulder replaced, Right ear growth, cardiac Stent Past Anesthesia/Blood Transfusion Reactions: No Reported Reaction Date of Last Stent Placement:: 03/19/2010 Past Psychological History: Depression Smoking Status: Former smoker - Past Family History Mother Family Medical History: Congestive Heart Failure (CHF) Medications and Allergies Home Medications Medication Instructions Recorded Confirmed Type Famotidine [Pepcid] 20 mg PO DAILY 03/12/18 03/24/24 History Montelukast [Singulair] 10 mg PO HS 03/12/18 03/24/24 History DULoxetine HCL [Cymbalta] 60 mg PO BID 01/05/19 03/24/24 History LORazepam [Ativan] 1 mg PO HS 01/05/19 03/24/24 History Aspirin 81 mg PO DAILY 11/19/23 03/24/24 History Atorvastatin [Lipitor] 40 mg PO HS 11/19/23 03/24/24 History Cetirizine HCl [Zyrtec] 10 mg PO DAILY 11/19/23 03/24/24 History Cholestyramine (with Sugar) 4 gm PO DAILY PRN 11/19/23 03/24/24 History [Cholestyramine Packet] Ferrous Sulfate [Feosol] 325 mg PO BID 11/19/23 03/24/24 History Fluticasone Propion/Salmeterol 1 puff PO RT-BID 11/19/23 03/24/24 History [Advair 100-50 Diskus] Levothyroxine Sodium [Synthroid] 125 mcg PO BID 11/19/23 03/24/24 History Dapagliflozin Propanediol [Farxiga] 10 mg PO DAILY 03/24/24 03/24/24 History Estrogens, Conjugated Cream 1 applicator VAGINAL DIRECTED 03/24/24 03/24/24 History [Premarin Vaginal Cream] Folic Acid 1 mg PO DAILY 03/24/24 03/24/24 History Furosemide [Lasix] 20 mg PO DAILY 03/24/24 03/24/24 History Metoprolol Succinate (ER) [Toprol 25 mg PO DAILY 03/24/24 03/24/24 History Xl] Potassium Chloride ER [K-Dur 10] 10 meq PO DAILY 03/24/24 03/24/24 History Ranolazine [Ranexa] 500 mg PO BID 03/24/24 03/24/24 History Spironolactone [Aldactone] 25 mg PO MOWEFR 03/24/24 03/24/24 History Allergies Allergy/AdvReac Type Severity Reaction Status Date / Time grass pollen Allergy cough, Verified 03/24/24 09:55 sneeze, runny nose Sulfa (Sulfonamide Allergy Rash/Hives Verified 03/24/24 09:55 Antibiotics) cephalexin [From Keflex] AdvReac Chest Pain Verified 03/24/24 09:55 dust AdvReac runny Uncoded 03/24/24 09:55 nose, sneezing Physical Exam Vitals: Vital Signs Temp Pulse Pulse Resp BP BP Pulse Ox 03/24/24 09:24 97.6 F 60 14 148/51 95 03/24/24 08:52 97.7 F 55 L 22 148/51 97 03/24/24 01:23 97.6 F 58 L 18 138/61 96 03/23/24 23:46 64 18 134/43 99 03/23/24 21:45 64 18 03/23/24 21:39 62 18 03/23/24 20:43 55 L 18 148/67 99 03/23/24 20:30 56 L 18 148/67 100 Intake and Output 03/23/24 03/24/24 03/24/24 22:59 06:59 14:59 Intake Total 690 Output Total 850 Balance -160 Intake: Intake, IV Titration 150 Amount Levofloxacin 750Mg-D5w 150 Pmx 750 mg In Dextrose/ Water 1 150ml.bag @ 100 mls/hr IVPB DAILY [facility] Rx# :[id number] Oral 540 Output: Urine 850 Other: Voiding Method External Catheter Weight 109.316 kg Results CBC & Chem 7: 03/23/24 21:49 03/23/24 21:49 Labs: Abnormal Lab Results - Last 24 Hours (Table) 03/23/24 03/23/24 03/23/24 Range/Units 21:49 21:49 21:49 RBC 3.03 L (3.80-5.40) m/uL Hgb 9.8 L (11.4-16.0) gm/dL Hct 30.5 L (34.0-46.0) % MCV 100.6 H (80.0-100.0) fL Eosinophils # 0.9 H (0-0.7) k/uL Sodium 134 L (137-145) mmol/L Carbon Dioxide 32 H (22-30) mmol/L BUN 26 H (7-17) mg/dL Plasma Lactic Acid Samuel 0.6 L (0.7-2.0) mmol/L Total Protein 5.3 L (6.3-8.2) g/dL Albumin 3.0 L (3.5-5.0) g/dL Urine Nitrite (Negative) Ur Leukocyte Esterase (Negative) Urine WBC (0-5) /hpf Urine Bacteria (None) /hpf 03/23/24 Range/Units 22:36 RBC (3.80-5.40) m/uL Hgb (11.4-16.0) gm/dL Hct (34.0-46.0) % MCV (80.0-100.0) fL Eosinophils # (0-0.7) k/uL Sodium (137-145) mmol/L Carbon Dioxide (22-30) mmol/L BUN (7-17) mg/dL Plasma Lactic Acid Samuel (0.7-2.0) mmol/L Total Protein (6.3-8.2) g/dL Albumin (3.5-5.0) g/dL Urine Nitrite Positive H (Negative) Ur Leukocyte Esterase Large H (Negative) Urine WBC 23 H (0-5) /hpf Urine Bacteria Moderate H (None) /hpf
[2024-03-24] MEDS ORDERED: LORazepam 1 MG TAB PO SCH (21:00)
[2024-03-24] MEDS: ATORVASTATIN 40 MG TAB PO SCH (22:08)
[2024-03-24] MEDS: FERROUS SULFATE 325 MG TAB PO SCH (22:08)
[2024-03-24] MEDS: MONTELUKAST 10 MG TAB PO SCH (22:08)
[2024-03-24] MEDS: risperiDONE 0.25 MG TAB PO SCH (22:09)
[2024-03-25] MEDS: MELATONIN 3 MG TABLET PO PRN (01:19)
--- NOTE | 2024-03-25 15:21 | P.PN ---
Progress Note - Text Progress Note Date: 03/25/24 Chief Complaint: Not feeling well Pleasant 88-year-old patient follows Dr. Dong. Lives alone. Does use a walker. Stable medical conditions include fibromyalgia, GERD, hyperlipidemia, hypertension, rheumatoid arthritis, hypothyroid, anemia, CAD with stent. Patient not been feeling well for quite some time. Feels tired all the time. Good urine infections. Does take laxatives for a bowel movement though has not every day. Decreased appetite. Joints hurt her quite a bit. Does not sleep too well. She sees people sitting in the room. Sometimes talking. Her daughter is living with her right now sometimes hear her talking at night. Decreased appetite. Denies any fever and chills March 25: Patient was started on Risperdal at night. Slept well. Hallucinations greatly improved. A bit tired. On Levaquin. Blood cultures are growing gram-positive cocci in cultures. Could be contaminant. Hold off any change antibiotics for now as patient clinically better. Communicated with pharmacy Active Medications Acetaminophen (Acetaminophen Tab 325 Mg Tab) 650 mg PO Q6HR PRN PRN Reason: Mild Pain or Fever > 100.5 Hydrocodone Bitart/Acetaminophen (Hydrocodone/Apap 5-325mg 1 Each Tab) 1 each PO Q4HR PRN PRN Reason: Moderate Pain (Scale 4 to 6) Last Admin: 03/25/24 06:07 Dose: 1 each Aspirin (Aspirin 81 Mg) 81 mg PO DAILY [facility] Last Admin: 03/25/24 09:39 Dose: 81 mg Atorvastatin Calcium (Atorvastatin 40 Mg Tab) 40 mg PO HS [facility] Last Admin: 03/24/24 22:08 Dose: 40 mg Budesonide/Formoterol Fumarate (Symbicort 80-4.5 Mcg Inhaler) 2 puff INHALATION RT-BID [facility] Last Admin: 03/25/24 09:04 Dose: 2 puff Calcium Carbonate/Glycine (Calcium Carbonate 500 Mg Chewable) 1,000 mg PO Q4HR PRN PRN Reason: Dyspepsia Dapagliflozin (Dapagliflozin Propanediol 10 Mg Tablet) 10 mg PO DAILY [facility] Last Admin: 03/25/24 09:40 Dose: 10 mg Duloxetine HCl (Duloxetine Hcl 60 Mg Capsule.) 60 mg PO BID [facility] Last Admin: 03/25/24 09:39 Dose: 60 mg Enoxaparin Sodium (Enoxaparin 40 Mg/0.4 Ml Syringe) 40 mg SQ DAILY [facility] Last Admin: 03/25/24 09:39 Dose: 40 mg Famotidine (Famotidine 20 Mg Tab) 20 mg PO DAILY [facility] Last Admin: 03/25/24 09:39 Dose: 20 mg Ferrous Sulfate (Ferrous Sulfate 325 Mg Tab) 325 mg PO BID [facility] Last Admin: 03/25/24 09:40 Dose: 325 mg Folic Acid (Folic Acid 1 Mg Tab) 1 mg PO DAILY [facility] Last Admin: 03/25/24 09:48 Dose: 1 mg Lactulose (Lactulose 20 Gm/30 Ml Cup) 20 gm PO DAILY PRN PRN Reason: Constipation Levofloxacin (Levofloxacin 750 Mg Tab) 750 mg PO Q48H [facility] Levothyroxine Sodium (Levothyroxine 125 Mcg Tab) 125 mcg PO BID [facility] Last Admin: 03/25/24 09:39 Dose: 125 mcg Melatonin (Melatonin 3 Mg Tablet) 3 mg PO HS PRN PRN Reason: Insomnia Last Admin: 03/25/24 01:19 Dose: 3 mg Metoprolol Succinate (Metoprolol Succinate (Er) 25 Mg Tab.Er.24h) 25 mg PO DAILY [facility] Last Admin: 03/25/24 09:39 Dose: 25 mg Montelukast Sodium (Montelukast 10 Mg Tab) 10 mg PO HS [facility] Last Admin: 03/24/24 22:08 Dose: 10 mg Naloxone HCl (Naloxone 0.4 Mg/Ml 1 Ml Vial) 0.2 mg IV Q2M PRN PRN Reason: Opioid Reversal Ondansetron HCl (Ondansetron 4 Mg/2 Ml Vial) 4 mg IVP Q8HR PRN PRN Reason: Nausea And Vomiting Last Admin: 03/24/24 13:36 Dose: 4 mg Potassium Chloride (Potassium Chloride Er 10 Meq Tab.Er.Prt) 10 meq PO DAILY [facility] Last Admin: 03/25/24 09:40 Dose: 10 meq Ranolazine (Ranolazine 500 Mg Tab.Er.12h) 500 mg PO BID [facility] Last Admin: 03/25/24 10:32 Dose: 500 mg Risperidone (Risperidone 0.25 Mg Tab) 0.75 mg PO HS [facility] Last Admin: 03/24/24 22:09 Dose: 0.75 mg Spironolactone (Spironolactone 25 Mg Tab) 25 mg PO [id number] [facility] Last Admin: 03/24/24 10:57 Dose: 25 mg Social history: Lives alone. Uses a wheeled walker.. Currently daughter is living with her. Did smoke in the past. Rarely alcohol Physical examination: VITAL SIGNS: 97.4, 76, 17, 130 x 64, 95% on 2 L GENERAL: BMI 47.1, reclining bed looking better EYES: Pupils equal. Conjunctiva joel l. HEENT: External appearance of nose and ears normal, oral cavity grossly normal. NECK: JVD not raised; masses not palpable. HEART: First and second heart sounds are normal; no edema. LUNGS: Respiratory rate normal; decreased breath sounds. ABDOMEN: Soft, nontender, liver spleen not palpable, no masses palpable. PSYCH: [Alert and oriented x3; mood and affect improved. MUSCULOSKELETAL:No Clubbing/cyanosis;muscles-grossly intact. OA INVESTIGATIONS, reviewed in the clinical context: Blood cultures: Gram-positive cocci in clusters March 23, 2024: White count 6.5 hemoglobin 9.8 platelets 204 sodium 134 potassium 5.1 BUN 26 creatinine 0.95 UA positive for nitrite, leukoesterase, WBC 23 Influenza type A, type B, RSV, COVID-19: Not detected EKG tracing personally reviewed by me-sinus bradycardia. Chest x-ray film personally reviewed by me-a bit underpenetrated due to body mass cardiomegaly questionable venous prominence Assessment plan: -Acute UTI with cystitis, recurrent Levaquin -Auditory and visual hallucinations.: Better *. 0.75 mg Risperdal at night. Sleep hygiene discussed with the patient. -Blood cultures positive for gram-positive cocci in clusters. Possible contamination Hold off change of antibiotics for now as patient clinically doing better -COPD no prior smoker Advair. 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 Continue current treatment plan. Past Medical History Past Medical History: Asthma, Fibromyalgia, GERD/Reflux, Hyperlipidemia, Hypertension, Rheumatoid Arthritis (RA), Thyroid Disorder Additional Past Medical History / Comment(s): anemia History of Any Multi-Drug Resistant Organisms: None Reported Past Surgical History: Appendectomy, Bariatric Surgery, Cholecystectomy, Heart Catheterization With Stent, Hysterectomy, Orthopedic Surgery Additional Past Surgical History / Comment(s): lap band 05/06/2004, left shoulder replaced, Right ear growth, cardiac Stent Past Anesthesia/Blood Transfusion Reactions: No Reported Reaction Date of Last Stent Placement:: 03/19/2010 Past Psychological History: Depression Smoking Status: Former smoker
[2024-03-25] MEDS: CALCIUM CARBONATE 500 MG CHEWABLE PO PRN (18:22)
[2024-03-26 14:40] VITALS: BMI 47.0
--- NOTE | 2024-03-26 15:51 | P.PN ---
Progress Note - Text Progress Note Date: 03/26/24 Chief Complaint: Not feeling well Pleasant 88-year-old patient follows Dr. Dong. Lives alone. Does use a walker. Stable medical conditions include fibromyalgia, GERD, hyperlipidemia, hypertension, rheumatoid arthritis, hypothyroid, anemia, CAD with stent. Patient not been feeling well for quite some time. Feels tired all the time. Good urine infections. Does take laxatives for a bowel movement though has not every day. Decreased appetite. Joints hurt her quite a bit. Does not sleep too well. She sees people sitting in the room. Sometimes talking. Her daughter is living with her right now sometimes hear her talking at night. Decreased appetite. Denies any fever and chills March 25: Patient was started on Risperdal at night. Slept well. Hallucinations greatly improved. A bit tired. On Levaquin. Blood cultures are growing gram-positive cocci in cultures. Could be contaminant. Hold off any change antibiotics for now as patient clinically better. Communicated with pharmacy March 26: Resting in bed. No hallucinations. Feels tired. Urine culture growing ESBL E. coli. On Levaquin. No fevers. Does not feel ready to go home. Blood culture appears to be contaminant Active Medications Acetaminophen (Acetaminophen Tab 325 Mg Tab) 650 mg PO Q6HR PRN PRN Reason: Mild Pain or Fever > 100.5 Hydrocodone Bitart/Acetaminophen (Hydrocodone/Apap 5-325mg 1 Each Tab) 1 each PO Q4HR PRN PRN Reason: Moderate Pain (Scale 4 to 6) Last Admin: 03/25/24 20:55 Dose: 1 each Aspirin (Aspirin 81 Mg) 81 mg PO DAILY [facility] Last Admin: 03/26/24 09:17 Dose: 81 mg Atorvastatin Calcium (Atorvastatin 40 Mg Tab) 40 mg PO HS [facility] Last Admin: 03/25/24 20:44 Dose: 40 mg Budesonide/Formoterol Fumarate (Symbicort 80-4.5 Mcg Inhaler) 2 puff INHALATION RT-BID [facility] Last Admin: 03/26/24 09:11 Dose: Not Given Calcium Carbonate/Glycine (Calcium Carbonate 500 Mg Chewable) 1,000 mg PO Q4HR PRN PRN Reason: Dyspepsia Last Admin: 03/25/24 18:22 Dose: 1,000 mg Dapagliflozin (Dapagliflozin Propanediol 10 Mg Tablet) 10 mg PO DAILY [facility] Last Admin: 03/26/24 09:17 Dose: 10 mg Duloxetine HCl (Duloxetine Hcl 60 Mg Capsule.Dr) 60 mg PO BID [facility] Last Admin: 03/26/24 10:52 Dose: 60 mg Enoxaparin Sodium (Enoxaparin 40 Mg/0.4 Ml Syringe) 40 mg SQ DAILY [facility] Last Admin: 03/26/24 09:17 Dose: 40 mg Famotidine (Famotidine 20 Mg Tab) 20 mg PO DAILY [facility] Last Admin: 03/26/24 09:18 Dose: 20 mg Ferrous Sulfate (Ferrous Sulfate 325 Mg Tab) 325 mg PO BID [facility] Last Admin: 03/26/24 10:52 Dose: Not Given Folic Acid (Folic Acid 1 Mg Tab) 1 mg PO DAILY [facility] Last Admin: 03/26/24 10:52 Dose: Not Given Lactulose (Lactulose 20 Gm/30 Ml Cup) 20 gm PO DAILY PRN PRN Reason: Constipation Levofloxacin (Levofloxacin 750 Mg Tab) 750 mg PO Q48H [facility] Levothyroxine Sodium (Levothyroxine 125 Mcg Tab) 125 mcg PO BID [facility] Last Admin: 03/26/24 09:17 Dose: 125 mcg Melatonin (Melatonin 3 Mg Tablet) 3 mg PO HS PRN PRN Reason: Insomnia Last Admin: 03/25/24 23:34 Dose: 3 mg Metoprolol Succinate (Metoprolol Succinate (Er) 25 Mg Tab.Er.24h) 25 mg PO DAILY [facility] Last Admin: 03/26/24 10:52 Dose: 25 mg Montelukast Sodium (Montelukast 10 Mg Tab) 10 mg PO HS [facility] Last Admin: 03/25/24 20:44 Dose: 10 mg Naloxone HCl (Naloxone 0.4 Mg/Ml 1 Ml Vial) 0.2 mg IV Q2M PRN PRN Reason: Opioid Reversal Ondansetron HCl (Ondansetron 4 Mg/2 Ml Vial) 4 mg IVP Q8HR PRN PRN Reason: Nausea And Vomiting Last Admin: 03/26/24 08:52 Dose: 4 mg Potassium Chloride (Potassium Chloride Er 10 Meq Tab.Er.Prt) 10 meq PO DAILY [facility] Last Admin: 03/26/24 10:52 Dose: 10 meq Ranolazine (Ranolazine 500 Mg Tab.Er.12h) 500 mg PO BID [facility] Last Admin: 03/26/24 10:52 Dose: 500 mg Risperidone (Risperidone 0.25 Mg Tab) 0.75 mg PO HS [facility] Last Admin: 03/25/24 20:45 Dose: 0.75 mg Spironolactone (Spironolactone 25 Mg Tab) 25 mg PO [id number]@0900 [facility] Last Admin: 03/24/24 10:57 Dose: 25 mg Social history: Lives alone. Uses a wheeled walker.. Currently daughter is living with her. D id smoke in the past. Rarely alcohol Physical examination: VITAL SIGNS: 98.2, 61, 17, 123 x 56, 98% on 2 L GENERAL: BMI 47.1, reclining bed l with tired EYES: Pupils equal. Conjunctiva joel l. HEENT: External appearance of nose and ears normal, oral cavity grossly normal. NECK: JVD not raised; masses not palpable. HEART: First and second heart sounds are normal; no edema. LUNGS: Respiratory rate normal; decreased breath sounds. ABDOMEN: Soft, nontender, liver spleen not palpable, no masses palpable. PSYCH: [Alert and oriented x3; mood and affect improved. MUSCULOSKELETAL:No Clubbing/cyanosis;muscles-grossly intact. OA INVESTIGATIONS, reviewed in the clinical context: Urine culture: ESBL E. coli/Proteus Mirabella's Blood cultures: Gram-positive cocci in clusters-Staph epidermidis March 23, 2024: White count 6.5 hemoglobin 9.8 platelets 204 sodium 134 potassium 5.1 BUN 26 creatinine 0.95 UA positive for nitrite, leukoesterase, WBC 23 Influenza type A, type B, RSV, COVID-19: Not detected EKG tracing personally reviewed by me-sinus bradycardia. Chest x-ray film personally reviewed by me-a bit underpenetrated due to body mass cardiomegaly questionable venous prominence Assessment plan: -Acute UTI with cystitis, E. coli/ESBL recurrent Levaquin -Auditory and visual hallucinations.: Improved *. 0.75 mg Risperdal at night. Sleep hygiene discussed with the patient. -Blood cultures positive for gram-positive cocci in clusters. Possible contamination Hold off change of antibiotics for now as patient clinically doing better -COPD no prior smoker Advair. 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 Discussed. Past Medical History Past Medical History: Asthma, Fibromyalgia, GERD/Reflux, Hyperlipidemia, Hypertension, Rheumatoid Arthritis (RA), Thyroid Disorder Additional Past Medical History / Comment(s): anemia History of Any Multi-Drug Resistant Organisms: None Reported Past Surgical History: Appendectomy, Bariatric Surgery, Cholecystectomy, Heart Catheterization With Stent, Hysterectomy, Orthopedic Surgery Additional Past Surgical History / Comment(s): lap band 05/06/2004, left shoulder replaced, Right ear growth, cardiac Stent Past Anesthesia/Blood Transfusion Reactions: No Reported Reaction Date of Last Stent Placement:: 03/19/2010 Past Psychological History: Depression Smoking Status: Former smoker
[2024-03-26] MEDS: ACETAMINOPHEN TAB 325 MG TAB PO PRN (20:06)
[2024-03-27] MEDS: LEVOFLOXACIN 750 MG TAB PO SCH (09:40)
--- NOTE | 2024-03-27 14:12 | P.PN ---
Progress Note - Text Progress Note Date: 03/27/24 Chief Complaint: Not feeling well Pleasant 88-year-old patient follows Dr. Dong. Lives alone. Does use a walker. Stable medical conditions include fibromyalgia, GERD, hyperlipidemia, hypertension, rheumatoid arthritis, hypothyroid, anemia, CAD with stent. Patient not been feeling well for quite some time. Feels tired all the time. Good urine infections. Does take laxatives for a bowel movement though has not every day. Decreased appetite. Joints hurt her quite a bit. Does not sleep too well. She sees people sitting in the room. Sometimes talking. Her daughter is living with her right now sometimes hear her talking at night. Decreased appetite. Denies any fever and chills March 25: Patient was started on Risperdal at night. Slept well. Hallucinations greatly improved. A bit tired. On Levaquin. Blood cultures are growing gram-positive cocci in cultures. Could be contaminant. Hold off any change antibiotics for now as patient clinically better. Communicated with pharmacy March 26: Resting in bed. No hallucinations. Feels tired. Urine culture growing ESBL E. coli. On Levaquin. No fevers. Does not feel ready to go home. Blood culture appears to be contaminant March 27: Laying in bed. Feels rather tired. Does not feel she will be able to manage at home. Her daughter is currently with her. PT OT socially responsible investment adviser for rehab has been consulted. On oral Levaquin. Sleep hygiene cycle discussed with the patient. Nursing instructions communicated Has had no hallucinations Active Medications Acetaminophen (Acetaminophen Tab 325 Mg Tab) 650 mg PO Q6HR PRN PRN Reason: Mild Pain or Fever > 100.5 Last Admin: 03/26/24 20:06 Dose: 650 mg Hydrocodone Bitart/Acetaminophen (Hydrocodone/Apap 5-325mg 1 Each Tab) 1 each PO Q4HR PRN PRN Reason: Moderate Pain (Scale 4 to 6) Last Admin: 03/25/24 20:55 Dose: 1 each Aspirin (Aspirin 81 Mg) 81 mg PO DAILY [facility] Last Admin: 03/27/24 09:40 Dose: 81 mg Atorvastatin Calcium (Atorvastatin 40 Mg Tab) 40 mg PO HS [facility] Last Admin: 03/26/24 20:06 Dose: 40 mg Budesonide/Formoterol Fumarate (Symbicort 80-4.5 Mcg Inhaler) 2 puff INHALATION RT-BID [facility] Last Admin: 03/27/24 08:24 Dose: 2 puff Calcium Carbonate/Glycine (Calcium Carbonate 500 Mg Chewable) 1,000 mg PO Q4HR PRN PRN Reason: Dyspepsia Last Admin: 03/25/24 18:22 Dose: 1,000 mg Dapagliflozin (Dapagliflozin Propanediol 10 Mg Tablet) 10 mg PO DAILY [facility] Last Admin: 03/27/24 09:40 Dose: 10 mg Duloxetine HCl (Duloxetine Hcl 60 Mg Capsule.Dr) 60 mg PO BID [facility] Last Admin: 03/27/24 09:40 Dose: 60 mg Enoxaparin Sodium (Enoxaparin 40 Mg/0.4 Ml Syringe) 40 mg SQ DAILY [facility] Last Admin: 03/27/24 09:41 Dose: 40 mg Famotidine (Famotidine 20 Mg Tab) 20 mg PO DAILY [facility] Last Admin: 03/27/24 09:41 Dose: 20 mg Ferrous Sulfate (Ferrous Sulfate 325 Mg Tab) 325 mg PO BID [facility] Last Admin: 03/27/24 09:40 Dose: 325 mg Folic Acid (Folic Acid 1 Mg Tab) 1 mg PO DAILY [facility] Last Admin: 03/27/24 09:40 Dose: 1 mg Lactulose (Lactulose 20 Gm/30 Ml Cup) 20 gm PO DAILY PRN PRN Reason: Constipation Levofloxacin (Levofloxacin 750 Mg Tab) 750 mg PO Q48H [facility] Last Admin: 03/27/24 09:40 Dose: 750 mg Levothyroxine Sodium (Levothyroxine 125 Mcg Tab) 125 mcg PO BID [facility] Last Admin: 03/27/24 09:40 Dose: 125 mcg Melatonin (Melatonin 3 Mg Tablet) 3 mg PO HS PRN PRN Reason: Insomnia Last Admin: 03/25/24 23:34 Dose: 3 mg Metoprolol Succinate (Metoprolol Succinate (Er) 25 Mg Tab.Er.24h) 25 mg PO DAILY [facility] Last Admin: 03/27/24 09:40 Dose: 25 mg Montelukast Sodium (Montelukast 10 Mg Tab) 10 mg PO HS [facility] Last Admin: 03/26/24 20:06 Dose: 10 mg Naloxone HCl (Naloxone 0.4 Mg/Ml 1 Ml Vial) 0.2 mg IV Q2M PRN PRN Reason: Opioid Reversal Ondansetron HCl (Ondansetron 4 Mg/2 Ml Vial) 4 mg IVP Q8HR PRN PRN Reason: Nausea And Vomiting Last Admin: 03/26/24 08:52 Dose: 4 mg Potassium Chloride (Potassium Chloride Er 10 Meq Tab.Er.Prt) 10 meq PO DAILY [facility] Last Admin: 03/27/24 09:40 Dose: 10 meq Ranolazine (Ranolazine 500 Mg Tab.Er.12h) 500 mg PO BID [facility] Last Admin: 03/27/24 09:41 Dose: 500 mg Risperidone (Risperidone 0.25 Mg Tab) 0.75 mg PO HS [facility] Last Admin: 03/26/24 20:06 Dose: 0.75 mg Spironolactone (Spironolactone 25 Mg Tab) 25 mg PO MoWeFr@0900 [facility] Last Admin: 03/27/24 09:40 Dose: 25 mg Social history: Lives alone. Uses a wheeled walker.. Currently daughter is living with her. Did smoke in the past. Rarely alcohol Physical examination: VITAL SIGNS: 97.8, 57, 15, 147 x 71, 100% 2 L GENERAL: BMI 47.1, being in bed, tired EYES: Pupils equal. Conjunctiva joel l. HEENT: External appearance of nose and ears normal, oral cavity grossly normal. NECK: JVD not raised; masses not palpable. HEART: First and second heart sounds are normal; no edema. LUNGS: Respiratory rate normal; decreased breath sounds. ABDOMEN: Soft, nontender, liver spleen not palpable, no masses palpable. PSYCH: [Alert and oriented x3; mood and affect tired MUSCULOSKELETAL:No Clubbing/cyanosis;muscles-grossly intact. OA INVESTIGATIONS, reviewed in the clinical context: Urine culture: ESBL E. coli/Proteus Mirabella's Blood cultures: Gram-positive cocci in clusters-Staph epidermidis March 23, 2024: White count 6.5 hemoglobin 9.8 platelets 204 sodium 134 potassium 5.1 BUN 26 creatinine 0.95 UA positive for nitrite, leukoesterase, WBC 23 Influenza type A, type B, RSV, COVID-19: Not detected EKG tracing personally reviewed by me-sinus bradycardia. Chest x-ray film personally reviewed by me-a bit underpenetrated due to body mass cardiomegaly questionable venous prominence Assessment plan: -Acute UTI with cystitis, E. coli/ESBL recurrent Levaquin -Auditory and visual hallucinations.: Resolved *. 0.75 mg Risperdal at night. Sleep hygiene discussed with the patient. -Blood cultures positive for gram-positive cocci in clusters. Possible contamination Hold off change of antibiotics for now as patient clinically doing better -COPD no prior smoker Advair. -Acute on chronic medical debility. PT OT. 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 PT OT. Consult socially responsible investment adviser for possible rehab pl acement. Past Medical History Past Medical History: Asthma, Fibromyalgia, GERD/Reflux, Hyperlipidemia, Hypertension, Rheumatoid Arthritis (RA), Thyroid Disorder Additional Past Medical History / Comment(s): anemia History of Any Multi-Drug Resistant Organisms: None Reported Past Surgical History: Appendectomy, Bariatric Surgery, Cholecystectomy, Heart Catheterization With Stent, Hysterectomy, Orthopedic Surgery Additional Past Surgical History / Comment(s): lap band 05/06/2004, left shoulder replaced, Right ear growth, cardiac Stent Past Anesthesia/Blood Transfusion Reactions: No Reported Reaction Date of Last Stent Placement:: 03/19/2010 Past Psychological History: Depression Smoking Status: Former smoker
[2024-03-28 05:35] LABS: Basophils % (A) 0 %; Eosinophils # (A) 0.6 k/uL (0-0.7); Eosinophils % (A) 9 %; HCT 25.9 % (34.0-46.0); Hypochromasia Marked; Lymphocytes % (A) 16 %; MCH 32.6 pg (25.0-35.0); MCHC 32.2 g/dL (31.0-37.0); MCV 101.3 fL (80.0-100.0); Macrocytosis Slight; Mean Platelet Volume 8.7; Monocytes # (A) 0.4 k/uL (0-1.0); Monocytes % (A) 7 %; Neutrophils # (A) 3.9 k/uL (1.3-7.7); Neutrophils % (A) 65 %; Platelet Count 173 k/uL (150-450); RBC 2.56 m/uL (3.80-5.40); RDW 13.7 % (11.5-15.5)
[2024-03-28 05:48] LABS: African American GFR (CKD) 45 (>60 ml/min/1.73 sqM); Anion Gap 1 mmol/L; Blood Urea Nitrogen 26 mg/dL (7-17); Calcium 8.7 mg/dL (8.4-10.2); Carbon Dioxide 33 mmol/L (22-30); Chloride 98 mmol/L (98-107); Glucose 103 mg/dL (74-99); Non-African American GFR(CKD) 39 (>60 ml/min/1.73 sqM); Potassium 4.7 mmol/L (3.5-5.1); Sodium 132 mmol/L (137-145)
[2024-03-28 06:36] LABS: HGB 8.3 gm/dL (11.4-16.0)
[2024-03-28] MEDS: LACTULOSE 20 GM/30 ML CUP PO PRN (11:51)
--- NOTE | 2024-03-28 14:57 | P.PN ---
Progress Note - Text Progress Note Date: 03/28/24 Chief Complaint: Not feeling well Pleasant 88-year-old patient follows Dr. Dong. Lives alone. Does use a walker. Stable medical conditions include fibromyalgia, GERD, hyperlipidemia, hypertension, rheumatoid arthritis, hypothyroid, anemia, CAD with stent. Patient not been feeling well for quite some time. Feels tired all the time. Good urine infections. Does take laxatives for a bowel movement though has not every day. Decreased appetite. Joints hurt her quite a bit. Does not sleep too well. She sees people sitting in the room. Sometimes talking. Her daughter is living with her right now sometimes hear her talking at night. Decreased appetite. Denies any fever and chills March 25: Patient was started on Risperdal at night. Slept well. Hallucinations greatly improved. A bit tired. On Levaquin. Blood cultures are growing gram-positive cocci in cultures. Could be contaminant. Hold off any change antibiotics for now as patient clinically better. Communicated with pharmacy March 26: Resting in bed. No hallucinations. Feels tired. Urine culture growing ESBL E. coli. On Levaquin. No fevers. Does not feel ready to go home. Blood culture appears to be contaminant March 27: Laying in bed. Feels rather tired. Does not feel she will be able to manage at home. Her daughter is currently with her. PT OT social psychologist for rehab has been consulted. On oral Levaquin. Sleep hygiene cycle discussed with the patient. Nursing instructions communicated Has had no hallucinations March 28: In bed. Tired. Seen by physical therapy. Walked about 3 feet with a rolling walker. Spoke to social psychologist. Being evaluated for rehab. Patient slept well last night. Call p.m. dose of Risperdal 2.5 mg nightly. Sleep hygiene reinforced. To stay till Wednesday to qualify for rehab Active Medications Acetaminophen (Acetaminophen Tab 325 Mg Tab) 650 mg PO Q6HR PRN PRN Reason: Mild Pain or Fever > 100.5 Last Admin: 03/26/24 20:06 Dose: 650 mg Hydrocodone Bitart/Acetaminophen (Hydrocodone/Apap 5-325mg 1 Each Tab) 1 each PO Q4HR PRN PRN Reason: Moderate Pain (Scale 4 to 6) Last Admin: 03/27/24 18:28 Dose: 1 each Aspirin (Aspirin 81 Mg) 81 mg PO DAILY [facility] Last Admin: 03/28/24 09:16 Dose: 81 mg Atorvastatin Calcium (Atorvastatin 40 Mg Tab) 40 mg PO HS [facility] Last Admin: 03/27/24 21:53 Dose: 40 mg Budesonide/Formoterol Fumarate (Symbicort 80-4.5 Mcg Inhaler) 2 puff INHALATION RT-BID [facility] Last Admin: 03/28/24 08:41 Dose: 2 puff Calcium Carbonate/Glycine (Calcium Carbonate 500 Mg Chewable) 1,000 mg PO Q4HR PRN PRN Reason: Dyspepsia Last Admin: 03/25/24 18:22 Dose: 1,000 mg Dapagliflozin (Dapagliflozin Propanediol 10 Mg Tablet) 10 mg PO DAILY [facility] Last Admin: 03/28/24 09:16 Dose: 10 mg Duloxetine HCl (Duloxetine Hcl 60 Mg Capsule.Dr) 60 mg PO BID [facility] Last Admin: 03/28/24 09:16 Dose: 60 mg Enoxaparin Sodium (Enoxaparin 40 Mg/0.4 Ml Syringe) 40 mg SQ DAILY [facility] Last Admin: 03/28/24 09:17 Dose: 40 mg Famotidine (Famotidine 20 Mg Tab) 20 mg PO DAILY [facility] Last Admin: 03/28/24 09:17 Dose: 20 mg Ferrous Sulfate (Ferrous Sulfate 325 Mg Tab) 325 mg PO BID [facility] Last Admin: 03/28/24 09:17 Dose: 325 mg Folic Acid (Folic Acid 1 Mg Tab) 1 mg PO DAILY [facility] Last Admin: 03/28/24 09:16 Dose: 1 mg Lactulose (Lactulose 20 Gm/30 Ml Cup) 20 gm PO DAILY PRN PRN Reason: Constipation Last Admin: 03/28/24 11:51 Dose: 20 gm Levofloxacin (Levofloxacin 750 Mg Tab) 750 mg PO Q48H [facility] Last Admin: 03/27/24 09:40 Dose: 750 mg Levothyroxine Sodium (Levothyroxine 125 Mcg Tab) 125 mcg PO BID [facility] Last Admin: 03/28/24 09:15 Dose: 125 mcg Melatonin (Melatonin 3 Mg Tablet) 3 mg PO HS PRN PRN Reason: Insomnia Last Admin: 03/25/24 23:34 Dose: 3 mg Metoprolol Succinate (Metoprolol Succinate (Er) 25 Mg Tab.Er.24h) 25 mg PO DAILY [facility] Last Admin: 03/28/24 09:17 Dose: 25 mg Montelukast Sodium (Montelukast 10 Mg Tab) 10 mg PO HS [facility] Last Admin: 03/27/24 21:54 Dose: 10 mg Naloxone HCl (Naloxone 0.4 Mg/Ml 1 Ml Vial) 0.2 mg IV Q2M PRN PRN Reason: Opioid Reversal Ondansetron HCl (Ondansetron 4 Mg/2 Ml Vial) 4 mg IVP Q8HR PRN PRN Reason: Nausea And Vomiting Last Admin: 03/26/24 08:52 Dose: 4 mg Potassium Chloride (Potassium Chloride Er 10 Meq Tab.Er.Prt) 10 meq PO DAILY [facility] Last Admin: 03/28/24 09:16 Dose: 10 meq Ranolazine (Ranolazine 500 Mg Tab.Er.12h) 500 mg PO BID [facility] Last Admin: 03/28/24 09:15 Dose: 500 mg Risperidone (Risperidone 0.5 Mg Tab) 0.5 mg PO [facility] Spironolactone (Spironolactone 25 Mg Tab) 25 mg PO [id number] [facility] Last Admin: 03/27/24 09:40 Dose: 25 mg Social history: Lives alone. Uses a wheeled walker.. Currently daughter is living with her. Did smoke in the past. Rarely alcohol Physical examination: VITAL SIGNS: 98.4, 66, 17, 124 x 61, 97% on 2 L GENERAL: BMI 47.1, laying in bed, tired EYES: Pupils equal. Conjunctiva joel l. HEENT: External appearance of nose and ears normal, oral cavity grossly normal. NECK: JVD not raised; masses not palpable. HEART: First and second heart sounds are normal; no edema. LUNGS: Respiratory rate normal; decreased breath sounds. ABDOMEN: Soft, nontender, liver spleen not palpable, no masses palpable. PSYCH: [Alert and oriented x3; mood and affect tired MUSCULOSKELETAL:No Clubbing/cyanosis;muscles-grossly intact. OA INVESTIGATIONS, reviewed in the clinical context: March 28: White count 6 hemoglobin 8.3 platelets 173 potassium 4.7 BUN 26 creatinine 1.23 Urine culture: ESBL E. coli/Proteus Mirabella's Blood cultures: Gram-positive cocci in clusters-Staph epidermidis March 23, 2024: White count 6.5 hemoglobin 9.8 platelets 204 sodium 134 potassium 5.1 BUN 26 creatinine 0.95 UA positive for nitrite, leukoesterase, WBC 23 Influenza type A, type B, RSV, COVID-19: Not detected EKG tracing personally reviewed by me-sinus bradycardia. Chest x-ray film personally reviewed by me-a bit underpenetrated due to body mass cardiomegaly questionable venous prominence Assessment plan: -Acute UTI with cystitis, E. coli/ESBL recurrent Levaquin -Auditory and visual hallucinations.: Resolved *Decreased. 0.50 mg Risperdal at night. Sleep hygiene d reinforced -Blood cultures positive for gram-positive cocci in clusters. Possible contamination Hold off change of antibiotics for now as patient clinically doing better -COPD no prior smoker Advair. -Acute on chronic medical debility. PT OT. 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 For subacute rehab. Patient to stay until Wednesday to qualify for rehab. Stop Aldactone. Stop potassium supplement. Past Medical History Past Medical History: Asthma, Fibromyalgia, GERD/Reflux, Hyperlipidemia, Hypertension, Rheumatoid Arthritis (RA), Thyroid Disorder Additional Past Medical History / Comment(s): anemia History of Any Multi-Drug Resistant Organisms: None Reported Past Surgical History: Appendectomy, Bariatric Surgery, Cholecystectomy, Heart Catheterization With Stent, Hysterectomy, Orthopedic Surgery Additional Past Surgical History / Comment(s): lap band 05/06/2004, left shoulder replaced, Right ear growth, cardiac Stent Past Anesthesia/Blood Transfusion Reactions: No Reported Reaction Date of Last Stent Placement:: 03/19/2010 Past Psychological History: Depression Smoking Status: Former smoker
[2024-03-28] MEDS: SODIUM CHLORIDE 0.45% 1,000 ML IV SCH (17:41)
[2024-03-28] MEDS: PANTOPRAZOLE 40 MG TABLET PO SCH (17:41)
[2024-03-28] MEDS: risperiDONE 0.5 MG TAB PO SCH (20:18)
[2024-03-29 10:12] LABS: % Iron Saturation 24.88 (12.00-45.00)
--- NOTE | 2024-03-29 21:49 | P.PN ---
Progress Note - Text Progress Note Date: 03/29/24 Chief Complaint: Not feeling well Pleasant 88-year-old patient follows Dr. Dong. Lives alone. Does use a walker. Stable medical conditions include fibromyalgia, GERD, hyperlipidemia, hypertension, rheumatoid arthritis, hypothyroid, anemia, CAD with stent. Patient not been feeling well for quite some time. Feels tired all the time. Good urine infections. Does take laxatives for a bowel movement though has not every day. Decreased appetite. Joints hurt her quite a bit. Does not sleep too well. She sees people sitting in the room. Sometimes talking. Her daughter is living with her right now sometimes hear her talking at night. Decreased appetite. Denies any fever and chills March 25: Patient was started on Risperdal at night. Slept well. Hallucinations greatly improved. A bit tired. On Levaquin. Blood cultures are growing gram-positive cocci in cultures. Could be contaminant. Hold off any change antibiotics for now as patient clinically better. Communicated with pharmacy March 26: Resting in bed. No hallucinations. Feels tired. Urine culture growing ESBL E. coli. On Levaquin. No fevers. Does not feel ready to go home. Blood culture appears to be contaminant March 27: Laying in bed. Feels rather tired. Does not feel she will be able to manage at home. Her daughter is currently with her. PT OT medical social worker for rehab has been consulted. On oral Levaquin. Sleep hygiene cycle discussed with the patient. Nursing instructions communicated Has had no hallucinations March 3: In bed. Tired. Seen by physical therapy. Walked about 3 feet with a rolling walker. Spoke to medical social worker. Being evaluated for rehab. Patient slept well last night. Call p.m. dose of Risperdal 2.5 mg nightly. Sleep hygiene reinforced. To stay till Wednesday to qualify for rehab March 29: In bed. Tired. Pending rehab. Discussed with patient. No new issues Active Medications Acetaminophen (Acetaminophen Tab 325 Mg Tab) 650 mg PO Q6HR PRN PRN Reason: Mild Pain or Fever > 100.5 Last Admin: 03/29/24 20:00 Dose: 650 mg Hydrocodone Bitart/Acetaminophen (Hydrocodone/Apap 5-325mg 1 Each Tab) 1 each PO Q4HR PRN PRN Reason: Moderate Pain (Scale 4 to 6) Last Admin: 03/28/24 20:10 Dose: 1 each Aspirin (Aspirin 81 Mg) 81 mg PO DAILY [facility] Last Admin: 03/29/24 10:16 Dose: 81 mg Atorvastatin Calcium (Atorvastatin 40 Mg Tab) 40 mg PO HS [facility] Last Admin: 03/29/24 20:00 Dose: 40 mg Budesonide/Formoterol Fumarate (Symbicort 80-4.5 Mcg Inhaler) 2 puff INHALATION RT-BID [facility] Last Admin: 03/29/24 20:40 Dose: 2 puff Calcium Carbonate/Glycine (Calcium Carbonate 500 Mg Chewable) 1,000 mg PO Q4HR PRN PRN Reason: Dyspepsia Last Admin: 03/25/24 18:22 Dose: 1,000 mg Dapagliflozin (Dapagliflozin Propanediol 10 Mg Tablet) 10 mg PO DAILY [facility] Last Admin: 03/29/24 10:17 Dose: 10 mg Duloxetine HCl (Duloxetine Hcl 60 Mg Capsule.Dr) 60 mg PO BID [facility] Last Admin: 03/29/24 20:00 Dose: 60 mg Enoxaparin Sodium (Enoxaparin 40 Mg/0.4 Ml Syringe) 40 mg SQ DAILY [facility] Last Admin: 03/29/24 10:17 Dose: 40 mg Famotidine (Famotidine 20 Mg Tab) 20 mg PO DAILY [facility] Last Admin: 03/29/24 10:17 Dose: 20 mg Ferrous Sulfate (Ferrous Sulfate 325 Mg Tab) 325 mg PO BID [facility] Last Admin: 03/29/24 20:00 Dose: 325 mg Folic Acid (Folic Acid 1 Mg Tab) 1 mg PO DAILY [facility] Last Admin: 03/29/24 10:17 Dose: 1 mg Lactulose (Lactulose 20 Gm/30 Ml Cup) 20 gm PO DAILY PRN PRN Reason: Constipation Last Admin: 03/28/24 11:51 Dose: 20 gm Levofloxacin (Levofloxacin 750 Mg Tab) 750 mg PO Q48H [facility] Last Admin: 03/29/24 10:16 Dose: 750 mg Levothyroxine Sodium (Levothyroxine 125 Mcg Tab) 125 mcg PO BID [facility] Last Admin: 03/29/24 20:00 Dose: 125 mcg Melatonin (Melatonin 3 Mg Tablet) 3 mg PO HS PRN PRN Reason: Insomnia Last Admin: 03/28/24 22:34 Dose: 3 mg Metoprolol Succinate (Metoprolol Succinate (Er) 25 Mg Tab.Er.24h) 25 mg PO DAILY [facility] Last Admin: 03/29/24 10:17 Dose: 25 mg Montelukast Sodium (Montelukast 10 Mg Tab) 10 mg PO [facility] Last Admin: 03/29/24 20:00 Dose: 10 mg Naloxone HCl (Naloxone 0.4 Mg/Ml 1 Ml Vial) 0.2 mg IV Q2M PRN PRN Reason: Opioid Reversal Ondansetron HCl (Ondansetron 4 Mg/2 Ml Vial) 4 mg IVP Q8HR PRN PRN Reason: Nausea And Vomiting Last Admin: 03/26/24 08:52 Dose: 4 mg Pantoprazole Sodium (Pantoprazole 40 Mg Tablet) 40 mg PO [facility] Last Admin: 03/29/24 10:17 Dose: 40 mg Ranolazine (Ranolazine 500 Mg Tab.Er.12h) 500 mg PO BID [facility] Last Admin: 03/29/24 20:00 Dose: 500 mg Risperidone (Risperidone 0.5 Mg Tab) 0.5 mg PO [facility] Last Admin: 03/29/24 20:00 Dose: 0.5 mg Social history: Lives alone. Uses a wheeled walker.. Currently daughter is living with her. Did smoke in the past. Rarely alcohol Physical examination: VITAL SIGNS: 97.8, 63, 18, 120/65, 97% on 2 L GENERAL: BMI 47.1, laying in bed, tired EYES: Pupils equal. Conjunctiva joel l. HEENT: External appearance of nose and ears normal, oral cavity grossly normal. NECK: JVD not raised; masses not palpable. HEART: First and second heart sounds are normal; no edema. LUNGS: Respiratory rate normal; decreased breath sounds. ABDOMEN: Soft, nontender, liver spleen not palpable, no masses palpable. PSYCH: [Alert and oriented x3; mood and affect tired MUSCULOSKELETAL:No Clubbing/cyanosis;muscles-grossly intact. OA INVESTIGATIONS, reviewed in the clinical context: March 28: White count 6 hemoglobin 8.3 platelets 173 potassium 4.7 BUN 26 creatinine 1.23 Urine culture: ESBL E. coli/Proteus Mirabella's Blood cultures: Gram-positive cocci in clusters-Staph epidermidis March 23, 2024: White count 6.5 hemoglobin 9.8 platelets 204 sodium 134 potassium 5.1 BUN 26 creatinine 0.95 UA positive for nitrite, leukoesterase, WBC 23 Influenza type A, type B, RSV, COVID-19: Not detected EKG tracing personally reviewed by me-sinus bradycardia. Chest x-ray film personally reviewed by me-a bit underpenetrated due to body mass cardiomegaly questionable venous prominence Assessment plan: -Acute UTI with cystitis, E. coli/ESBL recurrent Levaquin -Auditory and visual hallucinations.: Resolved 0.50 mg Risperdal at night. Sleep hygiene -Blood cultures positive for gram-positive cocci in clusters. Likely contamination -COPD no prior smoker Advair. -Acute on chronic medical debility. PT OT. 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 For subacute rehab. Repeat labs Past Medical History Past Medical History: Asthma, Fibromyalgia, GERD/Reflux, Hyperlipidemia, Hypertension, Rheumatoid Arthritis (RA), Thyroid Disorder Additional Past Medical History / Comment(s): anemia History of Any Multi-Drug Resistant Organisms: None Reported Past Surgical History: Appendectomy, Bariatric Surgery, Cholecystectomy, Heart Catheterization With Stent, Hysterectomy, Orthopedic Surgery Additional Past Surgical History / Comment(s): lap band 05/06/2004, left shoulder replaced, Right ear growth, cardiac Stent Past Anesthesia/Blood Transfusion Reactions: No Reported Reaction Date of Last Stent Placement:: 03/19/2010 Past Psychological History: Depression Smoking Status: Former smoker
[2024-03-30 05:50] LABS: African American GFR (CKD) 56 (>60 ml/min/1.73 sqM); Anion Gap 3 mmol/L; Blood Urea Nitrogen 25 mg/dL (7-17); Carbon Dioxide 32 mmol/L (22-30); Chloride 94 mmol/L (98-107); Glucose 92 mg/dL (74-99); Non-African American GFR(CKD) 48 (>60 ml/min/1.73 sqM); Sodium 129 mmol/L (137-145)
[2024-03-30 05:55] LABS: Basophils % (A) 0 %; Eosinophils # (A) 0.5 k/uL (0-0.7); Eosinophils % (A) 8 %; HCT 27.9 % (34.0-46.0); Lymphocytes # (A) 1.1 k/uL (1.0-4.8); Lymphocytes % (A) 17 %; MCH 32.4 pg (25.0-35.0); MCHC 32.2 g/dL (31.0-37.0); MCV 100.6 fL (80.0-100.0); Macrocytosis Slight; Mean Platelet Volume 8.7; Monocytes # (A) 0.4 k/uL (0-1.0); Monocytes % (A) 6 %; Neutrophils # (A) 4.3 k/uL (1.3-7.7); Neutrophils % (A) 67 %; Platelet Count 153 k/uL (150-450); RBC 2.77 m/uL (3.80-5.40); RDW 13.8 % (11.5-15.5); WBC 6.4 k/uL (3.8-10.6)
[2024-03-30 06:02] LABS: Calcium 8.9 mg/dL (8.4-10.2); Potassium 4.6 mmol/L (3.5-5.1)
[2024-03-30] MEDS: PANTOPRAZOLE 40 MG TABLET PO STA (20:10)
--- NOTE | 2024-03-30 20:15 | P.PN ---
Progress Note - Text Progress Note Date: 03/30/24 Chief Complaint: Not feeling well Pleasant 88-year-old patient follows Dr. Dong. Lives alone. Does use a walker. Stable medical conditions include fibromyalgia, GERD, hyperlipidemia, hypertension, rheumatoid arthritis, hypothyroid, anemia, CAD with stent. Patient not been feeling well for quite some time. Feels tired all the time. Good urine infections. Does take laxatives for a bowel movement though has not every day. Decreased appetite. Joints hurt her quite a bit. Does not sleep too well. She sees people sitting in the room. Sometimes talking. Her daughter is living with her right now sometimes hear her talking at night. Decreased appetite. Denies any fever and chills March 25: Patient was started on Risperdal at night. Slept well. Hallucinations greatly improved. A bit tired. On Levaquin. Blood cultures are growing gram-positive cocci in cultures. Could be contaminant. Hold off any change antibiotics for now as patient clinically better. Communicated with pharmacy March 26: Resting in bed. No hallucinations. Feels tired. Urine culture growing ESBL E. coli. On Levaquin. No fevers. Does not feel ready to go home. Blood culture appears to be contaminant March 27: Laying in bed. Feels rather tired. Does not feel she will be able to manage at home. Her daughter is currently with her. PT OT social work coordinator for rehab has been consulted. On oral Levaquin. Sleep hygiene cycle discussed with the patient. Nursing instructions communicated Has had no hallucinations March 3: In bed. Tired. Seen by physical therapy. Walked about 3 feet with a rolling walker. Spoke to social work coordinator. Being evaluated for rehab. Patient slept well last night. Call p.m. dose of Risperdal 2.5 mg nightly. Sleep hygiene reinforced. To stay till Wednesday to qualify for rehab March 4: In bed. Tired. Pending rehab. Discussed with patient. No new issues March 30: In a recliner. Continues to feel tired. Asleep often during the daytime. I again explained the sleep hygiene to the patient that sleep in the daytime makes it difficult for her to sleep at night. Active Medications Acetaminophen (Acetaminophen Tab 325 Mg Tab) 650 mg PO Q6HR PRN PRN Reason: Mild Pain or Fever > 100.5 Last Admin: 03/29/24 20:00 Dose: 650 mg Hydrocodone Bitart/Acetaminophen (Hydrocodone/Apap 5-325mg 1 Each Tab) 1 each PO Q4HR PRN PRN Reason: Moderate Pain (Scale 4 to 6) Last Admin: 03/29/24 22:18 Dose: 1 each Aspirin (Aspirin 81 Mg) 81 mg PO DAILY [facility] Last Admin: 03/30/24 08:26 Dose: 81 mg Atorvastatin Calcium (Atorvastatin 40 Mg Tab) 40 mg PO HS [facility] Last Admin: 03/29/24 20:00 Dose: 40 mg Budesonide/Formoterol Fumarate (Symbicort 80-4.5 Mcg Inhaler) 2 puff INHALATION RT-BID [facility] Last Admin: 03/30/24 19:29 Dose: 2 puff Calcium Carbonate/Glycine (Calcium Carbonate 500 Mg Chewable) 1,000 mg PO Q4HR PRN PRN Reason: Dyspepsia Last Admin: 03/25/24 18:22 Dose: 1,000 mg Dapagliflozin (Dapagliflozin Propanediol 10 Mg Tablet) 10 mg PO DAILY [facility] Last Admin: 03/30/24 08:26 Dose: 10 mg Duloxetine HCl (Duloxetine Hcl 60 Mg Capsule.Dr) 60 mg PO BID [facility] Last Admin: 03/30/24 08:27 Dose: 60 mg Enoxaparin Sodium (Enoxaparin 40 Mg/0.4 Ml Syringe) 40 mg SQ DAILY [facility] Last Admin: 03/30/24 08:26 Dose: 40 mg Famotidine (Famotidine 20 Mg Tab) 20 mg PO DAILY [facility] Last Admin: 03/30/24 08:26 Dose: 20 mg Ferrous Sulfate (Ferrous Sulfate 325 Mg Tab) 325 mg PO BID [facility] Last Admin: 03/30/24 08:27 Dose: 325 mg Folic Acid (Folic Acid 1 Mg Tab) 1 mg PO DAILY [facility] Last Admin: 03/30/24 08:26 Dose: 1 mg Lactulose (Lactulose 20 Gm/30 Ml Cup) 20 gm PO DAILY PRN PRN Reason: Constipation Last Admin: 03/28/24 11:51 Dose: 20 gm Levofloxacin (Levofloxacin 750 Mg Tab) 750 mg PO Q48H [facility] Last Admin: 03/29/24 10:16 Dose: 750 mg Levothyroxine Sodium (Levothyroxine 125 Mcg Tab) 125 mcg PO BID [facility] Last Admin: 03/30/24 08:26 Dose: 125 mcg Melatonin (Melatonin 3 Mg Tablet) 3 mg PO HS PRN PRN Reason: Insomnia Last Admin: 03/28/24 22:34 Dose: 3 mg Metoprolol Succinate (Metoprolol Succinate (Er) 25 Mg Tab.Er.24h) 25 mg PO DAILY [facility] Last Admin: 03/30/24 08:27 Dose: 25 mg Montelukast Sodium (Montelukast 10 Mg Tab) 10 mg PO HS [facility] Last Admin: 03/29/24 20:00 Dose: 10 mg Naloxone HCl (Naloxone 0.4 Mg/Ml 1 Ml Vial) 0.2 mg IV Q2M PRN PRN Reason: Opioid Reversal Ondansetron HCl (Ondansetron 4 Mg/2 Ml Vial) 4 mg IVP Q8HR PRN PRN Reason: Nausea And Vomiting Last Admin: 03/26/24 08:52 Dose: 4 mg Pantoprazole Sodium (Pantoprazole 40 Mg Tablet) 40 mg PO AC-BRKFST [facility] Last Admin: 03/30/24 06:53 Dose: 40 mg Ranolazine (Ranolazine 500 Mg Tab.Er.12h) 500 mg PO BID [facility] Last Admin: 03/30/24 08:27 Dose: 500 mg Risperidone (Risperidone 0.5 Mg Tab) 0.5 mg PO HS [facility] Last Admin: 03/29/24 20:00 Dose: 0.5 mg Social history: Lives alone. Uses a wheeled walker.. Currently daughter is living with her. Did smoke in the past. Rarely alcohol Physical examination: VITAL SIGNS: 97.7, 62, 18, 116/71, 100% on 2 L GENERAL: BMI 47.1, laying in bed, tired EYES: Pupils equal. Conjunctiva joel l. HEENT: External appearance of nose and ears normal, oral cavity grossly normal. NECK: JVD not raised; masses not palpable. HEART: First and second heart sounds are normal; no edema. LUNGS: Respiratory rate normal; decreased breath sounds. ABDOMEN: Soft, nontender, liver spleen not palpable, no masses palpable. PSYCH: [Alert and oriented x3; mood and affect tired MUSCULOSKELETAL:No Clubbing/cyanosis;muscles-grossly intact. OA INVESTIGATIONS, reviewed in the clinical context: March 30: Hemoglobin 9 sodium 129 potassium 4.6 BUN 25 creatinine 1.04. Iron 54 TIBC 217 transferrin 155 ferritin 416 March 28: White count 6 hemoglobin 8.3 platelets 173 potassium 4.7 BUN 26 creatinine 1.23 Urine culture: ESBL E. coli/Proteus Mirabella's Blood cultures: Gram-positive cocci in clusters-Staph epidermidis March 23, 2024: White count 6.5 hemoglobin 9.8 platelets 204 sodium 134 potassium 5.1 BUN 26 creatinine 0.95 UA positive for nitrite, leukoesterase, WBC 23 Influenza type A, type B, RSV, COVID-19: Not detected EKG tracing personally reviewed by me-sinus bradycardia. Chest x-ray film personally reviewed by me-a bit underpenetrated due to body mass cardiomegaly questionable venous prominence Assessment plan: -Acute UTI with cystitis, E. coli/ESBL recurrent Levaquin -Auditory and visual hallucinations.: Resolved 0.50 mg Risperdal at night. Sleep hygiene -Blood cultures positive for gram-positive cocci in clusters. Likely contamination -COPD no prior smoker Advair. -Acute on chronic medical debility. PT OT. 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 Sleep hygiene again reinforced. Plan for discharge to rehab tomorrow. Past Medical History Past Medical History: Asthma, Fibromyalgia, GERD/Reflux, Hyperlipidemia, Hypertension, Rheumatoid Arthritis (RA), Thyroid Disorder Additional Past Medical History / Comment(s): anemia History of Any Multi-Drug Resistant Organisms: None Reported Past Surgical History: Appendectomy, Bariatric Surgery, Cholecystectomy, Heart Catheterization With Stent, Hysterectomy, Orthopedic Surgery Additional Past Surgical History / Comment(s): lap band 05/06/2004, left shoulder replaced, Right ear growth, cardiac Stent Past Anesthesia/Blood Transfusion Reactions: No Reported Reaction Date of Last Stent Placement:: 03/19/2010 Past Psychological History: Depression Smoking Status: Former smoker
--- NOTE | 2024-03-31 13:56 | P.DS ---
Providers Date of admission: 03/28/24 08:42 Expected date of discharge: 03/31/24 Attending physician: Ac Edwards Primary care physician: Marlon Dong [facility] Course: Chief Complaint: Not feeling well Pleasant 88-year-old patient follows Dr. Dong. Lives alone. Does use a walker. Stable medical conditions include fibromyalgia, GERD, hyperlipidemia, hypertension, rheumatoid arthritis, hypothyroid, anemia, CAD with stent. Patient not been feeling well for quite some time. Feels tired all the time. Good urine infections. Does take laxatives for a bowel movement though has not every day. Decreased appetite. Joints hurt her quite a bit. Does not sleep too well. She sees people sitting in the room. Sometimes talking. Her daughter is living with her right now sometimes hear her talking at night. Decreased appetite. Denies any fever and chills March 25: Patient was started on Risperdal at night. Slept well. Hallucinations greatly improved. A bit tired. On Levaquin. Blood cultures are growing gram-positive cocci in cultures. Could be contaminant. Hold off any change antibiotics for now as patient clinically better. Communicated with pharmacy March 1: Resting in bed. No hallucinations. Feels tired. Urine culture growing ESBL E. coli. On Levaquin. No fevers. Does not feel ready to go home. Blood culture appears to be contaminant March 27: Laying in bed. Feels rather tired. Does not feel she will be able to manage at home. Her daughter is currently with her. PT OT social work instructor for rehab has been consulted. On oral Levaquin. Sleep hygiene cycle discussed with the patient. Nursing instructions communicated Has had no hallucinations March 3: In bed. Tired. Seen by physical therapy. Walked about 3 feet with a rolling walker. Spoke to social work instructor. Being evaluated for rehab. Patient slept well last night. Call p.m. dose of Risperdal 2.5 mg nightly. Sleep hygiene reinforced. To stay till Wednesday to qualify for rehab March 4: In bed. Tired. Pending rehab. Discussed with patient. No new issues March 30: In a recliner. Continues to feel tired. Asleep often during the daytime. I again explained the sleep hygiene to the patient that sleep in the daytime makes it difficult for her to sleep at night. March 31: Told the patient to increase oral intake in terms of food and decreased p.o. water. She can take that and other liquid form like juice Ensure etc. Has been accepted at rehab. Will complete the 6 more days of Levaquin Discussion and discharge planning more than 35 minutes Social history: Lives alone. Uses a wheeled walker.. Currently daughter is living with her. Did smoke in the past. Rarely alcohol Physical examination: VITAL SIGNS: 97.8, 68, 16, 124 x 57, 97% on 2 L GENERAL: BMI 47.1, laying in bed, tired EYES: Pupils equal. Conjunctiva joel l. HEENT: External appearance of nose and ears normal, oral cavity grossly normal. NECK: JVD not raised; masses not palpable. HEART: First and second heart sounds are normal; no edema. LUNGS: Respiratory rate normal; decreased breath sounds. ABDOMEN: Soft, nontender, liver spleen not palpable, no masses palpable. PSYCH: [Alert and oriented x3; mood and affect tired MUSCULOSKELETAL:No Clubbing/cyanosis;muscles-grossly intact. OA INVESTIGATIONS, reviewed in the clinical context: March 30: Hemoglobin 9 sodium 129 potassium 4.6 BUN 25 creatinine 1.04. Iron 54 TIBC 217 transferrin 155 ferritin 416 March 28: White count 6 hemoglobin 8.3 platelets 173 potassium 4.7 BUN 26 creatinine 1.23 Urine culture: ESBL E. coli/Proteus Mirabella's Blood cultures: Gram-positive cocci in clusters-Staph epidermidis March 23, 2024: White count 6.5 hemoglobin 9.8 platelets 204 sodium 134 potassium 5.1 BUN 26 creatinine 0.95 UA positive for nitrite, leukoesterase, WBC 23 Influenza type A, type B, RSV, COVID-19: Not detected EKG tracing personally reviewed by me-sinus bradycardia. Chest x-ray film personally reviewed by me-a bit underpenetrated due to body mass cardiomegaly questionable venous prominence Assessment plan: -Acute UTI with cystitis, E. coli/ESBL recurrent Levaquin every 48 hours, 4 more tablets of Levaquin -Auditory and visual hallucinations.: Resolved 0.50 mg Risperdal at night. Sleep hygiene -Blood cultures positive for gram-positive cocci in clusters. contamination -COPD no prior smoker Advair. -Acute on chronic medical debility. PT OT. 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 -DNR, patient wishes Disposition: Rehab at [facility] Past Medical History Past Medical History: Asthma, Fibromyalgia, GERD/Reflux, Hyperlipidemia, Hypertension, Rheumatoid Arthritis (RA), Thyroid Disorder Additional Past Medical History / Comment(s): anemia History of Any Multi-Drug Resistant Organisms: None Reported Past Surgical History: Appendectomy, Bariatric Surgery, Cholecystectomy, Heart Catheterization With Stent, Hysterectomy, Orthopedic Surgery Additional Past Surgical History / Comment(s): lap band 05/06/2004, left shoulder replaced, Right ear growth, cardiac Stent Past Anesthesia/Blood Transfusion Reactions: No Reported Reaction Date of Last Stent Placement:: 03/19/2010 Past Psychological History: Depression Smoking Status: Former smoker Plan - Discharge Summary Discharge Rx Participant: Yes New Discharge Prescriptions: New Lactulose [Cephulac] 20 gm PO DAILY PRN ml PRN Reason: Constipation Levofloxacin [Levaquin] 750 mg PO Q48H #4 tab Calcium Carbonate [Tums] 500 mg PO AC-TID #1 tab Pantoprazole [Protonix] 40 mg PO AC-BRKFST tab risperiDONE [RisperDAL] 0.5 mg PO HS #3 tab Acetaminophen Tab [Tylenol] 650 mg PO Q6HR PRN tab PRN Reason: Mild Pain Or Fever > 100.5 Continue Montelukast [Singulair] 10 mg PO HS DULoxetine HCL [Cymbalta] 60 mg PO BID Ranolazine [Ranexa] 500 mg PO BID Estrogens, Conjugated Cream [Premarin Vaginal Cream] 1 applicator VAGINAL DIRECTED Metoprolol Succinate (ER) [Toprol XL] 25 mg PO DAILY Levothyroxine Sodium [Synthroid] 125 mcg PO BID Ferrous Sulfate [Iron (65 MG Elemental)] 325 mg PO BID Fluticasone Propion/Salmeterol [Advair 100-50 Diskus] 1 puff PO RT-BID Atorvastatin [Lipitor] 40 mg PO HS Aspirin 81 mg PO DAILY Folic Acid 1 mg PO DAILY Dapagliflozin Propanediol [Farxiga] 10 mg PO DAILY Discontinued Famotidine [Pepcid] 20 mg PO DAILY LORazepam [Ativan] 1 mg PO HS Cholestyramine (with Sugar) [Cholestyramine Packet] 4 gm PO DAILY PRN PRN Reason: Constipation Cetirizine HCl [Zyrtec] 10 mg PO DAILY Spironolactone [Aldactone] 25 mg PO MOWEFR Potassium Chloride ER [K-Dur 10] 10 meq PO DAILY Furosemide [Lasix] 20 mg PO DAILY Discharge Medication List Montelukast [Singulair] 10 mg PO HS 03/12/18 [History] DULoxetine HCL [Cymbalta] 60 mg PO BID 01/05/19 [History] Aspirin 81 mg PO DAILY 11/19/23 [History] Atorvastatin [Lipitor] 40 mg PO HS 11/19/23 [History] Ferrous Sulfate [Iron (65 MG Elemental)] 325 mg PO BID 11/19/23 [History] Fluticasone Propion/Salmeterol [Advair 100-50 Diskus] 1 puff PO RT-BID 11/19/23 [History] Levothyroxine Sodium [Synthroid] 125 mcg PO BID 11/19/23 [History] Dapagliflozin Propanediol [Farxiga] 10 mg PO DAILY 03/24/24 [History] Estrogens, Conjugated Cream [Premarin Vaginal Cream] 1 applicator VAGINAL DIRECTED 03/24/24 [History] Folic Acid 1 mg PO DAILY 03/24/24 [History] Metoprolol Succinate (ER) [Toprol XL] 25 mg PO DAILY 03/24/24 [History] Ranolazine [Ranexa] 500 mg PO BID 03/24/24 [History] Acetaminophen Tab [Tylenol] 650 mg PO Q6HR PRN tab 03/31/24 [Rx] Calcium Carbonate [Tums] 500 mg PO AC-TID #1 tab 03/31/24 [Rx] Lactulose [Cephulac] 20 gm PO DAILY PRN ml 03/31/24 [Rx] Levofloxacin [Levaquin] 750 mg PO Q48H #4 tab 03/31/24 [Rx] Pantoprazole [Protonix] 40 mg PO AC-BRKFST tab 03/31/24 [Rx] risperiDONE [RisperDAL] 0.5 mg PO HS #3 tab 03/31/24 [Rx] Follow up Appointment(s)/Referral(s): Marlon Dong DO [Primary Care Provider] - 1-2 days
[2024-03-31 14:28] VITALS: BP 112/54; PULSE 64; RESP 17; TEMP 98
== END 2024-03-31 15:03 | DRG 690 ==
LOC: EC 20:28 → 6NMEDSUR 23:05 → 4SSUR 03-24 16:29 → OBSVTOIN 03-28 08:42
PROVIDERS: ADMIT Hospitalist; ATTEND Hospitalist
DX: N30.00 Acute cystitis without hematuria (principal); Z16.12 Extended spectrum beta lactamase (ESBL) resistance; Z68.42 Body mass index [BMI] 45.0-49.9, adult; R44.0 Auditory hallucinations; M79.7 Fibromyalgia; K21.9 Gastro-esophageal reflux disease without esophagitis; E78.5 Hyperlipidemia, unspecified; I10 Essential (primary) hypertension; M06.9 Rheumatoid arthritis, unspecified; E03.9 Hypothyroidism, unspecified; D64.9 Anemia, unspecified; I25.10 Atherosclerotic heart disease of native coronary artery without angina pectoris; J44.89 Other specified chronic obstructive pulmonary disease; B96.4 Proteus (mirabilis) (morganii) as the cause of diseases classified elsewhere; E66.01 Morbid (severe) obesity due to excess calories; F32.A Depression, unspecified; R44.1 Visual hallucinations; B96.20 Unspecified Escherichia coli [E. coli] as the cause of diseases classified elsewhere; Z96.612 Presence of left artificial shoulder joint; R26.89 Other abnormalities of gait and mobility; Z66 Do not resuscitate; Z88.2 Allergy status to sulfonamides; Z88.1 Allergy status to other antibiotic agents; Z79.899 Other long term (current) drug therapy; Z79.890 Hormone replacement therapy; Z79.82 Long term (current) use of aspirin; Z99.81 Dependence on supplemental oxygen; Z95.5 Presence of coronary angioplasty implant and graft; Z87.891 Personal history of nicotine dependence; Z79.84 Long term (current) use of oral hypoglycemic drugs; Z79.51 Long term (current) use of inhaled steroids
CPT/HCPCS: 80048; 82728; 83540; 83550; 85025; 93005; 94640; 94760; 96365; 96366; 96372; 96375; 99285